=== PATIENT | male | born 1940 | race Caucasian/White ===

== ENCOUNTER 2023-06-04 13:21 | Inpatient (IN) ==
[2023-06-04] MEDS ORDERED: SODIUM CHLORIDE 0.9% 1,000 ML IV ONE (14:23)
[2023-06-04 14:30] LABS: Basophils # (auto) 0.02 K/uL (0.00-0.20); Basophils % (auto) 0.4 %; Eosinophils # (auto) 0.02 K/uL (0.00-0.50); Eosinophils % (auto) 0.4 %; Hematocrit (blood only) 31.8 % (42.0-52.0); Immature Granulocytes # (auto) 0.05 K/uL (0.01-0.20); Immature Granulocytes % (auto) 0.9 %; Lymphocytes # (auto) 1.39 K/uL (1.20-3.40); Lymphocytes % (auto) 25.8 %; Mean Corpuscular Hemoglobin 35.3 pg (25.0-34.0); Mean Corpuscular Hgb Conc 34.6 g/dL (32.0-36.0); Mean Corpuscular Volume 101.9 fL (80.0-100.0); Mean Platelet Volume 10.8 fL (9.4-12.4); Monocytes # (auto) 0.45 K/uL (0.11-0.59); Monocytes % (auto) 8.4 %; Neutrophils # (auto) 3.45 K/uL (1.40-6.50); Neutrophils % (auto) 64.1 %; Platelet Count 327 K/uL (130-400); RDW Coefficient of Variation 11.9 % (11.5-14.5); RDW Standard Deviation 44.4 fL (36.4-46.3); Red Blood Count 3.12 M/uL (4.70-6.10); White Blood Count 5.38 K/ul (4.8-10.8)
--- NOTE | 2023-06-04 14:32 | Emergency Department Note ---
Impression & Plan Generalized weakness, Anemia, Hypomagnesemia, Hypokalemia ED Provider Note NAME: JERZY PADILLA JR AGE: 82 SEX: M : 1940 ARRIVES VIA: Ambulance INFORMANT: Patient, the patient's significant other ED PROVIDER(S): Venkatesh Heard DO CHIEF COMPLAINT: Weakness HPI: The patient is an 82-year-old male who presented to the emergency department for an evaluation of generalized weakness. The patient's had ongoing symptoms over the course of the last few months. He normally drinks alcohol every evening. He did not see his family doctor recently but he did see his family doctor for the symptoms a month ago. He is noticed weight loss. He had a slight cough as well as nausea and vomiting. He denies having any headache. He denies having any chest pain or abdominal pain at this time. He denies having any swelling in his legs. ROS: See above HPI for pertinent positives & negatives. A total of 10 systems reviewed and were otherwise negative. PAST MEDICAL HISTORY: See Below PAST SURGICAL HISTORY: See Below FAMILY HISTORY: See Below SOCIAL HISTORY: See Below HOME MEDICATIONS: See Below ALLERGIES: See Below VITALS: See Below PHYSICAL EXAMINATION: GENERAL: Patient is awake alert in no acute distress patient is resting comfortably and showing no signs of anxiety EYES: The conjunctivae are clear. The pupils are round and reactive. EARS, NOSE, MOUTH AND THROAT: The nose is without any evidence of any deformity. Mucous membranes are dry. NECK: The neck is nontender and supple. RESPIRATORY: Normal respiratory effort is noted there is no evidence of wheezing rhonchi or rales CARDIOVASCULAR: Tachycardic and regular heart sounds were noted to auscultation. There is no murmur. GASTROINTESTINAL: The abdomen is soft. Abdomen is nontender. MUSCULOSKELETAL/EXTREMITIES: There is no evidence of gross deformity full range of motion is noted in the hips and shoulders. SKIN: There is no obvious evidence of any rash. There are no petechiae, pallor or cyanosis noted. NEUROLOGIC: Patient is awake alert and oriented x3. Strength was diminished but symmetric. MEDICAL DECISION MAKING: The patient is an 82-year-old male who presented to the emergency department with a significant other for generalized weakness. The patient has not been able to eat or drink well for the last 2 weeks. 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 The patient was very cachectic in appearance. He was found to have multiple electrolyte abnormalities. The patient was treated with IV fluids as well as magnesium and potassium replacement. I discussed the patient's laboratory and radiographic studies with him. I do not feel he would be a good candidate for outpatient management and further work-up. For this reason I discussed his case with the on-call [facility]ist. They have agreed to evaluate the patient in the emergency department for further management and disposition. Triage Nursing notes reviewed. Prior medical records reviewed. The patient's previous weights were reviewed. He had a significant weight loss compared to his visit in the spring. Vital Signs: reviewed and remarkable for no significant abnormalities Differential diagnosis: Infection, dehydration, metabolic abnormality, hypo/hyperglycemia, electrolyte disturbance, anemia, hypoxia, cardiac sources, intracerebral event, toxicologic, neurologic, as well as other pathologies. ER treatment provided: See below Diagnostics interpreted by me: ECG: EKG was obtained in the emergency department. My interpretation is sinus tachycardia at 114 bpm. There is no ectopy. ST segment depressions were noted in the low lateral and inferior leads. This was compared to a tracing from February 21, 2019. The ST segment abnormalities are not new however the rate is increased compared to the earlier tracing. A second EKG was obtained in the emergency department. My interpretation is sinus tachycardia at 102 bpm. There were no PVCs noted. Similar ST depressions were noted. This compares similar to the earlier tracing. Cardiac Monitoring: An order was placed for continuous cardiac monitoring. The monitor shows a rate of 85 bpm with sinus rhythm. Laboratory studies: As stated above and show below. Imaging studies: See below. Radiographic imaging was reviewed by myself Consultation(s): The [facility] hospitalist, Dr. Cobb was notified about the patient, he will evaluate the patient in the emergency department for further management and disposition Past Med/Surg History Medical History Dupuytren's contracture of hand Social History Smoking Status: Never smoker Preferred Language: [place] Feels Safe at Home: Yes Allergies Allergies Allergy/AdvReac Type Severity Reaction Status Date / Time shrimp Allergy Severe Hives and Unverified 06/04/23 18:16 GI Upset erythromycin base Allergy Unknown Unknown Unverified 06/04/23 18:16 Home Meds Home Medications Medication Instructions Recorded Confirmed ibuprofen 200 mg tablet 400 mg PO Q6H PRN Pain 02/21/19 06/04/23 esomeprazole magnesium 20 mg 20 mg PO DAILY 06/04/23 06/04/23 capsule,delayed release (Nexium 24HR) fexofenadine 180 mg tablet 180 mg PO DAILY 06/04/23 06/04/23 (Melissa Allergy) Results & Data (ED) Vital Signs Vital Signs - 24 hr 06/04/23 13:42 06/04/23 14:22 06/04/23 15:10 Temperature 36 C L Temperature Source Temporal Artery Scan Pulse Rate 121 H 107 H Pulse Rate [Apical] 82 Respiratory Rate 16 18 Respiratory Effort / Characteristics Non-Labored Spontaneous Spontaneous Respiratory Depth Normal Normal Respiratory Pattern Regular Regular Blood Pressure 101/73 Blood Pressure [Right Arm] 145/98 H Blood Pressure Mean 82 Blood Pressure Mean [Right Arm] 113 Blood Pressure Position [Right Arm] Pulse Oximetry 95 95 Oxygen Delivery Method Room Air Room Air Sepsis Recent Fever Within 48 Hours No Sepsis New/Unexplained Change in Mental Status N/A Sepsis Action Taken by Nursing No Action Required 06/04/23 13:47 06/04/23 17:00 06/04/23 18:16 Temperature Temperature Source Pulse Rate 82 Pulse Rate [Apical] 79 81 Respiratory Rate 18 18 18 Respiratory Effort / Characteristics Non-Labored Spontaneous Respiratory Depth Normal Respiratory Pattern Regular Blood Pressure Blood Pressure [Right Arm] 146/93 H 148/83 H Blood Pressure Mean Blood Pressure Mean [Right Arm] 110 104 Blood Pressure Position [Right Arm] Semi-fowlers Pulse Oximetry 95 100 97 Oxygen Delivery Method Room Air Room Air Room Air Sepsis Recent Fever Within 48 Hours Sepsis New/Unexplained Change in Mental Status Sepsis Action Taken by Nursing 06/04/23 19:00 Temperature Temperature Source Pulse Rate Pulse Rate [Apical] 85 Respiratory Rate 21 Respiratory Effort / Characteristics Respiratory Depth Respiratory Pattern Blood Pressure Blood Pressure [Right Arm] 137/88 Blood Pressure Mean Blood Pressure Mean [Right Arm] 104 Blood Pressure Position [Right Arm] Pulse Oximetry 98 Oxygen Delivery Method Sepsis Recent Fever Within 48 Hours Sepsis New/Unexplained Change in Mental Status Sepsis Action Taken by [place] Medications Current Medication List: was personally reviewed by me Laboratory Data Attestation: I reviewed the patient's lab results. 06/04/23 13:52 06/04/23 13:52 Lab Results 06/04/23 06/04/23 06/04/23 Range/Units 13:52 13:52 13:52 WBC 5.38 (4.8-10.8) K/ul RBC 3.12 L (4.70-6.10) M/uL Hgb 11.0 L (14.0-18.0) g/dl Hct 31.8 L (42.0-52.0) % MCV 101.9 H (80.0-100.0) fL MCH 35.3 H (25.0-34.0) pg MCHC 34.6 (32.0-36.0) g/dL RDW Std Deviation 44.4 (36.4-46.3) fL RDW Coeff of Shayan 11.9 (11.5-14.5) % Plt Count 327 (130-400) K/uL MPV 10.8 (9.4-12.4) fL Immature Gran % (Auto) 0.9 % Neut % (Auto) 64.1 % Lymph % (Auto) 25.8 % [place] % (Auto) 8.4 % Eos % (Auto) 0.4 % Baso % (Auto) 0.4 % Neut # (Auto) 3.45 (1.40-6.50) K/uL Lymph # (Auto) 1.39 (1.20-3.40) K/uL [place] # (Auto) 0.45 (0.11-0.59) K/uL Eos # (Auto) 0.02 (0.00-0.50) K/uL Baso # (Auto) 0.02 (0.00-0.20) K/uL Immature Gran # (Auto) 0.05 (0.01-0.20) K/uL PT 10.6 (9.0-12.0) Seconds INR 1.0 (0.9-1.1) APTT 23.9 (21.0-31.0) Seconds PTT Ratio 0.8 VBG pH (7.36-7.41) VBG pCO2 (38-50) mmHg VBG pO2 mmHg VBG HCO3 mmol/L VBG O2 Saturation % VBG Base Excess mEq/L Sodium 136 (136-145) mmol/L Potassium 3.1 L (3.5-5.1) mmol/L Chloride 97 L (98-107) mmol/L Carbon Dioxide 23 (21-32) mmol/L Anion Gap 16 H (3-11) BUN 18 (6-23) mg/dl Creatinine 0.58 L (0.6-1.4) mg/dl Est Cr Clr Drug Dosing Not Reportable Est GFR ( Amer) 110.0 ml/min Est GFR (Non-Af Amer) 94.9 ml/min BUN/Creatinine Ratio 31.0 H (10-20) Glucose 98 (70-99(Fasting)) mg/dl Lactate (0.4-2.0) mmol/L Calcium 9.1 (8.6-10.3) mg/dl Phosphorus (2.5-4.9) mg/dl Magnesium 1.6 L (1.7-2.4) mg/dl Total Bilirubin 0.7 (0.2-1.0) mg/dl AST 36 (13-39) U/L ALT 14 (7-52) U/L Alkaline Phosphatase 62 (34-104) U/L Troponin I High Sens 7.1 (0-20) pg/ml C-Reactive Protein 4.13 H (0-0.5) mg/dl Total Protein 7.5 (6.0-8.3) gm/dl Albumin 3.2 L (3.4-5.0) gm/dl Globulin 4.3 H (2.5-4.0) gm/dl Albumin/Globulin Ratio 0.7 L (0.9-2) Lipase (11-82) U/L Procalcitonin (0-0.5) ng/ml TSH 2.309 (0.300-4.500) uIu/ml Adenovirus (PCR) (NotDetected) B. pertussis DNA (PCR) (NotDetected) B.parapertussis DNA PCR (NotDetected) C. pneumoniae DNA (PCR) (NotDetected) Coronavirus OC43 (PCR) (NotDetected) Coronavirus HKU1 (PCR) (NotDetected) Coronavirus 229E (PCR) (NotDetected) SARS-CoV-2 (PCR) (NotDetected) Coronavirus NL63 (PCR) (NotDetected) Human Metapneumovir PCR (NotDetected) Influenza Type A (PCR) (NotDetected) Influenza Type B (PCR) (NotDetected) M. pneumoniae (PCR) (NotDetected) Parainfluenza 1 (PCR) (NotDetected) Parainfluenza 2 (PCR) (NotDetected) Parainfluenza 3 (PCR) (NotDetected) Parainfluenza 4 (PCR) (NotDetected) RSV (PCR) (NotDetected) Entero/Rhino (PCR) (NotDetected) 06/04/23 06/04/23 06/04/23 Range/Units 15:00 15:05 15:05 WBC (4.8-10.8) K/ul RBC (4.70-6.10) M/uL Hgb (14.0-18.0) g/dl Hct (42.0-52.0) % MCV (80.0-100.0) fL MCH (25.0-34.0) pg MCHC (32.0-36.0) g/dL RDW Std Deviation (36.4-46.3) fL RDW Coeff of Shayan (11.5-14.5) % Plt Count (130-400) K/uL MPV (9.4-12.4) fL Immature Gran % (Auto) % Neut % (Auto) % Lymph % (Auto) % [place] % (Auto) % Eos % (Auto) % Baso % (Auto) % Neut # (Auto) (1.40-6.50) K/uL Lymph # (Auto) (1.20-3.40) K/uL [place] # (Auto) (0.11-0.59) K/uL Eos # (Auto) (0.00-0.50) K/uL Baso # (Auto) (0.00-0.20) K/uL Immature Gran # (Auto) (0.01-0.20) K/uL PT (9.0-12.0) Seconds INR (0.9-1.1) APTT (21.0-31.0) Seconds PTT Ratio VBG pH (7.36-7.41) VBG pCO2 (38-50) mmHg VBG pO2 mmHg VBG HCO3 mmol/L VBG O2 Saturation % VBG Base Excess mEq/L Sodium (136-145) mmol/L Potassium (3.5-5.1) mmol/L Chloride (98-107) mmol/L Carbon Dioxide (21-32) mmol/L Anion Gap (3-11) BUN (6-23) mg/dl Creatinine (0.6-1.4) mg/dl Est Cr Clr Drug Dosing Est GFR ( Amer) ml/min Est GFR (Non-Af Amer) ml/min BUN/Creatinine Ratio (10-20) Glucose (70-99(Fasting)) mg/dl Lactate 2.5 H* (0.4-2.0) mmol/L Calcium (8.6-10.3) mg/dl Phosphorus (2.5-4.9) mg/dl Magnesium (1.7-2.4) mg/dl Total Bilirubin (0.2-1.0) mg/dl AST (13-39) U/L ALT (7-52) U/L Alkaline Phosphatase (34-104) U/L Troponin I High Sens (0-20) pg/ml C-Reactive Protein (0-0.5) mg/dl Total Protein (6.0-8.3) gm/dl Albumin (3.4-5.0) gm/dl Globulin (2.5-4.0) gm/dl Albumin/Globulin Ratio (0.9-2) Lipase (11-82) U/L Procalcitonin < 0.05 (0-0.5) ng/ml TSH (0.300-4.500) uIu/ml Adenovirus (PCR) Not Detected (NotDetected) B. pertussis DNA (PCR) Not Detected (NotDetected) B.parapertussis DNA PCR Not Detected (NotDetected) C. pneumoniae DNA (PCR) Not Detected (NotDetected) Coronavirus OC43 (PCR) Not Detected (NotDetected) Coronavirus HKU1 (PCR) Not Detected (NotDetected) Coronavirus 229E (PCR) Not Detected (NotDetected) SARS-CoV-2 (PCR) Not Detected (NotDetected) Coronavirus NL63 (PCR) Not Detected (NotDetected) Human Metapneumovir PCR Not Detected (NotDetected) Influenza Type A (PCR) Not Detected (NotDetected) Influenza Type B (PCR) Not Detected (NotDetected) M. pneumoniae (PCR) Not Detected (NotDetected) Parainfluenza 1 (PCR) Not Detected (NotDetected) Parainfluenza 2 (PCR) Not Detected (NotDetected) Parainfluenza 3 (PCR) Not Detected (NotDetected) Parainfluenza 4 (PCR) Not Detected (NotDetected) RSV (PCR) Not Detected (NotDetected) Entero/Rhino (PCR) Not Detected (NotDetected) 06/04/23 06/04/23 06/04/23 Range/Units 15:05 18:06 18:06 WBC (4.8-10.8) K/ul RBC (4.70-6.10) M/uL Hgb (14.0-18.0) g/dl Hct (42.0-52.0) % MCV (80.0-100.0) fL MCH (25.0-34.0) pg MCHC (32.0-36.0) g/dL RDW Std Deviation (36.4-46.3) fL RDW Coeff of Shayan (11.5-14.5) % Plt Count (130-400) K/uL MPV (9.4-12.4) fL Immature Gran % (Auto) % Neut % (Auto) % Lymph % (Auto) % [place] % (Auto) % Eos % (Auto) % Baso % (Auto) % Neut # (Auto) (1.40-6.50) K/uL Lymph # (Auto) (1.20-3.40) K/uL [place] # (Auto) (0.11-0.59) K/uL Eos # (Auto) (0.00-0.50) K/uL Baso # (Auto) (0.00-0.20) K/uL Immature Gran # (Auto) (0.01-0.20) K/uL PT (9.0-12.0) Seconds INR (0.9-1.1) APTT (21.0-31.0) Seconds PTT Ratio VBG pH 7.37 (7.36-7.41) VBG pCO2 42 (38-50) mmHg VBG pO2 29 mmHg VBG HCO3 24 mmol/L VBG O2 Saturation < 60.0 % VBG Base Excess -1.0 mEq/L Sodium (136-145) mmol/L Potassium (3.5-5.1) mmol/L Chloride (98-107) mmol/L Carbon Dioxide (21-32) mmol/L Anion Gap (3-11) BUN (6-23) mg/dl Creatinine (0.6-1.4) mg/dl Est Cr Clr Drug Dosing Est GFR ( Amer) ml/min Est GFR (Non-Af Amer) ml/min BUN/Creatinine Ratio (10-20) Glucose (70-99(Fasting)) mg/dl Lactate 1.4 (0.4-2.0) mmol/L Calcium (8.6-10.3) mg/dl Phosphorus 3.0 (2.5-4.9) mg/dl Magnesium (1.7-2.4) mg/dl Total Bilirubin (0.2-1.0) mg/dl AST (13-39) U/L ALT (7-52) U/L Alkaline Phosphatase (34-104) U/L Troponin I High Sens (0-20) pg/ml C-Reactive Protein (0-0.5) mg/dl Total Protein (6.0-8.3) gm/dl Albumin (3.4-5.0) gm/dl Globulin (2.5-4.0) gm/dl Albumin/Globulin Ratio (0.9-2) Lipase 16 (11-82) U/L Procalcitonin (0-0.5) ng/ml TSH (0.300-4.500) uIu/ml Adenovirus (PCR) (NotDetected) B. pertussis DNA (PCR) (NotDetected) B.parapertussis DNA PCR (NotDetected) C. pneumoniae DNA (PCR) (NotDetected) Coronavirus OC43 (PCR) (NotDetected) Coronavirus HKU1 (PCR) (NotDetected) Coronavirus 229E (PCR) (NotDetected) SARS-CoV-2 (PCR) (NotDetected) Coronavirus NL63 (PCR) (NotDetected) Human Metapneumovir PCR (NotDetected) Influenza Type A (PCR) (NotDetected) Influenza Type B (PCR) (NotDetected) M. pneumoniae (PCR) (NotDetected) Parainfluenza 1 (PCR) (NotDetected) Parainfluenza 2 (PCR) (NotDetected) Parainfluenza 3 (PCR) (NotDetected) Parainfluenza 4 (PCR) (NotDetected) RSV (PCR) (NotDetected) Entero/Rhino (PCR) (NotDetected) Administered Medications Discontinued Medications Sodium Chloride (Nss) 1,000 mls @ 999 mls/hr IV .Q1H1M ONE Stop: 06/04/23 15:23 Last Infusion: 06/04/23 15:53 Dose: 0 mls/hr Documented By: Admin: 06/04/23 14:52 Dose: 999 mls/hr Documented By: MADELINE Magnesium Sulfate/Dextrose (Magnesium Sulfate / D5w) 1 gm in 100 mls @ 100 mls/hr IV NOW STA Stop: 06/04/23 15:42 Last Infusion: 06/04/23 15:53 Dose: 0 mls/hr Documented By: Admin: 06/04/23 14:53 Dose: 100 mls/hr Documented By: MADELINE Potassium Chloride (K Jasson / Wtr) 10 meq in 100 mls @ 100 mls/hr IV ONE ONE Stop: 06/04/23 15:42 Last Infusion: 06/04/23 15:53 Dose: 0 mls/hr Documented By: Admin: 06/04/23 14:53 Dose: 100 mls/hr Documented By: MADELINE Ioversol (Optiray 320 100ml) 90 ml IV ONCE ONE Stop: 06/04/23 18:38 Last Admin: 06/04/23 18:37 Dose: 90 ml Documented By: HIPOLITO Imaging Data Attestation: I personally reviewed and interpreted this imaging study as follows: My Impression: 1 view chest x-ray was obtained in the emergency department. My interpretation is no free air or definite infiltrate, final report below Radiologist's Impression: Chest X-Ray 06/04/23 13:47 SINGLE VIEW CHEST CLINICAL HISTORY: Generalized weakness. FINDINGS: 2 AP, portable, upright chest radiographs are compared to chest x-ray and chest CT dated 02/21/2019. The cardiomediastinal silhouette is unremarkable. Chronic interstitial thickening is similar to previous. The lungs and pleural spaces are clear. No pneumothorax is seen. The skeletal structures are osteopenic. The bony thorax is grossly intact. IMPRESSION: No active disease in the chest. ACT 112: Negative or not required by law. Electronically signed by: Vladislav Wang M.D. 06/04/2023 2:34 PM Abdomen/Pelvis CT 06/04/23 18:01 Exam(s): CT ABDOMEN + PELVIS With Contrast IV Amt: 90 ml optiray 320 EXAM: CT Abdomen and Pelvis With Intravenous Contrast CLINICAL HISTORY: Reason for exam: cachetic, change bowel habit, dysphagia? malignancy. TECHNIQUE: Axial computed tomography images of the abdomen and pelvis with intravenous contrast. CTDI is 15.49 mGy and DLP is 1186.72 mGy-cm. Automated exposure control was utilized for the study. A dose lowering technique was utilized adhering to the principles of ALARA. CONTRAST: Patient received 90 ml optiray 320 of IV contrast COMPARISON: No relevant prior studies available. FINDINGS: Lung bases: Unremarkable. No mass. No consolidation. 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 Slight fatty infiltration of the liver, increased since previous. Gallbladder and bile ducts: Unremarkable. No calcified stones. No ductal dilation. Pancreas: Unremarkable. No mass. No ductal dilation. Spleen: Unremarkable. No splenomegaly. Adrenals: Unremarkable. No mass. Kidneys and ureters: Unremarkable. No solid mass. No hydronephrosis. Stomach and bowel: Bowel loops are nondilated. No acute inflammatory changes are seen involving the bowel. No mucosal thickening. PELVIS: Appendix: No findings to suggest acute appendicitis. Bladder: Unremarkable. No mass. Reproductive: Unremarkable as visualized. ABDOMEN and PELVIS: Intraperitoneal space: Unremarkable. No free air. No significant fluid collection. Bones/joints: Moderate to severe multilevel degenerative changes are seen throughout the spine. No acute fracture or subluxation is seen. Soft tissues: Unremarkable. Vasculature: The abdominal aorta is mildly calcified but nondilated. There is no aneurysm or dissection. Lymph nodes: Unremarkable. No enlarged lymph nodes. IMPRESSION: Bowel loops are nondilated. No acute inflammatory changes are seen involving the bowel. No mass or lymphadenopathy is seen. Electronically signed by: Miguel Shi MD 06/04/23 19:[address] 06/04/23 18:01 Exam(s): CT CHEST With Contrast IV Amt: 90 ml optiray 320 EXAM: CT Chest With Intravenous Contrast CLINICAL HISTORY: Reason for exam: cachetic, left ptosis, cough, dysphagia ?malignancy. TECHNIQUE: Axial computed tomography images of the chest with intravenous contrast. CTDI is 15.49 mGy and DLP is 1186.72 mGy-cm. Automated exposure control was utilized for the study. A dose lowering technique was utilized adhering to the principles of ALARA. CONTRAST: Patient received 90 ml optiray 320 of IV contrast COMPARISON: February 21, 2019 FINDINGS: Lungs: Small amount of scarring in the lung apices and lung bases. No acute appearing airspace infiltrate is seen. Pleural space: Unremarkable. No pneumothorax. No significant effusion. Heart: The heart is not enlarged. Severe coronary calcification is present. No pericardial effusion. Bones/joints: Moderate multilevel osteophytosis throughout the spine. No acute fracture or destructive bone lesion is seen. No dislocation. Soft tissues: Unremarkable. 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 There is no dissection. The pulmonary arterial tree is well opacified with contrast. No pulmonary embolism is identified. Lymph nodes: Unremarkable. No enlarged lymph nodes. IMPRESSION: 1. 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 There is no dissection. 2. The pulmonary arterial tree is well opacified with contrast. No pulmonary embolism is identified. 3. The heart is not enlarged. Severe coronary calcification is present. No pericardial effusion. Electronically signed by: Miguel Shi MD 06/04/23 19:42 PM Discharge Plan Visit Data Chief Complaint: Weakness Stated Complaint: WEAKNESS ED Provider: Venkatesh Heard Discharge Problem: Generalized weakness, Anemia, Hypomagnesemia, Hypokalemia Patient Disposition: Being Evaluated by Hospitalist Forms Stand Alone Forms: [facility] [employer] Prescriptions Prescriptions: No Action ibuprofen 200 mg Tablet 400 mg PO Q6H PRN (Reason: Pain) fexofenadine [Melissa Allergy] 180 mg Tablet 180 mg PO DAILY esomeprazole magnesium [Nexium 24HR] 20 mg Capsule,Delayed Release(Dr/Ec) 20 mg PO DAILY Referrals Referrals: Sea Roberts [Primary Care Provider] -
--- NOTE | 2023-06-04 14:35 | XRay Report ---
SINGLE VIEW CHEST CLINICAL HISTORY: Generalized weakness. FINDINGS: 2 AP, portable, upright chest radiographs are compared to chest x-ray and chest CT dated . The cardiomediastinal silhouette is unremarkable. Chronic interstitial thickening is similar to previous. The lungs and pleural spaces are clear. No pneumothorax is seen. The skeletal structure s are osteopenic. The bony thorax is grossly intact. IMPRESSION: No active disease in the chest. ACT 112: Negative or not required by law. Electronically signed by: Vladislav Wang M.D. 06/04/2023 2:34 PM
[2023-06-04 14:38] LABS: Alanine Aminotransferase 14 U/L (7-52); Albumin Globulin Ratio 0.7 (0.9-2); Albumin Level 3.2 gm/dl (3.4-5.0); Alkaline Phosphatase 62 U/L (34-104); Anion Gap 16 (3-11); Aspartate Aminotransferase 36 U/L (13-39); Bilirubin,Total 0.7 mg/dl (0.2-1.0); Blood Urea Nitrogen 18 mg/dl (6-23); Calcium 9.1 mg/dl (8.6-10.3); Carbon Dioxide 23 mmol/L (21-32); Chloride 97 mmol/L (98-107); Est GFR (Non-African American) 94.9 ml/min; Globulin 4.3 gm/dl (2.5-4.0); Glucose 98 mg/dl (70-99(Fasting)); Magnesium 1.6 mg/dl (1.7-2.4); Potassium 3.1 mmol/L (3.5-5.1); Sodium 136 mmol/L (136-145); Total Protein 7.5 gm/dl (6.0-8.3)
[2023-06-04] MEDS ORDERED: MAGNESIUM SULFATE / D5W 1 GM/100 ML BAG IV STA (14:43)
[2023-06-04] MEDS ORDERED: POTASSIUM CHLORIDE / WTR 10 MEQ/100 ML PLCT IV ONE (14:43)
[2023-06-04 14:44] LABS: Troponin I High Sensitivity 7.1 pg/ml (0-20)
[2023-06-04 14:53] LABS: Thyroid Stimulating Hormone 2.309 uIu/ml (0.300-4.500)
[2023-06-04 15:07] LABS: Partial Thromboplastin Ratio 0.8; Partial Thromboplastin Time 23.9 Seconds (21.0-31.0); Prothrombin Time 10.6 Seconds (9.0-12.0)
[2023-06-04 15:08] LABS: C Reactive Protein 4.13 mg/dl (0-0.5)
[2023-06-04 15:24] LABS: HCO3 VBG 24 mmol/L; Oxygen Saturation VBG < 60.0 %; PCO2 VBG 42 mmHg (38-50); PO2 VBG 29 mmHg; pH VBG 7.37 (7.36-7.41)
[2023-06-04 16:14] LABS: Adenovirus PCR Not Detected (NotDetected); Bordetella parapertussis PCR Not Detected (NotDetected); Bordetella pertussis PCR Not Detected (NotDetected); Chlamydia pneumoniae PCR Not Detected (NotDetected); Coronavirus 229E PCR Not Detected (NotDetected); Coronavirus CoV-2 (COVID19)PCR Not Detected (NotDetected); Coronavirus HKU1 PCR Not Detected (NotDetected); Coronavirus NL63 PCR Not Detected (NotDetected); Coronavirus OC43PCR Not Detected (NotDetected); Human Metapneumovirus PCR Not Detected (NotDetected); Influenza A PCR Not Detected (NotDetected); Influenza B PCR Not Detected (NotDetected); Mycoplasma pneumoniae PCR Not Detected (NotDetected); Parainfluenza Virus 1 PCR Not Detected (NotDetected); Parainfluenza Virus 2 PCR Not Detected (NotDetected); Parainfluenza Virus 3 PCR Not Detected (NotDetected); Parainfluenza Virus 4 PCR Not Detected (NotDetected); Respiratory Syncytial VirusPCR Not Detected (NotDetected); Rhinovirus/Enterovirus PCR Not Detected (NotDetected)
--- NOTE | 2023-06-04 17:36 | Electrocardiogram Report ---
Test Reason : Blood Pressure : / mmHG Vent. Rate : 102 BPM Atrial Rate : 102 BPM P-R Int : 154 ms QRS Dur : 082 ms QT Int : 380 ms P-R-T Axes : 076 -16 079 degrees QTc Int : 495 ms Sinus tachycardia Nonspecific ST and T wave abnormality Abnormal ECG When compared with ECG of 21-FEB-2019 08:51, Vent. rate has increased BY 39 BPM Nonspecific T wave abnormality now evident in Lateral leads QT has lengthened Confirmed by Dale Altamirano ([id number]) on 06/04/2023 5:36:28 PM Referred By: REFERRED SELF Confirmed By:Drew Altamirano
--- NOTE | 2023-06-04 18:01 | History & Physical Report ---
Date of Service June 04, 2023 Assessment & Plan (1) Generalized weakness: Plan: Suspect due to general malnourishment in setting of dysphagia Dietary consulted Workup for dysphagia as below B1/B12 levels with AM labs PT/OT assessments (2) Dysphagia: Plan: Concerning for esophageal vs. mass. Increasing dysphagia to solids causing severe malnutrition. Will consult GI to consider inpatient EGD. CT C/A/P with IV contrast to assess for large mass given concurrent weight loss, cough, left sided ptosis Full liquid now, NPO after midnight (3) Hypomagnesemia: Plan: Suspect from poor nutrition Mg sulfate 1g IV given in ER, continue additional 2g IV overnight with repeat level daily until stable (4) Hypokalemia: Plan: Suspect from poor nutrition Add 40 meq to IV fluids and repeat with AM labs (5) Macrocytic anemia: Plan: B12 and folate level with AM labs (6) Severe protein-calorie malnutrition: Plan: Consult dietary, will likely need full liquid diet until EGD performed therefore GI to consider this inpatient to help with malnutrition Plan VTE Prophylaxis - deferred pending EGD Diet - full liquid, NPO after midnight Disposition - admit to med/surg Admission and Anticipated Discharge Date Admission Date: June 04, 2023 History of Present Illness Chief Complaint: Generalized weakness Primary Care Provider: Sea Roberts Ahmet Alvarez is an 82 year old male who presents to the ER due to generalized weakness, dysphagia, ptosis and cough. He reports 2 months of progressive worsening symptoms. He was going to go to his outpatient physician 2 weeks ago but the family were having car troubles and unable to take him. His bilateral weakness was so bad this morning that he asked his to call for an ambulance to take him to hospital. He reports significant weight loss over the same time period and review of chart weight reports 10 kg weight loss since December. He has been eating and drinking less with less bowel movements. Having less of an appetite but also thicker foods such as belgian fries have been getting progressively stuck, no current problems with liquids. No change in speech or vision although he has had progressive problems with left eye ptosis over the same period of time. Weakness is bilateral. No change in sensation. No chest pain or abdominal pain. No urinary symptoms. No fever or chills. No odynophagia. Allergies Allergy/AdvReac Type Severity Reaction Status Date / Time shrimp Allergy Severe Hives and Unverified 06/04/23 18:16 GI Upset erythromycin base Allergy Unknown Unknown Unverified 06/04/23 18:16 Home Medications Medication Instructions Recorded Confirmed Type ibuprofen 200 mg tablet 400 mg PO Q6H PRN Pain 02/21/19 06/04/23 History esomeprazole magnesium 20 mg 20 mg PO DAILY 06/04/23 06/04/23 History capsule,delayed release (Nexium 24HR) fexofenadine 180 mg tablet 180 mg PO DAILY 06/04/23 06/04/23 History (Melissa Allergy) Past Med/Surg History Medical History Dupuytren's contracture of hand Social History Smoking Status: Never smoker Hx Alcohol Use: Yes Hx Substance Use: No Preferred Language: Lithuanian Communication Ability: Effective Sports Marketing Specialist Required: No Beliefs That Will Affect Care: None Current Living Situation: Spouse Feels Safe at Home: Yes Safety Concerns: Feels Safe At This Time Assistive Devices: Other Assistive Devices Comment: clutches to furniture Review of Systems Review of Systems: All systems reviewed & are unremarkable except as noted in HPI & below Physical Exam Constitutional: well developed and + cachectic; + not well nourished and no acute distress Eyes: Left ptosis, Difficult to assess pupil reflex as unable to keep eyes open but appears equal ENMT: Mouth: + dry oral mucous membranes Respiratory: normal respiratory effort, lungs clear to auscultation Cardiovascular: RRR, no murmur, no edema Gastrointestinal (Abdomen): Inspection/Auscultation: abdomen normal to inspection and + hypoactive bowel sounds; abdomen not distended Percussion/Palpation: abdomen soft; abdomen nontender, no guarding and abdomen not rigid Skin: no rashes, warm and dry Neurologic: moves all extremities and awake; not confused Psychiatric: A+Ox3, euthymic affect Genitourinary: no CVA tenderness Results & Data Results & Data Vital Signs (Past 12 Hours) Vital Signs Temp Pulse Pulse Resp BP BP Pulse Ox 06/04/23 17:00 79 18 146/93 H 100 06/04/23 13:47 82 18 95 06/04/23 15:10 82 18 145/98 H 95 06/04/23 14:22 107 H 06/04/23 13:42 36 C L 121 H 16 101/73 95 O2 Del Method 06/04/23 17:00 Room Air 06/04/23 13:47 Room Air 06/04/23 15:10 Room Air 06/04/23 14:22 06/04/23 13:42 Room Air Laboratory Results Abnormal lab results 06/04/23 06/04/23 06/04/23 Range/Units 13:52 13:52 15:05 RBC 3.12 L (4.70-6.10) M/uL Hgb 11.0 L (14.0-18.0) g/dl Hct 31.8 L (42.0-52.0) % MCV 101.9 H (80.0-100.0) fL MCH 35.3 H (25.0-34.0) pg Potassium 3.1 L (3.5-5.1) mmol/L Chloride 97 L (98-107) mmol/L Anion Gap 16 H (3-11) Creatinine 0.58 L (0.6-1.4) mg/dl BUN/Creatinine Ratio 31.0 H (10-20) Lactate 2.5 H* (0.4-2.0) mmol/L Magnesium 1.6 L (1.7-2.4) mg/dl C-Reactive Protein 4.13 H (0-0.5) mg/dl Albumin 3.2 L (3.4-5.0) gm/dl Globulin 4.3 H (2.5-4.0) gm/dl Albumin/Globulin Ratio 0.7 L (0.9-2) Diagnostic Findings SINGLE VIEW CHEST CLINICAL HISTORY: Generalized weakness. FINDINGS: 2 AP, portable, upright chest radiographs are compared to chest x-ray and chest CT dated 02/21/2019. The cardiomediastinal silhouette is unremarkable. Chronic interstitial thickening is similar to previous. The lungs and pleural spaces are clear. No pneumothorax is seen. The skeletal structures are osteopenic. The bony thorax is grossly intact. IMPRESSION: No active disease in the chest. Medications Administered ER Medications Given: Normal saline 1000ml bolus Magnesium sulfate 1g IV Potassium chloride 10 meq IV ECG Rate (beats per minute): 102 Rhythm: sinus tachycardia Findings: + nonspecific-ST abn Comparison ECG Date: from (21 February 2019) Change: no significant change Code Status & VTE Plan Code Status Full VTE Prophylaxis Plan VTE Prophylaxis will be ordered: Yes PG Care Time/CCT Total # of Minutes Spent Total Time Spent with Patient: Total time spent is greater than 50% in coordination of care (as documented) at patient's floor/unit and/or counseling patient: Coding Level of Care Code 52398 INT INP/OBS CARE 3/75MIN Diagnoses Generalized weakness R53.1 Esophageal dysphagia R13.19 Dysphagia type: esophageal phase Hypomagnesemia E83.42 Hypokalemia E87.6 Macrocytic anemia D53.9 Severe protein-calorie malnutrition E43 (2) Dysphagia Dysphagia type: esophageal phase Qualified Code(s): R13.19 - Other dysphagia
[2023-06-04] MEDS ORDERED: OPTIRAY 320 100ml IV ONE (18:37)
--- NOTE | 2023-06-04 19:43 | CT Scan Report ---
Exam(s): CT CHEST With Contrast IV Amt: 90 ml optiray 320 EXAM: CT Chest With Intravenous Contrast CLINICAL HISTORY: Reason for exam: cachetic, left ptosis, cough, dysphagia ?malignancy. TECHNIQUE: Axial computed tomography images of the chest with intravenous contrast. CTDI is 15.49 mGy and DLP is 1186.72 mGy-cm. Automated exposure control was utilized for the study. A dose lowering technique was utilized adhering to the principles of ALARA. CONTRAST: Patient received 90 ml optiray 320 of IV contrast COMPARISON: February 21, 2019 FINDINGS: Lungs: Small amount of scarring in the lung apices and lung bases. No acute appearing airspace infiltrate is seen. Pleural space: Unremarkable. No pneumothorax. No significant effusion. Heart: The heart is not enlarged. Severe coronary calcification is present. No pericardial effusion. Bones/joints: Moderate multilevel osteophytosis throughout the spine. No acute fracture or destructive bone lesion is seen. No dislocation. Soft tissues: Unremarkable. 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 There is no dissection. The pulmonary arterial tree is well opacified with contrast. No pulmonary embolism is identified. Lymph nodes: Unremarkable. No enlarged lymph nodes. IMPRESSION: 1. 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 There is no dissection. 2. The pulmonary arterial tree is well opacified with contrast. No pulmonary embolism is identified. 3. The heart is not enlarged. Severe coronary calcification is present. No pericardial effusion. Electronically signed by: Miguel Shi MD 06/04/23 19:42 PM
--- NOTE | 2023-06-04 19:51 | CT Scan Report ---
Exam(s): CT ABDOMEN + PELVIS With Contrast IV Amt: 90 ml optiray 320 EXAM: CT Abdomen and Pelvis With Intravenous Contrast CLINICAL HISTORY: Reason for exam: cachetic, change bowel habit, dysphagia? malignancy. TECHNIQUE: Axial computed tomography images of the abdomen and pelvis with intravenous contrast. CTDI is 15.49 mGy and DLP is 1186.72 mGy-cm. Automated exposure control was utilized for the study. A dose lowering technique was utilized adhering to the principles of ALARA. CONTRAST: Patient received 90 ml optiray 320 of IV contrast COMPARISON: No relevant prior studies available. FINDINGS: Lung bases: Unremarkable. No mass. No consolidation. 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 Slight fatty infiltration of the liver, increased since previous. Gallbladder and bile ducts: Unremarkable. No calcified stones. No ductal dilation. Pancreas: Unremarkable. No mass. No ductal dilation. Spleen: Unremarkable. No splenomegaly. Adrenals: Unremarkable. No mass. Kidneys and ureters: Unremarkable. No solid mass. No hydronephrosis. Stomach and bowel: Bowel loops are nondilated. No acute inflammatory changes are seen involving the bowel. No mucosal thickening. PELVIS: Appendix: No findings to suggest acute appendicitis. Bladder: Unremarkable. No mass. Reproductive: Unremarkable as visualized. ABDOMEN and PELVIS: Intraperitoneal space: Unremarkable. No free air. No significant fluid collection. Bones/joints: Moderate to severe multilevel degenerative changes are seen throughout the spine. No acute fracture or subluxation is seen. Soft tissues: Unremarkable. Vasculature: The abdominal aorta is mildly calcified but nondilated. There is no aneurysm or dissection. Lymph nodes: Unremarkable. No enlarged lymph nodes. IMPRESSION: Bowel loops are nondilated. No acute inflammatory changes are seen involving the bowel. No mass or lymphadenopathy is seen. Electronically signed by: Miguel Shi MD 06/04/23 19:50 PM
[2023-06-04] MEDS: POTASSIUM CHLORIDE 40 MEQ in D5W AND 1/2NSS 1,000 ML IV SCH (21:49)
[2023-06-04] MEDS: MAGNESIUM SULFATE / D5W 1 GM/100 ML BAG IV SCH ×2 (21:50→23:37)
[2023-06-05 06:41] LABS: Basophils # (auto) 0.03 K/uL (0.00-0.20); Basophils % (auto) 0.7 %; Eosinophils # (auto) 0.04 K/uL (0.00-0.50); Eosinophils % (auto) 0.9 %; Hematocrit (blood only) 30.7 % (42.0-52.0); Hemoglobin 10.6 g/dl (14.0-18.0); Immature Granulocytes # (auto) 0.07 K/uL (0.01-0.20); Immature Granulocytes % (auto) 1.6 %; Lymphocytes # (auto) 0.98 K/uL (1.20-3.40); Lymphocytes % (auto) 22.3 %; Mean Corpuscular Hemoglobin 35.2 pg (25.0-34.0); Mean Corpuscular Hgb Conc 34.5 g/dL (32.0-36.0); Mean Platelet Volume 10.2 fL (9.4-12.4); Monocytes # (auto) 0.39 K/uL (0.11-0.59); Monocytes % (auto) 8.9 %; Neutrophils # (auto) 2.88 K/uL (1.40-6.50); Neutrophils % (auto) 65.6 %; Platelet Count 233 K/uL (130-400); RDW Standard Deviation 45.1 fL (36.4-46.3); Red Blood Count 3.01 M/uL (4.70-6.10); White Blood Count 4.39 K/ul (4.8-10.8)
[2023-06-05 07:01] LABS: BUN Creatinine Ratio 32.6 (10-20); Calcium 8.6 mg/dl (8.6-10.3); Creatinine Clr Calc Pharmacy 91.9 ml/min; Est GFR (Non-African American) 104.4 ml/min; Magnesium 2.3 mg/dl (1.7-2.4); Potassium 3.6 mmol/L (3.5-5.1)
--- NOTE | 2023-06-05 07:39 | Hospitalist Progress Note ---
Date of Service June 05, 2023 Assessment & Plan (1) Generalized weakness: Plan: Severe generalized weakness, solid food dysphagia, significant unintentional weight loss, electrolyte disturbances likely nutritional, elevated inflammatory markers (CRP >4) Left eye ptosis Suspect due to general malnourishment in setting of dysphagia Nutrition consulted Workup for dysphagia as below B1 - P treat empirically, B12 = 384 start oral supplement when able PT/OT assessments check phos = normal 3.0, repleted mag = 2.3 and K - 3.6. Likely to need additional potassium repletion - currently has K in IVF, AM BMP (2) Dysphagia: Plan: Consulted GI - EGD planned tomorrow CT C/A/P with IV contrast 06/04 reviewed - no findings to explain clinical picture Full liquid now, NPO after midnight IV PPI pending further evaluation (3) Hypomagnesemia: Plan: from poor nutrition replaced IV, recheck in AM (4) Hypokalemia: Plan: from poor nutrition continue 40 meq to IV fluids and repeat with AM labs (5) Severe protein-calorie malnutrition: Plan: will likely need full liquid diet until EGD performed therefore GI to consider this inpatient to help with malnutrition -nutrition consult (6) Ptosis of eyelid, 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 (years) he sees specialists in [place] and has multiple eyelid surgeries, last a year ago (7) Macrocytic anemia: Plan: B12 and folate level with AM labs (8) Positive blood culture: Plan: staph epi in 3/4 bottles drawn in ED -contaminant vs bacteremia -start IV vancomycin -repeat blood cultures -TTE (9) Folate deficiency: Plan: with macrocytic anemia -supplement folate and thiamine empirically - B1 level pending -B12 low normal - supplement with po when able (10) ASCVD (arteriosclerotic cardiovascular disease): Plan: ASCVD - Severe coronary calcification, aortic ectasia 4 cm noted on chest CT -address risk factor reduction once other issues stabilized and taking po Plan Hypertension? monitor BP - labile so far Hypothermia - check TSH = normal 2.309, and cortisol = 15 Anemia, leukopenia / lymphopenia Elevated anion gap metabolic acidosis, mild lactate elevation - volume depletion, resolved with IVF VTE Prophylaxis - deferred pending EGD Diet - full liquid, NPO after midnight Disposition - PT/OT eval Admission and Anticipated Discharge Date Admission Date: June 04, 2023 Subjective Mr. Alvarez is accompanied by his and sister at the bedside. He has had poor oral intake for many months and had trouble with solid food dysphagia for months. Weight loss has been going on for at least months. He has been too weak to walk without assistance for possibly 2 months and thus stopped leaving the house because eventually he could not get up and down the stairs in the split-level even with the help of his . He has had multiple falls, he can no longer get up to standing without significant assistance. He denies any fevers chills or sweats, neck pain mouth lesions odynophagia, cough chest pain shortness of breath, nausea vomiting or diarrhea, hematochezia or melena, dysuria or urinary problems, arthritis or skin rashes other than the dermatitis that is present on his face. He states this is rosacea. the left eyelid droopiness has been present for years and he has had multiple surgeries on the eyelid, he denies double or blurry vision. Physical Exam Physical Exam: PHYSICAL EXAMINATION Last 24h vital signs reviewed, see documentation in flowsheet General: cachectic and frail appearing gentleman wrapped in blankets reclining in bed HEENT: Normocephalic, atraumatic, pupils round and equal, sclerae anicteric, no conjunctival injection, Left eyelid ptosis although he cannot completely open the eyelid with effort, dry mucus membranes, angular cheilitis, bitemporal wa sting Lungs: Normal respiratory effort. Clear to auscultation bilaterally. No RRW Heart: Regular rate and rhythm, no murmurs. No JVD Abdomen: Soft, nontender, nondistended. Bowel sounds present. Extremities: Warm, dry, well-perfused. No extremity edema. sarcopenia Neuro: Alert and oriented x 4, face symmetric, EOMI, medical device engineer 4/5, deltoids 5/5, hip flexors 2/5, distal lower extremities 5/5. [id number] is pretty good bilaterally though he consistently misses the target coming in several inches below Psych: Normal affect and withdrawn behavior Results & Data Results & Data Vital Signs (Past 12 Hours) Vital Signs Temp Pulse Resp BP BP Pulse Ox O2 Del Method 06/05/23 07:11 36.4 C L 92 H 15 155/94 H 97 Room Air 11/02/23 04:11 36.3 C L 84 14 157/93 H 99 Room Air 06/04/23 22:02 Room Air 06/04/23 22:02 36.4 C L 82 16 147/88 H 94 Room Air Diagnostic Findings CT chest with contrast FINDINGS: Lungs: Small amount of scarring in the lung apices and lung bases. No acute appearing airspace infiltrate is seen. Pleural space: Unremarkable. No pneumothorax. No significant effusion. Heart: The heart is not enlarged. Severe coronary calcification is present. No pericardial effusion. Bones/joints: Moderate multilevel osteophytosis throughout the spine. No acute fracture or destructive bone lesion is seen. No dislocation. Soft tissues: Unremarkable. 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 There is no dissection. The pulmonary arterial tree is well opacified with contrast. No pulmonary embolism is identified. Lymph nodes: Unremarkable. No enlarged lymph nodes. IMPRESSION: 1. 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 There is no dissection. 2. The pulmonary arterial tree is well opacified with contrast. No pulmonary embolism is identified. 3. The heart is not enlarged. Severe coronary calcification is present. No pericardial effusion. CT abdomen/pelvis with contrast - unremarkable, fatty liver PG Care Time/CCT Total # of Minutes Spent Total Time Spent with Patient: Total time spent is greater than 50% in coordination of care (as documented) at patient's floor/unit and/or counseling patient: Coding Level of Care Code 03385 SUB INP/OBS CARE 3/50MIN Diagnoses Generalized weakness R53.1 Esophageal dysphagia R13.19 Dysphagia type: esophageal phase Hypomagnesemia E83.42 Hypokalemia E87.6 Severe protein-calorie malnutrition E43 Ptosis of eyelid, left H02.402 Macrocytic anemia D53.9 Positive blood culture R78.81 Folate deficiency E53.8 ASCVD (arteriosclerotic cardiovascular disease) I25.10 (2) Dysphagia Dysphagia type: esophageal phase Qualified Code(s): R13.19 - Other dysphagia
[2023-06-05 09:03] LABS: A calco-baum cmplx NotReported Not Detected (NotDetected); Bact fragilis Not Reported Not Detected (NotDetected); C auris Not Reported Not Detected (NotDetected); Calbicans Not Reported Not Detected (NotDetected); Candida glabrata Not Reported Not Detected (NotDetected); Candida krusei Not Reported Not Detected (NotDetected); Cneoformans/gatti Not Reported Not Detected (NotDetected); Cparapsilosis Not Reported Not Detected (NotDetected); E cloacae compx Not Reported Not Detected (NotDetected); Efaecalis Not Reported Not Detected (NotDetected); Efaecium Not Reported Not Detected (NotDetected); Enterobacterales Not Reported Not Detected (NotDetected); Escherichia coli Not Reported Not Detected (NotDetected); H influenzae Not Reported Not Detected (NotDetected); K aerogenes Not Reported Not Detected (NotDetected); Koxytoca Not Reported Not Detected (NotDetected); Kpneumoniae grp Not Reported Not Detected (NotDetected); Lmonocyt Not Reported Not Detected (NotDetected); N meningitidis Not Reported Not Detected (NotDetected); P aeruginosa Not Reported Not Detected (NotDetected); Proteus spp Not Reported Not Detected (NotDetected); Salmonella spp Not Reported Not Detected (NotDetected); Smarcescens Not Reported Not Detected (NotDetected); Staph lugdunensis Not Reported Not Detected (NotDetected); Staph spp. Not Reported DETECTED (NotDetected); Staphaureus Not Reported Not Detected (NotDetected); Staphepi Not Reported DETECTED (NotDetected); Staphylococcus spp. DETECTED (NotDetected); Stenmaltophilia Not Reported Not Detected (NotDetected); Strep agal(GrpB) Not Reported Not Detected (NotDetected); Strep pneum Not Reported Not Detected (NotDetected); Strep pyog (GrpA) Not Reported Not Detected (NotDetected); Strep spp Not Reported Not Detected (NotDetected)
[2023-06-05 09:09] LABS: Staphylococcus epidermidis DETECTED (NotDetected); mecAC Resistant Gene DETECTED (NotDetected)
--- NOTE | 2023-06-05 10:20 | Gastrointestinal Consultation ---
Date of Consultation June 05, 2023 Assessment & Plan (1) Dysphagia: Plan 82 year old male with weight loss, solids dysphagia x 1-2 months. Soft slippery diet as tolerated NPO after midnight EGD Friday PO PPI BID We appreciate assistance in the management of any serological abnormality and corrections to include: hemoglobin >7, INR <2, platelets >50,000, potassium levels >3.5 but <5.3, and sodium levels within 5 points of the reference range prior to endoscopic evaluation. Thank you for allowing us to participate in the care of this patient. Please call with any acute changes, questions or concerns. Please see addendum below with additional recommendation from my supervising physician. Supervising Physician Co-Signing Physician Notes I personally saw and evaluated the patient on 06/05/2023 with ZACH Reddy and agree with her findings and plan of care. Patient chronically ill appearing on exam. Notable L eye ptosis. Abdomen soft. 82 y/o admitted with weakness, weight loss, and progressive dysphagia. CT chest/abdomen/pelvis unremarkable other than CAD. Will plan for EGD tomorrow for further evaluation. NPO at midnight. Hold all anticoagulation if applicable. Jordyn Fung, DO Gastroenterology and Hepatology History of Present Illness Reason for Consultation: dysphagia Requesting Physician: Risa Attending Physician: Peggy Lord MD History of Present Illness 82 year old male admitted with progressive weakness, fatigue and dysphagia - GI asked to evaluate. Pt was seen and evaluated, chart reviewed. He notes for the last 1-2 month he has experienced solid food dysphagia. Notes that liquids/pills seem to go down okay but meat/breads get stuck. This occurs a few times a week. He feels that he can chew/transfer food well but feels sticking sensation at the end of his esophagus, pointing to his sternum. He denies GERD. No nausea, vomiting. No appetite changes but has had a 15/20 lb weight loss. Denies change in BM, no report of black or bloody stools. + weight loss + dysphagia WBC 4 H&H 10.6/30.7 PLT 233 INR 1 NEUROUROLOGIST 0.46 Normal LFTs Colon 2011: Preparation of the colon was fair. - Diverticulosis in the sigmoid colon. Colon 2009: The examined portion of the ileum was normal. - One 2 mm polyp in the cecum. Resected and retrieved. - One 2 mm polyp in the distal transverse colon. Resected and retrieved. - Two 2 to 3 mm polyps in the distal sigmoid colon. Resected and retrieved. - Three 1 to 2 mm polyps in the rectum (benign appearing). Resected and retrieved. - Severe diverticulosis sigmoid colon and descending colon. EGD 2009: Sheeba-Samuel tear with a visible vessel this was treated with epinephrine and cautery. - Normal examined duodenum. - No gastric and/or esophageal varices appreciated. - Hematin (altered blood/qjkirv-zjwezu-qfqb material) in the gastric body. Allergies Allergy/AdvReac Type Severity Reaction Status Date / Time shrimp Allergy Severe Hives and Unverified 06/04/23 18:16 GI Upset erythromycin base Allergy Unknown Unknown Unverified 06/04/23 18:16 Home Medications Medication Instructions Recorded Confirmed Type ibuprofen 200 mg tablet 400 mg PO Q6H PRN Pain 02/21/19 06/04/23 History esomeprazole magnesium 20 mg 20 mg PO DAILY 06/04/23 06/04/23 History capsule,delayed release (Nexium 24HR) fexofenadine 180 mg tablet 180 mg PO DAILY 06/04/23 06/04/23 History (Melissa Allergy) Patient History Medical History Dupuytren's contracture of hand Social History Smoking Status: Never smoker Hx Alcohol Use: Yes Hx Substance Use: No Preferred Language: Croatian Communication Ability: Effective Mechanical Drafter Required: No Beliefs That Will Affect Care: None Current Living Situation: Spouse Feels Safe at Home: Yes Safety Concerns: Feels Safe At This Time Assistive Devices: Cane and Walker Assistive Devices Comment: clutches to furniture Review of Systems Review of Systems: All systems reviewed & are unremarkable except as noted in HPI & below Physical Exam Constitutional: WD/WN, vitals as above Respiratory: normal respiratory effort, lungs clear to auscultation Cardiovascular: RRR, no murmur, no edema Skin: no rashes, warm and dry Results & Data Vital Signs (Past 12 Hours) Vital Signs Temp Pulse Resp BP Pulse Ox O2 Del Method 06/05/23 09:26 Room Air 06/05/23 07:11 36.4 C L 92 H 15 155/94 H 97 Room Air 06/05/23 04:11 36.3 C L 84 14 157/93 H 99 Room Air Laboratory Results 06/05/23 06/05/23 06/04/23 Range/Units 08:15 06:13 18:06 WBC 4.39 L (4.8-10.8) K/ul RBC 3.01 L (4.70-6.10) M/uL Hgb 10.6 L (14.0-18.0) g/dl Hct 30.7 L (42.0-52.0) % MCV 102.0 H (80.0-100.0) fL MCH 35.2 H (25.0-34.0) pg MCHC 34.5 (32.0-36.0) g/dL RDW Std Deviation 45.1 (36.4-46.3) fL RDW Coeff of Shayan 12.0 (11.5-14.5) % Plt Count 233 (130-400) K/uL MPV 10.2 (9.4-12.4) fL Immature Gran % (Auto) 1.6 % Neut % (Auto) 65.6 % Lymph % (Auto) 22.3 % Rich % (Auto) 8.9 % Eos % (Auto) 0.9 % Baso % (Auto) 0.7 % Neut # (Auto) 2.88 (1.40-6.50) K/uL Lymph # (Auto) 0.98 L (1.20-3.40) K/uL Rich # (Auto) 0.39 (0.11-0.59) K/uL Eos # (Auto) 0.04 (0.00-0.50) K/uL Baso # (Auto) 0.03 (0.00-0.20) K/uL Immature Gran # (Auto) 0.07 (0.01-0.20) K/uL PT (9.0-12.0) Seconds INR (0.9-1.1) APTT (21.0-31.0) Seconds PTT Ratio VBG pH (7.36-7.41) VBG pCO2 (38-50) mmHg VBG pO2 mmHg VBG HCO3 mmol/L VBG O2 Saturation % VBG Base Excess mEq/L Sodium 136 (136-145) mmol/L Potassium 3.6 (3.5-5.1) mmol/L Chloride 100 (98-107) mmol/L Carbon Dioxide 26 (21-32) mmol/L Anion Gap 10 (3-11) BUN 15 (6-23) mg/dl Creatinine 0.46 L (0.6-1.4) mg/dl Est Cr Clr Drug Dosing 91.9 Est GFR ( Amer) 121.0 ml/min Est GFR (Non-Af Amer) 104.4 ml/min BUN/Creatinine Ratio 32.6 H (10-20) Glucose 116 H (70-99(Fasting)) mg/dl Lactate 1.4 (0.4-2.0) mmol/L Calcium 8.6 (8.6-10.3) mg/dl Phosphorus 3.0 (2.5-4.9) mg/dl Magnesium 2.3 (1.7-2.4) mg/dl Total Bilirubin (0.2-1.0) mg/dl AST (13-39) U/L ALT (7-52) U/L Alkaline Phosphatase (34-104) U/L Troponin I High Sens (0-20) pg/ml C-Reactive Protein (0-0.5) mg/dl Total Protein (6.0-8.3) gm/dl Albumin (3.4-5.0) gm/dl Globulin (2.5-4.0) gm/dl Albumin/Globulin Ratio (0.9-2) Lipase 16 (11-82) U/L Whole Bld Vitamin B1 Pending Vitamin B12 384 (180-914) pg/ml Folate 3.72 L (>5.38) ng/ml Procalcitonin (0-0.5) ng/ml TSH (0.300-4.500) uIu/ml Cortisol AM Sample 15.21 (6.2-22.6) mcg/dl Adenovirus (PCR) (NotDetected) B. pertussis DNA (PCR) (NotDetected) B.parapertussis DNA PCR (NotDetected) C. pneumoniae DNA (PCR) (NotDetected) Coronavirus OC43 (PCR) (NotDetected) Coronavirus HKU1 (PCR) (NotDetected) Coronavirus 229E (PCR) (NotDetected) SARS-CoV-2 (PCR) (NotDetected) Coronavirus NL63 (PCR) (NotDetected) Human Metapneumovir PCR (NotDetected) Influenza Type A (PCR) (NotDetected) Influenza Type B (PCR) (NotDetected) M. pneumoniae (PCR) (NotDetected) Parainfluenza 1 (PCR) (NotDetected) Parainfluenza 2 (PCR) (NotDetected) Parainfluenza 3 (PCR) (NotDetected) Parainfluenza 4 (PCR) (NotDetected) RSV (PCR) (NotDetected) Entero/Rhino (PCR) (NotDetected) Staphylococcus sp PCR (NotDetected) mecA/C-Methicil Resis Gene (NotDetected) Staph epidermidis (PCR) (NotDetected) Bld Cult ID Panel PCR (NotDetected) 06/04/23 06/04/23 06/04/23 Range/Units 15:05 15:00 13:52 WBC 5.38 (4.8-10.8) K/ul RBC 3.12 L (4.70-6.10) M/uL Hgb 11.0 L (14.0-18.0) g/dl Hct 31.8 L (42.0-52.0) % MCV 101.9 H (80.0-100.0) fL MCH 35.3 H (25.0-34.0) pg MCHC 34.6 (32.0-36.0) g/dL RDW Std Deviation 44.4 (36.4-46.3) fL RDW Coeff of Shayan 11.9 (11.5-14.5) % Plt Count 327 (130-400) K/uL MPV 10.8 (9.4-12.4) fL Immature Gran % (Auto) 0.9 % Neut % (Auto) 64.1 % Lymph % (Auto) 25.8 % Rich % (Auto) 8.4 % Eos % (Auto) 0.4 % Baso % (Auto) 0.4 % Neut # (Auto) 3.45 (1.40-6.50) K/uL Lymph # (Auto) 1.39 (1.20-3.40) K/uL Rich # (Auto) 0.45 (0.11-0.59) K/uL Eos # (Auto) 0.02 (0.00-0.50) K/uL Baso # (Auto) 0.02 (0.00-0.20) K/uL Immature Gran # (Auto) 0.05 (0.01-0.20) K/uL PT 10.6 (9.0-12.0) Seconds INR 1.0 (0.9-1.1) APTT 23.9 (21.0-31.0) Seconds PTT Ratio 0.8 VBG pH 7.37 (7.36-7.41) VBG pCO2 42 (38-50) mmHg VBG pO2 29 mmHg VBG HCO3 24 mmol/L VBG O2 Saturation < 60.0 % VBG Base Excess -1.0 mEq/L Sodium 136 (136-145) mmol/L Potassium 3.1 L (3.5-5.1) mmol/L Chloride 97 L (98-107) mmol/L Carbon Dioxide 23 (21-32) mmol/L Anion Gap 16 H (3-11) BUN 18 (6-23) mg/dl Creatinine 0.58 L (0.6-1.4) mg/dl Est Cr Clr Drug Dosing Not Reportable Est GFR ( Amer) 110.0 ml/min Est GFR (Non-Af Amer) 94.9 ml/min BUN/Creatinine Ratio 31.0 H (10-20) Glucose 98 (70-99(Fasting)) mg/dl Lactate 2.5 H* (0.4-2.0) mmol/L Calcium 9.1 (8.6-10.3) mg/dl Phosphorus (2.5-4.9) mg/dl Magnesium 1.6 L (1.7-2.4) mg/dl Total Bilirubin 0.7 (0.2-1.0) mg/dl AST 36 (13-39) U/L ALT 14 (7-52) U/L Alkaline Phosphatase 62 (34-104) U/L Troponin I High Sens 7.1 (0-20) pg/ml C-Reactive Protein 4.13 H (0-0.5) mg/dl Total Protein 7.5 (6.0-8.3) gm/dl Albumin 3.2 L (3.4-5.0) gm/dl Globulin 4.3 H (2.5-4.0) gm/dl Albumin/Globulin Ratio 0.7 L (0.9-2) Lipase (11-82) U/L Whole Bld Vitamin B1 Vitamin B12 (180-914) pg/ml Folate (>5.38) ng/ml Procalcitonin < 0.05 (0-0.5) ng/ml TSH 2.309 (0.300-4.500) uIu/ml Cortisol AM Sample (6.2-22.6) mcg/dl Adenovirus (PCR) Not Detected (NotDetected) B. pertussis DNA (PCR) Not Detected (NotDetected) B.parapertussis DNA PCR Not Detected (NotDetected) C. pneumoniae DNA (PCR) Not Detected (NotDetected) Coronavirus OC43 (PCR) Not Detected (NotDetected) Coronavirus HKU1 (PCR) Not Detected (NotDetected) Coronavirus 229E (PCR) Not Detected (NotDetected) SARS-CoV-2 (PCR) Not Detected (NotDetected) Coronavirus NL63 (PCR) Not Detected (NotDetected) Human Metapneumovir PCR Not Detected (NotDetected) Influenza Type A (PCR) Not Detected (NotDetected) Influenza Type B (PCR) Not Detected (NotDetected) M. pneumoniae (PCR) Not Detected (NotDetected) Parainfluenza 1 (PCR) Not Detected (NotDetected) Parainfluenza 2 (PCR) Not Detected (NotDetected) Parainfluenza 3 (PCR) Not Detected (NotDetected) Parainfluenza 4 (PCR) Not Detected (NotDetected) RSV (PCR) Not Detected (NotDetected) Entero/Rhino (PCR) Not Detected (NotDetected) Staphylococcus sp PCR DETECTED A (NotDetected) mecA/C-Methicil Resis Gene DETECTED A (NotDetected) Staph epidermidis (PCR) DETECTED A (NotDetected) Bld Cult ID Panel PCR See PCR Comment (NotDetected) (1) Dysphagia Dysphagia type: esophageal phase Qualified Code(s): R13.19 - Other dysphagia
[2023-06-05] MEDS: POTASSIUM CHLORIDE 40 MEQ in D5W AND 1/2NSS 1,000 ML IV SCH (12:14)
[2023-06-05] MEDS ORDERED: VANCOMYCIN CONSULT ACTIVE PRN (13:35)
[2023-06-05] MEDS: PANTOprazole 40 MG in SYRINGE 0 ML IV SCH (13:41)
[2023-06-05] MEDS ORDERED: VANCOMYCIN HCL 1,250 MG in SODIUM CHLORIDE 0.9% 250 ML IV ONE (14:00)
--- NOTE | 2023-06-05 15:18 | Pharmacy Report ---
Pharmacy PK ABX Note - Date of Service June 05, 2023 - Assessment and Plan Assessment 82 year old M started on Vancomycin today for treatment of Bacteremia. Preliminary blood cultures and biofire indicate MRSE. Plan Vancomycin * Loading dose: 1250 mg IV x 1 * Maintenance dose: 1000 mg IV every 12 hours * Regimen is predicted to achieve target AUC/SIRENA of 400-600 mg/L.hr * Random level ordered for: 06/07/23 with AM labs Pharmacy will continue to follow and will adjust dose/frequency as necessary. Thank you. Pharmacy has transitioned to AUC monitoring for vancomycin. AUC/SIRENA is the preferred PK/PD target and is associated with decreased risk of nephrotoxicity compared to traditional trough targets.
--- NOTE | 2023-06-05 16:38 | Electrocardiogram Report ---
Test Reason : Blood Pressure : / mmHG Vent. Rate : 114 BPM Atrial Rate : 114 BPM P-R Int : 146 ms QRS Dur : 082 ms QT Int : 354 ms P-R-T Axes : 077 -34 104 degrees QTc Int : 487 ms Poor data quality, interpretation may be adversely affected Sinus tachycardia Left axis deviation Nonspecific ST and T wave abnormality Abnormal ECG When compared with ECG of 21-FEB-2019 08:51, Vent. rate has increased BY 51 BPM T wave inversion now evident in Lateral leads Confirmed by Dale Altamirano ([id number]) on 06/05/2023 4:37:56 PM Referred By: REFERRED SELF Confirmed By:Drew Altamirano
[2023-06-05] MEDS: CYANOCOBALAMIN (B-12) 500 MCG TABLET PO SCH (18:23)
[2023-06-05] MEDS: THIAMINE HCL 500 MG in SODIUM CHLORIDE 0.9% 50 ML IV SCH (20:40)
[2023-06-05] MEDS: VANCOMYCIN HCL 1,000 MG in SODIUM CHLORIDE 0.9% 250 ML IV SCH (22:02)
[2023-06-06 02:03] LABS: Appearance Urine Cloudy (Clear); Blood Urine Negative (Negative); Color Urine Dark Yellow; Glucose Urine UA Negative (Negative); Ketones Urine Trace (Negative); Leukocyte Esterase Urine 2+ (Negative); Nitrite Urine Negative (Negative); Protein Urine Trace (Negative); RBC Urine Automated 0-4 /hpf (0-4); Specific Gravity Urine 1.039 (1.000-1.030); Urobilinogen Urine Positive (Negative); WBC Urine Automated >30 /hpf (0-5)
[2023-06-06 02:09] LABS: Bilirubin Urine 1+ (Negative); Cast Urine Automated >30 /lpf (0-5)
[2023-06-06] MEDS: THIAMINE HCL 500 MG in SODIUM CHLORIDE 0.9% 50 ML IV SCH ×3 (02:10→18:23)
[2023-06-06 02:16] LABS: Bacteria Urine Automated 1+ (Negative); Renal Epithelial Cells Urine 0-5 /lpf (0-5)
[2023-06-06] MEDS: POTASSIUM CHLORIDE 40 MEQ in D5W AND 1/2NSS 1,000 ML IV SCH ×2 (05:43→18:34)
--- NOTE | 2023-06-06 09:15 | Communication Note ---
Date of Service: June 06, 2023 Pt was seen & evaluated, chart reviewed. Remains NPO for EGD. Please refer to consultation note yesterday for further recommendations/plans. We appreciate assistance in the management of any serological abnormality and corrections to include: hemoglobin >7, INR <2, platelets >50,000, potassium levels >3.5 but <5.3, and sodium levels within 5 points of the reference range prior to endoscopic evaluation. Thank you for allowing us to participate in the care of this patient. Please call with any acute changes, questions or concerns. Please see addendum below with additional recommendation from my supervising physician.
[2023-06-06] MEDS ORDERED: FOLIC ACID 1 MG in SYRINGE 9.8 ML IV ONE (09:50)
[2023-06-06] MEDS: PANTOprazole 40 MG in SYRINGE 0 ML IV SCH (10:07)
[2023-06-06 10:20] LABS: Creatinine Clr Calc Pharmacy 86.2 ml/min; Est GFR (African American) 117.9 ml/min; Est GFR (Non-African American) 101.8 ml/min
[2023-06-06] MEDS: VANCOMYCIN HCL 1,000 MG in SODIUM CHLORIDE 0.9% 250 ML IV SCH ×2 (11:35→22:37)
[2023-06-06] MEDS ORDERED: LIDOCAINE 2% 2 ML VIAL/AMP(20MG/ML) INFIL ONE (12:54)
[2023-06-06] MEDS ORDERED: PROPOFOL IV EMULSION 10 MG/ML 20 ML VIAL IV ONE (12:54)
--- NOTE | 2023-06-06 12:57 | Anesthesiology Consultation ---
Date of Service June 06, 2023 Assessment & Plan Chart Review Chart Review: Acceptable Risk for Surgery and Patient NOT seen in Pre Admission Testing Consults Requested none History Surgery Operation Date: 06/06/23 16:30 Proposed Procedures p Esophagogastroduodenoscopy Dr Troy Simmons, Height/Weight Height: 6 ft Weight: 52.45 kg Allergies Allergy/AdvReac Type Severity Reaction Status Date / Time shrimp Allergy Severe Hives and Unverified 06/04/23 18:16 GI Upset erythromycin base Allergy Unknown Unknown Unverified 06/04/23 18:16 Medications Home Medications Medication Instructions Recorded Confirmed Last Taken ibuprofen 200 mg tablet 400 mg PO Q6H PRN Pain 02/21/19 06/04/23 06/03/23 esomeprazole magnesium 20 mg 20 mg PO DAILY 06/04/23 06/04/23 06/03/23 capsule,delayed release (Nexium 24HR) fexofenadine 180 mg tablet 180 mg PO DAILY 06/04/23 06/04/23 06/03/23 (Melissa Allergy) Active Medications Generic Name Dose Route Start Last Admin Trade Name Freq PRN Reason Stop Dose Admin Cyanocobalamin 500 mcg 06/05/23 17:30 06/05/23 18:23 Cyanocobalamin (B-12) 500 Mcg Tablet PO 07/05/23 17:29 500 mcg QAM HENOK Administration Potassium Chloride 40 meq/ 1,020 mls @ 80 mls/hr 06/04/23 20:30 06/06/23 12:32 Dextrose/Sodium Chloride IV 07/04/23 20:29 0 mls/hr .[id number] HENOK Infusion Pantoprazole Sodium 40 mg/ 10 mls @ 5 mls/min 06/05/23 11:00 06/06/23 10:07 Syringe IV 07/05/23 10:59 5 mls/min DAILY@1100 HENOK Administration Vancomycin HCl 1,000 mg/ 270 mls @ 200 mls/hr 06/05/23 23:00 06/06/23 12:32 Sodium Chloride IV 06/19/23 22:59 0 mls/hr Q12H HENOK Infusion Thiamine HCl 500 mg/ Sodium 55 mls @ 210 mls/hr 06/05/23 17:30 06/06/23 10:31 Chloride IV 06/07/23 09:46 Infused Q8H HENOK Infusion NPO Date Last Intake of Fluids: 06/05/23 Time Last Intake of Fluids: 23:30 Date Last Intake of Solids: 06/05/23 Last Intake of Solids Comment: Dinner Past Medical History Medical History (Updated 06/05/23 @ 17:06 by Peggy Lord MD) Ptosis of eyelid, left Dupuytren's contracture of hand Social History Smoking Status: Never smoker Hx Alcohol Use: Yes alcohol intake frequency: 0-2 drinks per day Hx Substance Use: No Physical Exam Vital Signs Last Vital Signs Temp 36.7 C 06/06/23 08:07 Pulse 73 06/06/23 08:07 Resp 16 06/06/23 08:07 BP 153/90 H 06/06/23 08:07 Pulse Ox 97 06/06/23 08:07 O2 Del Method Room Air 06/06/23 10:12 Constitutional WD/WN, vitals as above well developed and + cachectic; + not well nourished and no acute distress ENMT Mouth: + dry oral mucous membranes Respiratory normal respiratory effort, lungs clear to auscultation Cardiovascular RRR, no murmur, no edema Gastrointestinal (Abdomen) Inspection/Auscultation: abdomen normal to inspection and + hypoactive bowel sounds; abdomen not distended Percussion/Palpation: abdomen soft; abdomen nontender, no guarding and abdomen not rigid Skin no rashes, warm and dry Neurologic moves all extremities and awake; not confused Psychiatric A+Ox3, euthymic affect Genitourinary no CVA tenderness Testing Laboratory Results 06/05/23 06:13 06/06/23 09:42 PT 10.6 Seconds (9.0-12.0) 06/04/23 13:52 INR 1.0 (0.9-1.1) 06/04/23 13:52 APTT 23.9 Seconds (21.0-31.0) 06/04/23 13:52 Urine Color Dark Yellow 06/06/23 Unknown Urine Appearance Cloudy (Clear) A 06/06/23 Unknown Urine pH 6.0 (4.5-7.5) 06/06/23 Unknown Ur Specific [place] 1.039 (1.000-1.030) H 06/06/23 Unknown Urine Protein Trace (Negative) H 06/06/23 Unknown Urine Glucose (UA) Negative (Negative) 06/06/23 Unknown Urine Ketones Trace (Negative) H 06/06/23 Unknown Urine Nitrite Negative (Negative) 06/06/23 Unknown Ur Leukocyte Esterase 2+ (Negative) H 06/06/23 Unknown Urine WBC (Auto) >30 /hpf (0-5) H 06/06/23 Unknown Urine RBC (Auto) 0-4 /hpf (0-4) 06/06/23 Unknown U Hyaline Cast (Auto) >30 /lpf (0-5) H 06/06/23 Unknown U Epithel Cells (Auto) 5-10 /lpf (0-5) H 06/06/23 Unknown Urine Bacteria (Auto) 1+ (Negative) H 06/06/23 Unknown 06/04/23 15:00 Aerobic Blood Culture - Preliminary Blood Gram positive cocci clusters Anaerobic Blood Culture - Final 06/04/23 15:05 Aerobic Blood Culture - Preliminary Blood Gram positive cocci clusters Anaerobic Blood Culture - Preliminary Gram positive cocci clusters
--- NOTE | 2023-06-06 13:08 | History & Physical Bridge Note ---
Date of Service June 06, 2023 History & Physical Bridge Note I have examined the patient, reviewed the History & Physical and in the interval since the performance of the History & Physical I have noted the following changes of clinical significance: no changes noted. I saw and evaluated the patient. We are planning to do upper endoscopy today for further evaluation of his difficulty with swallowing. We have discussed the risks to include bleeding, infection, perforation, pain, aspiration and the need for follow-up studies
[2023-06-06] MEDS ORDERED: INFLUENZA VACCINE HIGH-DOSE (HD-IIV4) PF 65+ 0.7mL SYR IM ONE (14:00)
--- NOTE | 2023-06-06 14:17 | Communication Note ---
Date of Service: June 06, 2023 The patient underwent an upper endoscopy today. He was found to have evidence of a Schatzki's ring, in addition to diffuse gastritis. We were able to perform a dilation to 51 Turkmen today. Recommendations Mechanical soft diet Omeprazole or Protonix 40 mg/day for 6 weeks then 20 mg daily thereafter Repeat upper endoscopy as needed Please call with any questions or concerns GI to sign off
--- NOTE | 2023-06-06 14:24 | GI REPORT ---
Patient Name: Ahmet Alvarez Procedure Date: 06/06/2023 1:13 PM Date of : 1940 Admit Type: Inpatient Age: 82 Gender: Male Attending MD: Marlen Simmons DO, Procedure: Upper GI endoscopy Providers: Marlen Simmons DO Referring MD: Sea Roberts, Peggy Lord Md Indications: Dysphagia, Weight loss Medicines: General Anesthesia Complications: No immediate complications. Estimated blood loss: Minimal. Estimated Blood Loss: Estimated blood loss was minimal. Procedure: Pre-Anesthesia Assessment: - Prior to the procedure, a History and Physical was performed, and patient medications, allergies and sensitivities were reviewed. The patient's tolerance of previous anesthesia was reviewed. - The risks and benefits of the procedure and the sedation options and risks were discussed with the patient. All questions were answered and informed consent was obtained. - Patient identification and proposed procedure were verified prior to the procedure by the physician, the nurse and the welding process engineer. The procedure was verified in the procedure room. - Pre-procedure physical examination revealed no contraindications to sedation. - ASA Grade Assessment: III - A patient with severe systemic disease. - After reviewing the risks and benefits, the patient was deemed in satisfactory condition to undergo the procedure. - The anesthesia plan was to use general anesthesia. - Immediately prior to administration of medications, the patient was re-assessed for adequacy to receive sedatives. - The heart rate, respiratory rate, oxygen saturations, blood pressure, adequacy of pulmonary ventilation, and response to care were monitored throughout the procedure. - The physical status of the patient was re-assessed after the procedure. After obtaining informed consent, the endoscope was passed under direct vision. Throughout the procedure, the patient's blood pressure, pulse, and oxygen saturations were monitored continuously. The Scope was introduced through the mouth, and advanced to the third part of duodenum. The upper GI endoscopy was accomplished without difficulty. The patient tolerated the procedure well. Findings: A mild Schatzki ring was found at the gastroesophageal junction. A guidewire was placed and the scope was withdrawn. Dilation was performed with a Savary dilator with no resistance at 48 Fr and 51 Fr. The dilation site was examined following endoscope reinsertion and showed mild mucosal disruption. Diffuse moderate inflammation characterized by congestion (edema), erythema and granularity was found in the entire examined stomach. Biopsies were taken with a cold forceps for histology. The pathology specimen was placed into Bottle Number 2. Estimated blood loss was minimal. The examined duodenum was normal. Biopsies were taken with a cold forceps for histology. The pathology specimen was placed into Bottle Number 1. Estimated blood loss was minimal. Impression: - Mild Schatzki ring. Dilated to 51 Fr. - Gastritis. Biopsied. - Normal examined duodenum. Biopsied. Recommendation: - Return patient to hospital [facility] for ongoing care. - Use Prilosec (omeprazole) 40 mg PO daily for 8 weeks then reduce to 20 mg per day. - Repeat upper endoscopy PRN for retreatment. Marlen Simmons D.O. Marlen Simmons, DO 06/06/2023 2:23:44 PM This report has been signed electronically. Note Initiated On: 06/06/2023 1:13 PM Number of Addenda: 0 I attest to the content of the Intraoperative Record and orders documented therein, exceptions below {[id number]}
--- NOTE | 2023-06-06 14:35 | Anesthesiology Progress Note ---
Date of Service June 06, 2023 Anesthesia Post Procedure Vital Signs Vital Signs: Temp Pulse Pulse Resp BP Pulse Ox O2 Del Method 06/06/23 14:32 95 H 14 87/67 L 100 Room Air 06/06/23 14:17 36 C L 89 14 97/65 L 100 Room Air 06/06/23 12:58 36.5 C 77 16 169/102 H 98 Room Air 06/06/23 10:12 Room Air 06/06/23 08:07 36.7 C 73 16 153/90 H 97 Room Air 06/05/23 23:00 36.4 C L 86 18 131/84 97 Room Air 06/05/23 19:25 Room Air 06/05/23 14:40 36.6 C 88 16 111/80 95 Room Air Transfer of Care Handoff Completed per policy Notes Mental Status: alert / awake / arousable Patient Amnestic to Procedure: Yes Nausea / Vomiting: adequately controlled Pain: adequately controlled Airway Patency, RR, SpO2: stable & adequate BP & HR: stable & adequate Hydration State: stable & adequate Anesthetic Complications: no major complications apparent
[2023-06-06] MEDS: CYANOCOBALAMIN (B-12) 500 MCG TABLET PO SCH (15:34)
--- NOTE | 2023-06-06 17:47 | Hospitalist Progress Note ---
Date of Service June 06, 2023 Assessment & Plan (1) Generalized weakness: Plan: Severe generalized weakness, solid food dysphagia, significant unintentional weight loss, electrolyte disturbances likely nutritional, elevated inflammatory markers (CRP >4) -possibly all related to malnutrition with chronically low oral intake due to dysphagia -CT C/A/P with contrast was unrevealing -EGD 06/06 with "mild" schatzki's ring which was dilated, gastritis, biopsied - P Nutrition consulted B1 - P treat empirically with IV thiamine 500 x 6 doses then 250 x 5 days, B12 = 384 start oral supplement PT/OT assessments - recommended rehab - [facility] or SN[facility] Electrolyte disturbances due to low intake phos = normal 3.0, repleted mag = 2.3 and K - 3.6. Likely to need additional potassium repletion - currently has K in IVF, AM BMP -monitor for refeeding syndrome (2) Positive blood culture: Plan: staph epi in 3/4 bottles drawn in ED -contaminant vs bacteremia -repeat blood cultures drawn 06/05 - pending -continue IV vancomycin. Cr unchanged today, normal -TTE (3) Dysphagia: Plan: Consulted GI - EGD 06/[address] C/A/P with IV contrast 06/04 reviewed - no findings to explain clinical picture -high dose PPI for 6 weeks then daily PPI thereafter -follow up gastric biopsies -if dysphagia persists will get functional study - esophagram (4) Hypomagnesemia: Plan: from poor nutrition replaced IV, recheck in AM (5) Hypokalemia: Plan: from poor nutrition stop IV replacement, repeat with AM labs (6) Severe protein-calorie malnutrition: Plan: -nutrition consulted -monitor intake post EGD/dilation -monitor for refeeding syndrome (7) Ptosis of eyelid, 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 follow up culture Hypertension? monitor BP - VERY labile so far Hypothermia - check TSH = normal 2.309, and cortisol = 15 Anemia, leukopenia / lymphopenia Elevated anion gap metabolic acidosis, mild lactate elevation - volume depletion, resolved with IVF VTE Prophylaxis - start enoxaparin Diet - mechanical soft recommended by GI Disposition - PT/OT eval rec acute rehab or SNF - discussed with career services representative Admission and Anticipated Discharge Date Admission Date: June 04, 2023 Subjective seen x 2 before and after EGD. Family in room in pm - and sister. He was confused in the morning was not oriented to why he was in the hospital. In afternoon a little clearer, denied CP, throat is sore, did not feel hungry, said boost gave him diarrhea in past, wants to go home right now Physical Exam Physical Exam: PHYSICAL EXAMINATION Last 24h vital signs reviewed, see documentation in flowsheet Exam unchanged 06/06 General: cachectic and frail appearing gentleman wrapped in blankets reclining in bed HEENT: Normocephalic, atraumatic, pupils round and equal, sclerae anicteric, no conjunctival injection, Left eyelid ptosis although he can completely open the eyelid with effort, dry mucus membranes, angular cheilitis, bitemporal wasting Lungs: Normal respiratory effort. Clear to auscultation bilaterally. No RRW Heart: Regular rate and rhythm, no murmurs. No JVD Abdomen: Soft, nontender, nondistended. Bowel sounds present. Extremities: Warm, dry, well-perfused. No extremity edema. sarcopenia Neuro: Alert and oriented x 4, face symmetric, speech intact, forgetful/confused and poor insight/judgment, L eye ptosis unchanged Psych: Normal affect and withdrawn behavior Results & Data Results & Data Vital Signs (Past 12 Hours) Vital Signs Temp Pulse Pulse Resp BP Pulse Ox O2 Del Method 06/06/23 15:16 36.4 C L 89 16 166/90 H 98 Room Air 06/06/23 14:47 96 H 14 150/101 H 88 L Room Air 06/06/23 14:32 95 H 14 87/67 L 100 Room Air 06/06/23 14:17 36 C L 89 14 97/65 L 100 Room Air 06/06/23 12:58 36.5 C 77 16 169/102 H 98 Room Air 06/06/23 10:12 Room Air 06/06/23 08:07 36.7 C 73 16 153/90 H 97 Room Air PG Care Time/CCT Total # of Minutes Spent Total Time Spent with Patient: 55 minutes spent on clinical care today - 2 visits Coding Level of Care Code 85418 SUB INP/OBS CARE 3/50MIN Diagnoses Generalized weakness R53.1 Positive blood culture R78.81 Esophageal dysphagia R13.19 Dysphagia type: esophageal phase Hypomagnesemia E83.42 Hypokalemia E87.6 Severe protein-calorie malnutrition E43 Ptosis of eyelid, left H02.402 Macrocytic anemia D53.9 Folate deficiency E53.8 ASCVD (arteriosclerotic cardiovascular disease) I25.10 (3) Dysphagia Dysphagia type: esophageal phase Qualified Code(s): R13.19 - Other dysphagia
[2023-06-06] MEDS: ENOXAPARIN INJ 40 MG/0.4 ML SYR SQ SCH (19:53)
--- NOTE | 2023-06-06 20:21 | XCELERA ---
[id number]
[2023-06-07] MEDS: THIAMINE HCL 500 MG in SODIUM CHLORIDE 0.9% 50 ML IV SCH ×2 (01:50→10:14)
[2023-06-07 07:36] LABS: BUN Creatinine Ratio 9.8 (10-20); Calcium 8.4 mg/dl (8.6-10.3); Creatinine Clr Calc Pharmacy 69.3 ml/min; Est GFR (African American) 107.8 ml/min; Magnesium 1.6 mg/dl (1.7-2.4); Phosphorus 2.8 mg/dl (2.5-4.9); Potassium 3.7 mmol/L (3.5-5.1)
--- NOTE | 2023-06-07 09:30 | Pharmacy Report ---
Pharmacy PK ABX Note - Date of Service June 07, 2023 - Assessment and Plan Assessment 82 year old M started on Vancomycin today for treatment of Bacteremia. 06/04 BCx (+) MRSE in 3. Repeat cultures negative to date. Renal function stable. Day #3 vancomycin Plan Vancomycin * Current regimen: 1gm IV q12h * Random level this AM (~8hr level), 20.6mcg/mL. Predicted to achieve ssAUC 730mg/L.hr which is supra-therapeutic. * Decrease maintenance dose: 750 mg IV every 12 hours * Regimen is predicted to achieve target AUC/SIRENA of 400-600 mg/L.hr * Repeat level at steady state of new regimen. Pharmacy will continue to follow and will adjust dose/frequency as necessary. Thank you. Pharmacy has transitioned to AUC monitoring for vancomycin. AUC/SIRENA is the preferred PK/PD target and is associated with decreased risk of nephrotoxicity compared to traditional trough targets.
[2023-06-07] MEDS ORDERED: VANCOMYCIN LEVEL ONE ×2 (10:00→11:00)
[2023-06-07] MEDS: FOLIC ACID 1 MG TAB PO SCH (10:11)
[2023-06-07] MEDS: CYANOCOBALAMIN (B-12) 500 MCG TABLET PO SCH (10:11)
[2023-06-07] MEDS: PANTOprazole 40 MG TAB PO SCH (10:13)
[2023-06-07] MEDS: VANCOMYCIN HCL 750 MG in SODIUM CHLORIDE 0.9% 250 ML IV SCH ×2 (11:21→22:37)
[2023-06-07] MEDS: MAGNESIUM SULFATE / D5W 1 GM/100 ML BAG IV SCH ×2 (14:21→16:22)
--- NOTE | 2023-06-07 16:12 | Hospitalist Progress Note ---
Date of Service June 07, 2023 Assessment & Plan (1) Generalized weakness: Plan: Severe generalized weakness, solid food dysphagia, significant unintentional weight loss, electrolyte disturbances likely nutritional, elevated inflammatory markers (CRP >4) -possibly all related to malnutrition with chronically low oral intake due to dysphagia -CT C/A/P with contrast was unrevealing -EGD 06/06 with "mild" schatzki's ring which was dilated, gastritis, biopsied - P Nutrition consulted B1 - P treat empirically with IV thiamine 500 x 6 doses then 250 x 5 days, B12 = 384 low normal, started oral supplement PT/OT assessments - recommended rehab - [facility] or [facility] Electrolyte disturbances due to low intake phos = normal 3.0, repleted mag = 2.3 and K - 3.6. Likely to need additional potassium repletion - currently has K in IVF, AM BMP -monitor for refeeding syndrome -hypomagnesemia 06/07 - ordered 2g IV mag (2) Positive blood culture: Plan: staph epi in 3 bottles drawn in ED -contaminant vs bacteremia -repeat blood cultures drawn 06/05 - pending NGTD -continue IV vancomycin. Cr unchanged today, normal -TTE notable for normal EF, thickening and calcification present on anterior leaflet of MV and aortic valve, cannot r/o vegetation however similar findings present on 2019 Echo UA was ordered in the night - abnormal - pinpoint growth on culture, denied dysuria -given global weakness and decreased mental status will treat with ceftriaxone pending culture results -CTX 1 g daily starting 06/07 (3) Dysphagia: Plan: Consulted GI - EGD 06/[address] C/A/P with IV contrast 06/04 reviewed - no findings to explain clinical picture -high dose PPI for 6 weeks then daily PPI thereafter -follow up gastric biopsies -starting to eat, dysphagia improved or resolved post procedure -if dysphagia persists will get functional study - esophagram (4) Hypomagnesemia: Plan: from poor nutrition replaced IV 2g 06/07, recheck in AM (5) Hypokalemia: Plan: from poor nutrition, replaced IV normal K 06/07 (6) Severe protein-calorie malnutrition: Plan: -nutrition consulted -monitor intake post EGD/dilation -monitor for refeeding syndrome (7) Ptosis of eyelid, 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 monitor BP - VERY labile initially, normotensive and normothermic 06/07 Hypothermia - check TSH = normal 2.309, and cortisol = 15 Anemia, leukopenia / lymphopenia Elevated anion gap metabolic acidosis, mild lactate elevation - volume depletion, resolved with IVF VTE Prophylaxis - enoxaparin Diet - mechanical soft recommended by GI Disposition - PT/OT eval rec acute rehab or SNF - discussed with wound care center consultant Admission and Anticipated Discharge Date Admission Date: June 04, 2023 Subjective mental status seems to be improved. family not in room. has lunch tray, has eaten little says its too salty. says he ate a few eggs, not having trouble sw allowing, throat pain resolved Physical Exam Physical Exam: PHYSICAL EXAMINATION Last 24h vital signs reviewed, see documentation in flowsheet Exam unchanged 06/07 except mentation seems improved General: cachectic and frail appearing gentleman looks brighter HEENT: Normocephalic, atraumatic, pupils round and equal, sclerae anicteric, no conjunctival injection, Left eyelid ptosis although he can completely open the eyelid with effort, moist mucus membranes, angular cheilitis, bitemporal wasting Lungs: Normal respiratory effort. Clear to auscultation bilaterally. No RRW Heart: Regular rate and rhythm, no murmurs. No JVD Abdomen: Soft, nontender, nondistended. Bowel sounds present. Extremities: Warm, dry, well-perfused. No extremity edema. sarcopenia Neuro: Alert and oriented x self and hospital, comments more appropriate, face symmetric, speech intact, forgetful/confused and poor insight/judgment, L eye ptosis unchanged Psych: Normal affect and withdrawn behavior Results & Data Results & Data Vital Signs (Past 12 Hours) Vital Signs Temp Pulse Resp BP Pulse Ox O2 Del Method 06/07/23 15:30 36.8 C 84 16 127/76 99 Room Air 06/07/23 08:07 36.5 C 87 18 138/83 99 Room Air PG Care Time/CCT Total # of Minutes Spent Total Time Spent with Patient: 52 minutes on clinical care 06/07 Coding Level of Care Code 37498 SUB INP/OBS CARE /50MIN Diagnoses Generalized weakness R53.1 Positive blood culture R78.81 Esophageal dysphagia R13.19 Dysphagia type: esophageal phase Hypomagnesemia E83.42 Hypokalemia E87.6 Severe protein-calorie malnutrition E43 Ptosis of eyelid, left H02.402 Macrocytic anemia D53.9 Folate deficiency E53.8 ASCVD (arteriosclerotic cardiovascular disease) I25.10 (3) Dysphagia Dysphagia type: esophageal phase Qualified Code(s): R13.19 - Other dysphagia
[2023-06-07] MEDS ORDERED: cefTRIAXone SODIUM 1,000 MG in DEXTROSE 5 % MINI-B 50 ML IV SCH (16:15)
[2023-06-07] MEDS: ENOXAPARIN INJ 40 MG/0.4 ML SYR SQ SCH (21:01)
[2023-06-08 07:00] LABS: BUN Creatinine Ratio 8.2 (10-20); Calcium 8.4 mg/dl (8.6-10.3); Creatinine Clr Calc Pharmacy 69.3 ml/min; Est GFR (African American) 107.8 ml/min; Magnesium 1.9 mg/dl (1.7-2.4); Phosphorus 3.3 mg/dl (2.5-4.9); Potassium 3.5 mmol/L (3.5-5.1)
[2023-06-08] MEDS ORDERED: THIAMINE HCL 200 MG in SODIUM CHLORIDE 0.9% 50 ML IV SCH (09:00)
[2023-06-08] MEDS: FOLIC ACID 1 MG TAB PO SCH (09:42)
[2023-06-08] MEDS: CYANOCOBALAMIN (B-12) 500 MCG TABLET PO SCH (09:42)
[2023-06-08] MEDS: PANTOprazole 40 MG TAB PO SCH (09:42)
[2023-06-08] MEDS: VANCOMYCIN HCL 750 MG in SODIUM CHLORIDE 0.9% 250 ML IV SCH ×2 (10:35→23:06)
[2023-06-08] MEDS: THIAMINE HCL 500 MG in SODIUM CHLORIDE 0.9% 50 ML IV SCH ×2 (13:28→21:38)
--- NOTE | 2023-06-08 16:03 | Hospitalist Progress Note ---
Date of Service June 08, 2023 Assessment & Plan (1) Generalized weakness: Plan: Severe generalized weakness, solid food dysphagia, significant unintentional weight loss, electrolyte disturbances likely nutritional, elevated inflammatory markers (CRP >4) -seems to be all related to malnutrition with chronically low oral intake due to dysphagia -CT C/A/P with contrast was unrevealing -EGD 06/06 with "mild" schatzki's ring which was dilated, gastritis, biopsied - P Nutrition consulted -intake much improved, GI recommended mechanical soft diet Suspect thiamine deficiency / [place] encephalopathy B1 - P treat empirically with IV thiamine 500 x 9 doses then 100 mg po indefinitely, B12 = 384 low normal, started oral supplement -mentation clearly improved PT/OT assessments - recommended rehab - [facility] or [facility] Electrolyte disturbances due to low intake phos = normal 3.0, repleted mag = 2.3 and K - 3.6. Likely to need additional potassium repletion - currently has K in IVF, AM BMP -monitor for refeeding syndrome -hypomagnesemia 06/07 - ordered 2g IV mag - mag normal today (2) Positive blood culture: Plan: staph epi in 3/4 bottles drawn in ED. This is one species in 2 of the sets and another species in 1 set. Very suspicious for skin contaminant -repeat blood cultures drawn 06/05 - pending NGTD -continue IV vancomycin. Cr unchanged 06/08, normal -TTE notable for normal EF, thickening and calcification present on anterior leaflet of MV and aortic valve, cannot r/o vegetation however similar findings present on 2019 Echo -stop vancomycin tomorrow if follow up cultures still negative -discussed with his UA was ordered in the night - abnormal - ordered CTX last night but culture grew skin irina. Stopped abx. UTI ruled out. (3) Dysphagia: Plan: Consulted GI - EGD 06/[address] C/A/P with IV contrast 06/04 reviewed - no findings to explain clinical picture -high dose PPI for 6 weeks then daily PPI thereafter -follow up gastric biopsies -starting to eat, dysphagia improved or resolved post procedure -if dysphagia persists will get functional study - esophagram -warned his that if dysphagia recurs in future could need repeat EGD with dilation (4) Hypomagnesemia: Plan: from poor nutrition replaced IV 2g 06/07, normal (5) Hypokalemia: Plan: from poor nutrition, replaced IV normal K 06/07, 06/08 (6) Severe protein-calorie malnutrition: Plan: -nutrition consulted -monitor intake post EGD/dilation -monitor for refeeding syndrome -AM BMP, mag (7) Ptosis of eyelid, 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 (years) he sees specialists in [place] and has multiple eyelid surgeries, last a year ago -improved with vitamins and increased nutrition (8) Macrocytic anemia: Plan: folate deficiency - replaced with 1 mg IV then daily 1 mg po (9) Folate deficiency: (10) ASCVD (arteriosclerotic cardiovascular disease): Plan: ASCVD - Severe coronary calcification, aortic ectasia 4 cm noted on chest CT -address risk factor reduction -lipid panel once eating normally (will not be useful now due to impaired cholesterol synthesis r/t malnutrition) -consider ASA 81 mg once severe gastritis has had a chance to heal -bp labile in hospital but on the balance normotensive Plan Hypertension? monitor BP - VERY labile initially, normotensive and normothermic 06/07- Hypothermia - check TSH = normal 2.309, and cortisol = 15 Anemia, leukopenia / lymphopenia - CBC in 4 weeks Elevated anion gap metabolic acidosis, mild lactate elevation - volume depletion, resolved with IVF VTE Prophylaxis - enoxaparin Diet - mechanical soft recommended by GI Disposition - PT/OT eval rec acute rehab [facility] tomorrow Admission and Anticipated Discharge Date Admission Date: June 04, 2023 Subjective visiting in room. he is more conversational, brighter, more oriented left eyelid much less droopy - she says it fatigues his reports he's eating well. he denies dysphagia, odynophagia leg strength is better [facility] Physical Exam Physical Exam: PHYSICAL EXAMINATION Last 24h vital signs reviewed, see documentation in flowsheet General: cachectic and frail appearing gentleman much more engaged HEENT: Normocephalic, atraumatic, pupils round and equal, sclerae anicteric, no conjunctival injection, Left eyelid ptosis much improved - nearly completely open moist M membranes, angular cheilitis, bitemporal wasting Lungs: Normal respiratory effort. Clear to auscultation bilaterally. No RRW Heart: Regular rate and rhythm, no murmurs. No JVD Abdomen: Soft, nontender, nondistended. Bowel sounds present. Extremities: Warm, dry, well-perfused. No extremity edema. sarcopenia Neuro: Alert and oriented x self and hospital, comments more appropriate, face symmetric, speech intact, short term memory seems better, L eye ptosis improved. LE strength improved - now can liift both heels 3 in off bed, previously not at all Psych: Normal affect and behavior, less withdrawn Results & Data Results & Data Vital Signs (Past 12 Hours) Vital Signs Temp Pulse Resp BP Pulse Ox O2 Del Method 06/08/23 15:51 36.8 C 96 H 16 122/83 96 Room Air 06/08/23 08:22 36.5 C 80 16 169/97 H 96 Room Air PG Care Time/CCT Total # of Minutes Spent Total Time Spent with Patient: Total time spent is greater than 50% in coordination of care (as documented) at patient's floor/unit and/or counseling patient: Coding Level of Care Code 99598 SUB INP/OBS CARE 2/35MIN Diagnoses Generalized weakness R53.1 Positive blood culture R78.81 Esophageal dysphagia R13.19 Dysphagia type: esophageal phase Hypomagnesemia E83.42 Hypokalemia E87.6 Severe protein-calorie malnutrition E43 Ptosis of eyelid, left H02.402 Macrocytic anemia D53.9 Folate deficiency E53.8 ASCVD (arteriosclerotic cardiovascular disease) I25.10 (3) Dysphagia Dysphagia type: esophageal phase Qualified Code(s): R13.19 - Other dysphagia
[2023-06-08] MEDS: ENOXAPARIN INJ 40 MG/0.4 ML SYR SQ SCH (21:38)
[2023-06-09] MEDS: THIAMINE HCL 500 MG in SODIUM CHLORIDE 0.9% 50 ML IV SCH (05:31)
[2023-06-09 07:17] LABS: BUN Creatinine Ratio 7.9 (10-20); Calcium 8.2 mg/dl (8.6-10.3); Creatinine Clr Calc Pharmacy 55.6 ml/min; Est GFR (African American) 98.5 ml/min; Magnesium 1.8 mg/dl (1.7-2.4); Phosphorus 3.6 mg/dl (2.5-4.9); Potassium 3.6 mmol/L (3.5-5.1)
[2023-06-09] MEDS: FOLIC ACID 1 MG TAB PO SCH (08:42)
[2023-06-09] MEDS: PANTOprazole 40 MG TAB PO SCH (08:42)
[2023-06-09] MEDS: CYANOCOBALAMIN (B-12) 500 MCG TABLET PO SCH (08:42)
--- NOTE | 2023-06-09 17:32 | Discharge Summary ---
Date of Service June 09, 2023 Admission HPI Per Admitting Provider Ahmet Alvarez is an 82 year old male who presents to the ER due to generalized weakness, dysphagia, ptosis and cough. He reports 2 months of progressive worsening symptoms. He was going to go to his outpatient physician 2 weeks ago but the family were having car troubles and unable to take him. His bilateral weakness was so bad this morning that he asked his to call for an ambulance to take him to hospital. He reports significant weight loss over the same time period and review of chart weight reports 10 kg weight loss since December. He has been eating and drinking less with less bowel movements. Having less of an appetite but also thicker foods such as [place] islander fries have been getting progressively stuck, no current problems with liquids. No change in speech or vision although he has had progressive problems with left eye ptosis over the same period of time. Weakness is bilateral. No change in sensation. No chest pain or abdominal pain. No urinary symptoms. No fever or chills. No odynophagia. 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 Clear to auscultation bilaterally. No RRW Heart: Regular rate and rhythm, no murmurs. No JVD Abdomen: Soft, nontender, nondistended. Bowel sounds present. Extremities: Warm, dry, well-perfused. No extremity edema. sarcopenia Neuro: Alert and oriented x self and hospital, comments more appropriate, face symmetric, speech intact, short term memory better, L eye ptosis improved. LE strength improved - now can lift both heels 3 in off bed - 06/08 and 06/09, previously not at all Psych: Normal affect and behavior, less withdrawn Discharge Data Allergies Allergy/AdvReac Type Severity Reaction Status Date / Time shrimp Allergy Severe Hives and Unverified 06/04/23 18:16 GI Upset erythromycin base Allergy Unknown Unknown Unverified 06/04/23 18:16 Consultations 06/04/23 17:30 ED Decision to Admit Stat 06/04/23 20:46 Consult Gastroenterology Routine Procedures Performed Operation Date: 06/06/23 16:30 Actual Procedures p EGD Biopsy Dilatation - Marlen Simmons DO Mild Schatzki's ring successfully dilated, significant gastritis biopsied Ordered Studies 06/04/23 18:01 CT Abd and Pelvis [CT abd pelvis IV con only] Stat CT chest diagnostic w con Stat Chest X-Ray 06/04/23 13:47 SINGLE VIEW CHEST CLINICAL HISTORY: Generalized weakness. FINDINGS: 2 AP, portable, upright chest radiographs are compared to chest x-ray and chest CT dated 02/21/2019. The cardiomediastinal silhouette is unremarkable. Chronic interstitial thickening is similar to previous. The lungs and pleural spaces are clear. No pneumothorax is seen. The skeletal structures are osteopenic. The bony thorax is grossly intact. IMPRESSION: No active disease in the chest. ACT 112: Negative or not required by law. Electronically signed by: Vladislav Wang M.D. 06/04/2023 2:34 PM Abdomen/Pelvis CT 06/04/23 18:01 Exam(s): CT ABDOMEN + PELVIS With Contrast IV Amt: 90 ml optiray 320 EXAM: CT Abdomen and Pelvis With Intravenous Contrast CLINICAL HISTORY: Reason for exam: cachetic, change bowel habit, dysphagia? malignancy. TECHNIQUE: Axial computed tomography images of the abdomen and pelvis with intravenous contrast. CTDI is 15.49 mGy and DLP is 1186.72 mGy-cm. Automated exposure control was utilized for the study. A dose lowering technique was utilized adhering to the principles of ALARA. CONTRAST: Patient received 90 ml optiray 320 of IV contrast COMPARISON: No relevant prior studies available. FINDINGS: Lung bases: Unremarkable. No mass. No consolidation. 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 Slight fatty infiltration of the liver, increased since previous. Gallbladder and bile ducts: Unremarkable. No calcified stones. No ductal dilation. Pancreas: Unremarkable. No mass. No ductal dilation. Spleen: Unremarkable. No splenomegaly. Adrenals: Unremarkable. No mass. Kidneys and ureters: Unremarkable. No solid mass. No hydronephrosis. Stomach and bowel: Bowel loops are nondilated. No acute inflammatory changes are seen involving the bowel. No mucosal thickening. PELVIS: Appendix: No findings to suggest acute appendicitis. Bladder: Unremarkable. No mass. Reproductive: Unremarkable as visualized. ABDOMEN and PELVIS: Intraperitoneal space: Unremarkable. No free air. No significant fluid collection. Bones/joints: Moderate to severe multilevel degenerative changes are seen throughout the spine. No acute fracture or subluxation is seen. Soft tissues: Unremarkable. Vasculature: The abdominal aorta is mildly calcified but nondilated. There is no aneurysm or dissection. Lymph nodes: Unremarkable. No enlarged lymph nodes. IMPRESSION: Bowel loops are nondilated. No acute inflammatory changes are seen involving the bowel. No mass or lymphadenopathy is seen. Electronically signed by: Miguel Shi MD 06/04/23 19:[address] 06/04/23 18:01 Exam(s): CT CHEST With Contrast IV Amt: 90 ml optiray 320 EXAM: CT Chest With Intravenous Contrast CLINICAL HISTORY: Reason for exam: cachetic, left ptosis, cough, dysphagia ?malignancy. TECHNIQUE: Axial computed tomography images of the chest with intravenous contrast. CTDI is 15.49 mGy and DLP is 1186.72 mGy-cm. Automated exposure control was utilized for the study. A dose lowering technique was utilized adhering to the principles of ALARA. CONTRAST: Patient received 90 ml optiray 320 of IV contrast COMPARISON: February 21, 2019 FINDINGS: Lungs: Small amount of scarring in the lung apices and lung bases. No acute appearing airspace infiltrate is seen. Pleural space: Unremarkable. No pneumothorax. No significant effusion. Heart: The heart is not enlarged. Severe coronary calcification is present. No pericardial effusion. Bones/joints: Moderate multilevel osteophytosis throughout the spine. No acute fracture or destructive bone lesion is seen. No dislocation. Soft tissues: Unremarkable. 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 There is no dissection. The pulmonary arterial tree is well opacified with contrast. No pulmonary embolism is identified. Lymph nodes: Unremarkable. No enlarged lymph nodes. IMPRESSION: 1. 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 There is no dissection. 2. The pulmonary arterial tree is well opacified with contrast. No pulmonary embolism is identified. 3. The heart is not enlarged. Severe coronary calcification is present. No pericardial effusion. Electronically signed by: Miguel Shi MD 06/04/23 19:42 PM 06/09/23 Range/Units 06:03 Sodium 137 (136-145) mmol/L Potassium 3.6 (3.5-5.1) mmol/L Chloride 107 (98-107) mmol/L Carbon Dioxide 25 (21-32) mmol/L Anion Gap 5 (3-11) BUN 6 (6-23) mg/dl Creatinine 0.76 (0.6-1.4) mg/dl Est Cr Clr Drug Dosing 55.6 ml/min Est GFR ( Amer) 98.5 ml/min Est GFR (Non-Af Amer) 85.0 ml/min BUN/Creatinine Ratio 7.9 L (10-20) Glucose 95 (70-99(Fasting)) mg/dl Calcium 8.2 L (8.6-10.3) mg/dl Phosphorus 3.6 (2.5-4.9) mg/dl Magnesium 1.8 (1.7-2.4) mg/dl Random Vancomycin 24.2 H (10-20) mcg/ml Hospital Course (1) Generalized weakness: Severe generalized weakness, solid food dysphagia, significant unintentional weight loss, electrolyte disturbances likely nutritional, elevated inflammatory markers (CRP >4) -seems to be all related to malnutrition with chronically low oral intake due to dysphagia -CT C/A/P with contrast was unrevealing -EGD 06/06 with "mild" schatzki's ring which was dilated, gastritis, biopsied - path pending. Nutrition consulted -intake much improved, GI recommended mechanical soft diet -bid Boost or ensure protein supplement recommended Suspect thiamine deficiency / Wernicke encephalopathy B1 - level still pending. Treated empirically with IV thiamine 500 x 9 doses then continue 100 mg po indefinitely, B12 = 384 low normal, started oral B12 supplement -mentation clearly improved this admission TSH = normal 2.309, and cortisol = 15 PT/OT assessments - recommended rehab - [facility]. strength improving compared to on admission Electrolyte disturbances due to low intake -replaced hypomagnesemia and hypokalemia this admission, ok today -monitor for refeeding syndrome - has not occurred but would check BMP and mag late this week and one week after that (2) Positive blood culture: staph epi in 3/4 bottles drawn in ED. This is one species in 2 of the sets and another species in 1 set. Very suspicious for skin contaminant -repeat blood cultures drawn 06/05 - pending NGTD -treated with IV vancomycin which was stopped 06/09 when repeat blood cultures remained negative >72h (these were drawn prior to starting vancomycin) -TTE notable for normal EF, thickening and calcification present on anterior leaflet of MV and aortic valve, cannot r/o vegetation however similar findings present on 2019 Echo unchanged UA was ordered in the night though asymptomatic - abnormal - ordered CTX last night but culture grew skin irina. Stopped abx. UTI ruled out. (3) Dysphagia: Consulted GI - EGD 06/[address] C/A/P with IV contrast 06/04 reviewed - no findings to explain clinical picture -high dose PPI for 6 weeks then daily PPI thereafter -follow up gastric biopsies -starting to eat, dysphagia improved or resolved post procedure -if dysphagia persists recommend functional study - esophagram -warned his that if dysphagia recurs in future could need repeat EGD with dilation (4) Hypomagnesemia: from poor nutrition replaced IV 2g 06/07, normal (5) Hypokalemia: from poor nutrition, replaced IV normal K 06/07, 06/08, 06/09 (6) Severe protein-calorie malnutrition: -nutrition consulted -monitor intake post EGD/dilation -monitor for refeeding syndrome (7) Ptosis of eyelid, 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 now back to recent baseline (8) Macrocytic anemia: folate deficient - replaced with 1 mg IV then daily 1 mg po (9) Folate deficiency: (10) ASCVD (arteriosclerotic cardiovascular disease): ASCVD - Severe coronary calcification, aortic ectasia 4 cm noted on chest CT -address risk factor reduction -lipid panel in future once eating normally (will not be useful now due to impaired cholesterol synthesis r/t malnutrition) -consider ASA 81 mg once severe gastritis has had a chance to heal -bp labile in hospital but on the balance normotensive Plan Anemia, leukopenia / lymphopenia - likely nutritional - recommend CBC in 4 weeks Elevated anion gap metabolic acidosis, mild lactate elevation - volume depletion, resolved with IVF Total Time Total Time Spent Total Time Spent (In Minutes): 40 minutes coordinating care for discharge Discharge Plan Discharge Items Patient Disposition: Transfer Inpatient Rehab Fac Reason For Visit: DYSPHAGIA, CACHEXIA Discharge Diagnosis: Severe malnutrition due to inadequate oral intake due to dysphagia from Schatzki's ring (dilated) and severe gastritis. Suspect Wernicke Encephalopathy. 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 electrolyte wasting from malnutrition Pending Studies at Discharge: Yes Studies:: blood cultures from 06/05 - NGTD, B1 (thiamine) level - pending Stand-Alone Forms: My [facility] Skilled Items Patient informed of condition?: Yes DNR: No Discharge Level of Care: Acute rehab Communicable Disease: No Discharge Prognosis: Improving Lines: None Urinary Catheter: No Medications and DC Order Prescriptions: New cyanocobalamin (vitamin B-12) 500 mcg Tablet 500 mcg PO QAM Qty: 0 0RF pantoprazole 40 mg Tablet,Delayed Release (Dr/Ec) 40 mg PO QAM Qty: 0 0RF folic acid 1 mg Tablet 1 mg PO QAM Qty: 0 0RF thiamine HCl (vitamin B1) 100 mg Tablet 100 mg PO QAM Qty: 0 0RF Discontinued ibuprofen 200 mg Tablet 400 mg PO Q6H PRN (Reason: Pain) fexofenadine [Melissa Allergy] 180 mg Tablet 180 mg PO DAILY esomeprazole magnesium [Nexium 24HR] 20 mg Capsule,Delayed Release(Dr/Ec) 20 mg PO DAILY Discharge Orders: Discharge Order (Routine); Ordered 06/09/23 Ordered By: Peggy Lord Admission Data Admit Date/Time: 06/04/23 18:45 Attending Provider: Peggy Lord Admit Provider: Binu Cobb Primary Care Provider: Sea Roberts Other Providers: Binu Cobb; Osman Galeano; [facility] Other Interventions: Discharge Summary Assessment (RN) Last Done: 06/09/23 15:04 Coding Level of Care Code 82729 INP/OBS DISCH >30 MIN Diagnoses Generalized weakness R53.1 Positive blood culture R78.81 Esophageal dysphagia R13.19 Dysphagia type: esophageal phase Hypomagnesemia E83.42 Hypokalemia E87.6 Severe protein-calorie malnutrition E43 Ptosis of eyelid, left H02.402 Macrocytic anemia D53.9 Folate deficiency E53.8 ASCVD (arteriosclerotic cardiovascular disease) I25.10
[2023-06-09] MEDS ORDERED: VANCOMYCIN HCL 750 MG in SODIUM CHLORIDE 0.9% 250 ML IV SCH (18:00)
[2023-06-10] MEDS ORDERED: THIAMINE HCL 100 MG TAB PO SCH (09:00)
== END 2023-06-09 15:59 | DRG 391 ==
LOC: ED 13:21 → SUATTDRO 18:45 → 3N 18:45

== ENCOUNTER 2023-07-03 15:51 | Inpatient (IN) ==
--- NOTE | 2023-07-03 16:14 | ED Triage Note ---
Date of Service July 03, 2023 History of Present Illness This patient was briefly evaluated while in triage. An abbreviated physical exam was performed. This patient is a 82-year-old Male who presents to the ED by ems for assessment of weakness. He was to have a GI appt today. Noted to not be able to stand to get in the car. He notes he has not felt well for the past few weeks. Physical Exam GENERAL: 82 year old male. In no acute distress. In a wheelchair. SKIN: No lesions or rashes. HEART: Regular rate and rhythm. LUNGS: Clear to auscultation. ABDOMEN: Bowel sounds normoactive. No guarding or rigidity. No tenderness of palpation. NEURO: Alert and oriented. Slow to answer questions. MUSCULOSKELETAL: No deformities to inspection of the extremities. PSYCH: Patient is pleasant and answers all questions appropriately. Initial orders for labs and / or imaging were placed and patient was placed in the waiting area until a bed is available. Please see further documentation for the full ED course.
--- NOTE | 2023-07-03 16:57 | XRay Report ---
XR chest 1V not portable CLINICAL HISTORY: Weakness TECHNIQUE: Single frontal radiograph of the chest was obtained. Comparison: None available at the time of this dictation. FINDINGS: No lines and tubes are seen. The cardiomediastinal silhouette is normal. The lungs are clear. No evid ence of pleural effusion or pneumothorax. IMPRESSION: No acute chest disease. ACT 112: Negative or not required by law. Electronically signed by: Jerome Mendoaz M.D. 07/03/2023 4:55 PM
[2023-07-03 17:45] LABS: Basophils # (auto) 0.03 K/uL (0.00-0.20); Basophils % (auto) 0.4 %; Eosinophils # (auto) 0.02 K/uL (0.00-0.50); Eosinophils % (auto) 0.3 %; Hematocrit (blood only) 32.5 % (42.0-52.0); Hemoglobin 10.7 g/dl (14.0-18.0); Immature Granulocytes # (auto) 0.08 K/uL (0.01-0.20); Immature Granulocytes % (auto) 1.1 %; Lymphocytes # (auto) 1.05 K/uL (1.20-3.40); Mean Corpuscular Hemoglobin 34.9 pg (25.0-34.0); Mean Corpuscular Hgb Conc 32.9 g/dL (32.0-36.0); Mean Corpuscular Volume 105.9 fL (80.0-100.0); Mean Platelet Volume 10.6 fL (9.4-12.4); Monocytes # (auto) 0.76 K/uL (0.11-0.59); Monocytes % (auto) 10.2 %; Neutrophils # (auto) 5.54 K/uL (1.40-6.50); Platelet Count 258 K/uL (130-400); RDW Coefficient of Variation 13.2 % (11.5-14.5); RDW Standard Deviation 51.1 fL (36.4-46.3); Red Blood Count 3.07 M/uL (4.70-6.10); White Blood Count 7.48 K/ul (4.8-10.8)
[2023-07-03 17:59] LABS: Alanine Aminotransferase 13 U/L (7-52); Albumin Globulin Ratio 0.8 (0.9-2); Albumin Level 3.5 gm/dl (3.4-5.0); Alkaline Phosphatase 96 U/L (34-104); Anion Gap 11 (3-11); Aspartate Aminotransferase 25 U/L (13-39); BUN Creatinine Ratio 21.9 (10-20); Bilirubin,Total 1.4 mg/dl (0.2-1.0); Blood Urea Nitrogen 16 mg/dl (6-23); Carbon Dioxide 22 mmol/L (21-32); Chloride 101 mmol/L (98-107); Est GFR (African American) 100.1 ml/min; Est GFR (Non-African American) 86.4 ml/min; Globulin 4.4 gm/dl (2.5-4.0); Glucose 129 mg/dl (70-99(Fasting)); Lipase 8 U/L (11-82); Magnesium 1.8 mg/dl (1.7-2.4); Potassium 4.2 mmol/L (3.5-5.1); Sodium 134 mmol/L (136-145); Total Protein 7.9 gm/dl (6.0-8.3)
[2023-07-03 18:05] LABS: Troponin I High Sensitivity 8.3 pg/ml (0-20)
[2023-07-03 18:08] LABS: Partial Thromboplastin Time 27.6 Seconds (21.0-31.0); Prothrombin Time 10.5 Seconds (9.0-12.0)
[2023-07-03 18:14] LABS: Thyroid Stimulating Hormone 2.006 uIu/ml (0.300-4.500)
[2023-07-03 18:32] LABS: Adenovirus PCR Not Detected (NotDetected); Bordetella parapertussis PCR Not Detected (NotDetected); Bordetella pertussis PCR Not Detected (NotDetected); Chlamydia pneumoniae PCR Not Detected (NotDetected); Coronavirus 229E PCR Not Detected (NotDetected); Coronavirus CoV-2 (COVID19)PCR Not Detected (NotDetected); Coronavirus HKU1 PCR Not Detected (NotDetected); Coronavirus NL63 PCR Not Detected (NotDetected); Coronavirus OC43PCR Not Detected (NotDetected); Human Metapneumovirus PCR Not Detected (NotDetected); Influenza A PCR Not Detected (NotDetected); Influenza B PCR Not Detected (NotDetected); Mycoplasma pneumoniae PCR Not Detected (NotDetected); Parainfluenza Virus 1 PCR Not Detected (NotDetected); Parainfluenza Virus 2 PCR Not Detected (NotDetected); Parainfluenza Virus 3 PCR Not Detected (NotDetected); Parainfluenza Virus 4 PCR Not Detected (NotDetected); Respiratory Syncytial VirusPCR Not Detected (NotDetected); Rhinovirus/Enterovirus PCR Not Detected (NotDetected)
--- NOTE | 2023-07-03 21:34 | Emergency Department Note ---
Impression & Plan Weakness, Anemia ED Provider Note ED Provider Note NAME: JERZY PADILLA AGE:82 SEX: Male : 1940 ARRIVES VIA: EMS INFORMANT: Patient ED PROVIDER(s): Hien Nieves DO CHIEF COMPLAINT: Weakness HPI: This is an 82-year-old male presents emerged department via EMS with family at bedside due to concern for increased weakness over the last several days. Patient has been home from [facility] following hospitalization for dilation of Schatzki ring and evaluation of anemia and weakness at that time. He states he felt well by the time he was discharged from [facility] and felt well his first 2 weeks home. He states over the last several days he has begun feeling worse. He states in the last 48 hours he did have 24 hours of lower left abdominal pain that he did not report to anyone. He was scheduled to have follow-up with GI this afternoon in the office however was too weak to get up and even get in the car so family called 911 and brought him here. He denies fevers or chills. He denies any change in urine or stools. He states he has been eating but does not drink a lot of water since he has been home. He states he has been taking his medications as prescribed including the pantoprazole GI started him on following the EGD. PAST MEDICAL HISTORY:See Below PAST SURGICAL HISTORY:See Below FAMILY HISTORY:See Below SOCIAL HISTORY:See Below HOME MEDICATIONS:See Below ALLERGIES:See Below VITALS:See Below PHYSICAL EXAMINATION: GENERAL: alert, well appearing, well nourished, no distress, non-toxic EYE EXAM: normal conjunctiva, PERRL and EOM's grossly intact OROPHARYNX: no exudate, no erythema, lips, buccal mucosa, and tongue normal and mucous membranes are moist NECK: supple, no nuchal rigidity, no adenopathy, non-tender LUNGS: Clear to auscultation. Normal chest wall mechanics, no w/r/r HEART: no murmurs, S1 normal and S2 normal ABDOMEN: abdomen soft, non-tender, normo-active bowel sounds, no masses, no rebound or guarding. BACK: Back is symmetrical on inspection and there is no deformity, no midline tenderness, no CVA tenderness. SKIN: no rashes, petechiae, orbruising UPPER EXTREMITIES: upper extremities are grossly normal. FROM, nml pulses b/l. LOWER EXTREMITIES: No pitting edema. FROM, nml pulses b/l. NEURO EXAM: Normal sensorium, cranial nerves II-XII grossly intact, normal speech, no facial droop,nogross weakness of arms, no gross weakness of legs. Gross sensation intact. No ataxia. Vital Signs: reviewed and remarkable Differential Diagnosis: dehydration, stroke, anemia, hypoglycemia, hyponatremia, hypernatremia, urinary tract infection, pneumonia, bronchitis, sepsis, gastroenteritis, additional abdominal pathology, metabolic abnormalities, as well as others were considered MEDICAL DECISION MAKING: This is an 82-year-old male brought in by EMS after family found him too weak to be able to stand or get out of bed to get to a scheduled doctor's appointment. Patient with recent hospitalization and EGD for dilatation of Schatzki ring. Patient complains of increased weakness over the last 3 to 4 days. He states he is taking his medications as prescribed. Due to prior significant history of recent hospitalization, labs are drawn and sent, IV established, EKG and chest were performed bedside interpreted by me and patient monitor on telemetry. He is was started on IV fluids due to concern for dehydration. Patient sent for CT of the abdomen and pelvis that he does have mild discomfort with palpation although denies any recent change in urine or stools. No acute abnormalities noted on CT. No ectopy or dysrhythmia noted on telemetry. Patient remained hemodynamically stable. Attempts to stand and ambulate at bedside were unsuccessful and patient very unsteady and weak. Case discussed with hospitalist for additional evaluation and management. Consultation(s): 0312: Discussed with Dr. Shi, [facility] hospitalist for additional evaluation and management. ER Treatment Provided: See below Diagnostics Interpreted By Me: -ECG: Sinus tachycardia at 110, leftward axis, normal intervals, PVC noted, appearance of ST depression in lead III, V4, V5, and V6 -Cardiac Monitoring: An order was placed for continuous cardiac monitoring. The monitor shows a rate of 78 with normal sinus rhythm. -Laboratory studies: As stated above and show below. -Imaging studies: X-ray Chest: A single view study of the chest was reviewed and was negative for cardiomegaly, focal infiltrate, effusion, pulmonary edema, or wide mediastinum. Triage Nursing Note Reviewed Prior/Outside Records Reviewed -review of EGD on 06/05/2023 Past Med/Surg History Medical History Ptosis of eyelid, left Dupuytren's contracture of hand Social History Smoking Status: Never smoker Second Hand Exposure: No; Do You Dip or Chew Tobacco: No; Hx Alcohol Use: Yes Hx Substance Use: No Preferred Language: Tuvaluan Communication Ability: Effective Bakery Demonstrator Required: No Beliefs That Will Affect Care: None Current Living Situation: Spouse Feels Safe at Home: Yes Assistive Devices: Cane and Walker Allergies Allergies Allergy/AdvReac Type Severity Reaction Status Date / Time shrimp Allergy Severe Hives and Unverified 06/04/23 18:16 GI Upset erythromycin base Allergy Unknown Unknown Unverified 06/04/23 18:16 Home Meds Home Medications Medication Instructions Recorded Confirmed escitalopram oxalate 5 mg tablet 5 mg PO DAILY 07/03/23 07/03/23 Previous Rx's Medication Instructions Recorded cyanocobalamin (vitamin B-12) 500 500 mcg PO QAM #0 tabs 06/09/23 mcg tablet folic acid 1 mg tablet 1 mg PO QAM #0 tabs 06/09/23 pantoprazole 40 mg tablet,delayed 40 mg PO QAM #0 tabs 06/09/23 release thiamine HCl (vitamin B1) 100 mg 100 mg PO QAM #0 tabs 06/09/23 tablet Results & Data (ED) Vital Signs Vital Signs - 24 hr 07/03/23 16:13 07/03/23 20:48 07/03/23 21:00 Temperature 36.4 C L Temperature Source Temporal Artery Scan Pulse Rate 75 101 H Pulse Rate [Apical] 93 H Pulse Rhythm [Apical] Regular Pulse Strength [Apical] Normal Respiratory Rate 20 21 Respiratory Effort / Characteristics Non-Labored Spontaneous Non-Labored Spontaneous Respiratory Depth Normal Normal Respiratory Pattern Blood Pressure 138/89 Blood Pressure [Right Arm] 154/102 H Blood Pressure Mean 105 Blood Pressure Mean [Right Arm] 119 Blood Pressure Position [Right Arm] Pulse Oximetry 97 96 Oxygen Delivery Method Room Air Room Air Sepsis Recent Fever Within 48 Hours No Sepsis New/Unexplained Change in Mental Status No Sepsis Action Taken by Nursing No Action Required 07/03/23 23:00 07/04/23 00:27 07/04/23 01:00 Temperature Temperature Source Pulse Rate 89 Pulse Rate [Apical] 86 79 Pulse Rhythm [Apical] Regular Regular Pulse Strength [Apical] Normal Normal Respiratory Rate 16 20 Respiratory Effort / Characteristics Non-Labored Spontaneous Non-Labored Spontaneous Respiratory Depth Normal Normal Respiratory Pattern Regular Regular Blood Pressure Blood Pressure [Right Arm] 128/87 Blood Pressure Mean Blood Pressure Mean [Right Arm] 100 Blood Pressure Position [Right Arm] Lying Pulse Oximetry 98 98 Oxygen Delivery Method Room Air Room Air Sepsis Recent Fever Within 48 Hours Sepsis New/Unexplained Change in Mental Status Sepsis Action Taken by Nursing Laboratory Data 07/04/23 12:54 07/04/23 08:12 Lab Results 07/03/23 07/03/23 07/03/23 Range/Units 15:21 17:23 22:25 WBC 7.48 (4.8-10.8) K/ul RBC 3.07 L (4.70-6.10) M/uL Hgb 10.7 L (14.0-18.0) g/dl Hct 32.5 L (42.0-52.0) % MCV 105.9 H (80.0-100.0) fL MCH 34.9 H (25.0-34.0) pg MCHC 32.9 (32.0-36.0) g/dL RDW Std Deviation 51.1 H (36.4-46.3) fL RDW Coeff of Shayan 13.2 (11.5-14.5) % Plt Count 258 (130-400) K/uL MPV 10.6 (9.4-12.4) fL Immature Gran % (Auto) 1.1 % Neut % (Auto) 74.0 % Lymph % (Auto) 14.0 % Burleigh % (Auto) 10.2 % Eos % (Auto) 0.3 % Baso % (Auto) 0.4 % Neut # (Auto) 5.54 (1.40-6.50) K/uL Lymph # (Auto) 1.05 L (1.20-3.40) K/uL Burleigh # (Auto) 0.76 H (0.11-0.59) K/uL Eos # (Auto) 0.02 (0.00-0.50) K/uL Baso # (Auto) 0.03 (0.00-0.20) K/uL Immature Gran # (Auto) 0.08 (0.01-0.20) K/uL PT 10.5 (9.0-12.0) Seconds INR 1.0 (0.9-1.1) APTT 27.6 (21.0-31.0) Seconds PTT Ratio 1.0 Sodium 134 L (136-145) mmol/L Potassium 4.2 (3.5-5.1) mmol/L Chloride 101 (98-107) mmol/L Carbon Dioxide 22 (21-32) mmol/L Anion Gap 11 (3-11) BUN 16 (6-23) mg/dl Creatinine 0.73 (0.6-1.4) mg/dl Est Cr Clr Drug Dosing Not Reportable Est GFR ( Amer) 100.1 ml/min Est GFR (Non-Af Amer) 86.4 ml/min BUN/Creatinine Ratio 21.9 H (10-20) Glucose 129 H (70-99(Fasting)) mg/dl Lactate 1.9 (0.4-2.0) mmol/L Calcium 9.0 (8.6-10.3) mg/dl Magnesium 1.8 (1.7-2.4) mg/dl Total Bilirubin 1.4 H (0.2-1.0) mg/dl AST 25 (13-39) U/L ALT 13 (7-52) U/L Alkaline Phosphatase 96 (34-104) U/L Troponin I High Sens 8.3 7.3 (0-20) pg/ml Total Protein 7.9 (6.0-8.3) gm/dl Albumin 3.5 (3.4-5.0) gm/dl Globulin 4.4 H (2.5-4.0) gm/dl Albumin/Globulin Ratio 0.8 L (0.9-2) Lipase 8 L (11-82) U/L Procalcitonin 0.10 (0-0.5) ng/ml TSH 2.006 (0.300-4.500) uIu/ml Urine Color Urine Appearance (Clear) Urine pH (4.5-7.5) Ur Specific Benton (1.000-1.030) Urine Protein (Negative) Urine Glucose (UA) (Negative) Urine Ketones (Negative) Urine Blood (Negative) Urine Nitrite (Negative) Urine Bilirubin (Negative) Urine Urobilinogen (Negative) Ur Leukocyte Esterase (Negative) Urine WBC (Auto) (0-5) /hpf Urine RBC (Auto) (0-4) /hpf U Hyaline Cast (Auto) (0-5) /lpf U Epithel Cells (Auto) (0-5) /lpf Urine Bacteria (Auto) (Negative) Ur Renal Epithelial Cell (0-5) /lpf Adenovirus (PCR) Not Detected (NotDetected) B. pertussis DNA (PCR) Not Detected (NotDetected) B.parapertussis DNA PCR Not Detected (NotDetected) C. pneumoniae DNA (PCR) Not Detected (NotDetected) Coronavirus OC43 (PCR) Not Detected (NotDetected) Coronavirus HKU1 (PCR) Not Detected (NotDetected) Coronavirus 229E (PCR) Not Detected (NotDetected) SARS-CoV-2 (PCR) Not Detected (NotDetected) Coronavirus NL63 (PCR) Not Detected (NotDetected) Human Metapneumovir PCR Not Detected (NotDetected) Influenza Type A (PCR) Not Detected (NotDetected) Influenza Type B (PCR) Not Detected (NotDetected) M. pneumoniae (PCR) Not Detected (NotDetected) Parainfluenza 1 (PCR) Not Detected (NotDetected) Parainfluenza 2 (PCR) Not Detected (NotDetected) Parainfluenza 3 (PCR) Not Detected (NotDetected) Parainfluenza 4 (PCR) Not Detected (NotDetected) RSV (PCR) Not Detected (NotDetected) Entero/Rhino (PCR) Not Detected (NotDetected) 07/03/23 Range/Units 23:44 WBC (4.8-10.8) K/ul RBC (4.70-6.10) M/uL Hgb (14.0-18.0) g/dl Hct (42.0-52.0) % MCV (80.0-100.0) fL MCH (25.0-34.0) pg MCHC (32.0-36.0) g/dL RDW Std Deviation (36.4-46.3) fL RDW Coeff of Shayan (11.5-14.5) % Plt Count (130-400) K/uL MPV (9.4-12.4) fL Immature Gran % (Auto) % Neut % (Auto) % Lymph % (Auto) % Burleigh % (Auto) % Eos % (Auto) % Baso % (Auto) % Neut # (Auto) (1.40-6.50) K/uL Lymph # (Auto) (1.20-3.40) K/uL Burleigh # (Auto) (0.11-0.59) K/uL Eos # (Auto) (0.00-0.50) K/uL Baso # (Auto) (0.00-0.20) K/uL Immature Gran # (Auto) (0.01-0.20) K/uL PT (9.0-12.0) Seconds INR (0.9-1.1) APTT (21.0-31.0) Seconds PTT Ratio Sodium (136-145) mmol/L Potassium (3.5-5.1) mmol/L Chloride (98-107) mmol/L Carbon Dioxide (21-32) mmol/L Anion Gap (3-11) BUN (6-23) mg/dl Creatinine (0.6-1.4) mg/dl Est Cr Clr Drug Dosing Est GFR ( Amer) ml/min Est GFR (Non-Af Amer) ml/min BUN/Creatinine Ratio (10-20) Glucose (70-99(Fasting)) mg/dl Lactate (0.4-2.0) mmol/L Calcium (8.6-10.3) mg/dl Magnesium (1.7-2.4) mg/dl Total Bilirubin (0.2-1.0) mg/dl AST (13-39) U/L ALT (7-52) U/L Alkaline Phosphatase (34-104) U/L Troponin I High Sens (0-20) pg/ml Total Protein (6.0-8.3) gm/dl Albumin (3.4-5.0) gm/dl Globulin (2.5-4.0) gm/dl Albumin/Globulin Ratio (0.9-2) Lipase (11-82) U/L Procalcitonin (0-0.5) ng/ml TSH (0.300-4.500) uIu/ml Urine Color Dark Yellow Urine Appearance Clear (Clear) Urine pH 6.5 (4.5-7.5) Ur Specific Benton 1.021 (1.000-1.030) Urine Protein Negative (Negative) Urine Glucose (UA) Negative (Negative) Urine Ketones Negative (Negative) Urine Blood Negative (Negative) Urine Nitrite Negative (Negative) Urine Bilirubin Negative (Negative) Urine Urobilinogen Negative (Negative) Ur Leukocyte Esterase 1+ H (Negative) Urine WBC (Auto) 10-30 H (0-5) /hpf Urine RBC (Auto) 0-4 (0-4) /hpf U Hyaline Cast (Auto) 0 (0-5) /lpf U Epithel Cells (Auto) >30 H (0-5) /lpf Urine Bacteria (Auto) Negative (Negative) Ur Renal Epithelial Cell 0-5 (0-5) /lpf Adenovirus (PCR) (NotDetected) B. pertussis DNA (PCR) (NotDetected) B.parapertussis DNA PCR (NotDetected) C. pneumoniae DNA (PCR) (NotDetected) Coronavirus OC43 (PCR) (NotDetected) Coronavirus HKU1 (PCR) (NotDetected) Coronavirus 229E (PCR) (NotDetected) SARS-CoV-2 (PCR) (NotDetected) Coronavirus NL63 (PCR) (NotDetected) Human Metapneumovir PCR (NotDetected) Influenza Type A (PCR) (NotDetected) Influenza Type B (PCR) (NotDetected) M. pneumoniae (PCR) (NotDetected) Parainfluenza 1 (PCR) (NotDetected) Parainfluenza 2 (PCR) (NotDetected) Parainfluenza 3 (PCR) (NotDetected) Parainfluenza 4 (PCR) (NotDetected) RSV (PCR) (NotDetected) Entero/Rhino (PCR) (NotDetected) Administered Medications Cyanocobalamin (Cyanocobalamin (B-12) 500 Mcg Tablet) 500 mcg PO QAM [facility] Stop: 08/03/23 08:59 Last Admin: 07/04/23 10:54 Dose: 500 mcg Documented By: SANTOS Enoxaparin Sodium (Enoxaparin Inj 40 Mg/0.4 Ml Syr) 40 mg SQ Q24H HENOK Stop: 08/03/23 08:59 Last Admin: 07/04/23 10:55 Dose: 40 mg Documented By: SANTOS Escitalopram Oxalate (Escitalopram Oxalate 10 Mg Tab) 5 mg PO DAILY HENOK Stop: 08/03/23 08:59 Last Admin: 07/04/23 10:54 Dose: 5 mg Documented By: SANTOS Folic Acid (Folic Acid 1 Mg Tab) 1 mg PO QAM HENOK Stop: 08/03/23 08:59 Last Admin: 07/04/23 10:54 Dose: 1 mg Documented By: SANTOS Pantoprazole Sodium (Pantoprazole 40 Mg Tab) 40 mg PO QAM HENOK Stop: 08/03/23 08:59 Last Admin: 07/04/23 10:55 Dose: 40 mg Documented By: SANTOS Thiamine HCl (Thiamine Hcl 100 Mg Tab) 100 mg PO QAM [facility] Stop: 08/03/23 08:59 Last Admin: 07/04/23 10:55 Dose: 100 mg Documented By: SANTOS Discontinued Medications Sodium Chloride (Nss) 1,000 mls @ 125 mls/hr IV .Q8H HENOK Stop: 08/02/23 21:29 Last Admin: 07/04/23 06:14 Dose: Not Given Documented By: Infusion: 07/04/23 05:45 Dose: Infused Documented By: Admin: 07/03/23 22:06 Dose: 125 mls/hr Documented By: SHERMAN Ioversol (Optiray 320 500ml) 83 ml IV ONCE ONE Stop: 07/03/23 21:47 Last Admin: 07/03/23 21:46 Dose: 83 ml Documented By: HIPOLITO Potassium Chloride (Potassium Chloride 20 Meq/15 Ml Udc) 40 meq PO NOW STA Stop: 07/04/23 12:55 Last Admin: 07/04/23 14:19 Dose: 40 meq Documented By: SANTOS Imaging Data Radiologist's Impression: Chest X-Ray 07/03/23 16:14 XR chest 1V not portable CLINICAL HISTORY: Weakness TECHNIQUE: Single frontal radiograph of the chest was obtained. Comparison: None available at the time of this dictation. FINDINGS: No lines and tubes are seen. The cardiomediastinal silhouette is normal. The lungs are clear. No evidence of pleural effusion or pneumothorax. IMPRESSION: No acute chest disease. ACT 112: Negative or not required by law. Electronically signed by: Jerome Mendoza M.D. 07/03/2023 4:55 PM Abdomen/Pelvis CT 07/03/23 21:21 Exam(s): CT ABDOMEN + PELVIS With Contrast IV Amt: 83 ml optiray 320 EXAM: CT Abdomen and Pelvis With Intravenous Contrast CLINICAL HISTORY: Reason for exam: LLQ pain. TECHNIQUE: Axial computed tomography images of the abdomen and pelvis with intravenous contrast. CTDI is 15.66 mGy and DLP is 748.61 mGy-cm. Automated exposure control was utilized for the study. A dose lowering technique was utilized adhering to the principles of ALARA. CONTRAST: Patient received 83 ml optiray 320 of IV contrast COMPARISON: No relevant prior studies available. FINDINGS: Lung bases: Unremarkable. No mass. No consolidation. ABDOMEN: Liver: Unremarkable. No mass. Gallbladder and bile ducts: Unremarkable. No calcified stones. No ductal dilation. Pancreas: Unremarkable. No mass. No ductal dilation. Spleen: Calcified splenic granuloma. Adrenals: Unremarkable. No mass. Kidneys and ureters: Unremarkable. No solid mass. No hydronephrosis. Stomach and bowel: Diverticulosis, without acute diverticulitis. No small bowel obstruction. No free intraperitoneal air. PELVIS: Appendix: Normal appendix. Bladder: Unremarkable. No mass. Reproductive: Unremarkable as visualized. ABDOMEN and PELVIS: Intraperitoneal space: Unremarkable. No free air. No significant fluid collection. Bones/joints: Degenerative changes of the spine. No acute fracture. No dislocation. Soft tissues: Unremarkable. Vasculature: Atherosclerotic changes of the aorta. No abdominal aortic aneurysm. Lymph nodes: Unremarkable. No enlarged lymph nodes. IMPRESSION: No acute findings in the abdomen or pelvis. Electronically signed by: Abhi Hinojosa MD 07/03/23 22:58 PM Discharge Plan Visit Data Chief Complaint: Weakness Stated Complaint: WEAKNESS ED Provider: Hien Nieves Discharge Problem: Weakness, Anemia Patient Disposition: Admitted As Inpatient Discharge Instructions Interventions: ED Discharge Assessment Last Done: 07/04/23 04:35
[2023-07-03] MEDS ORDERED: OPTIRAY 320 500ml IV ONE (21:46)
[2023-07-03] MEDS: SODIUM CHLORIDE 0.9% 1,000 ML IV SCH (22:06)
--- NOTE | 2023-07-03 22:59 | CT Scan Report ---
Exam(s): CT ABDOMEN + PELVIS With Contrast IV Amt: 83 ml optiray 320 EXAM: CT Abdomen and Pelvis With Intravenous Contrast CLINICAL HISTORY: Reason for exam: LLQ pain. TECHNIQUE: Axial computed tomography images of the abdomen and pelvis with intravenous contrast. CTDI is 15.66 mGy and DLP is 748.61 mGy-cm. Automated exposure control was utilized for the study. A dose lowering technique was utilized adhering to the principles of ALARA. CONTRAST: Patient received 83 ml optiray 320 of IV contrast COMPARISON: No relevant prior studies available. FINDINGS: Lung bases: Unremarkable. No mass. No consolidation. ABDOMEN: Liver: Unremarkable. No mass. Gallbladder and bile ducts: Unremarkable. No calcified stones. No ductal dilation. Pancreas: Unremarkable. No mass. No ductal dilation. Spleen: Calcified splenic granuloma. Adrenals: Unremarkable. No mass. Kidneys and ureters: Unremarkable. No solid mass. No hydronephrosis. Stomach and bowel: Diverticulosis, without acute diverticulitis. No small bowel obstruction. No free intraperitoneal air. PELVIS: Appendix: Normal appendix. Bladder: Unremarkable. No mass. Reproductive: Unremarkable as visualized. ABDOMEN and PELVIS: Intraperitoneal space: Unremarkable. No free air. No significant fluid collection. Bones/joints: Degenerative changes of the spine. No acute fracture. No dislocation. Soft tissues: Unremarkable. Vasculature: Atherosclerotic changes of the aorta. No abdominal aortic aneurysm. Lymph nodes: Unremarkable. No enlarged lymph nodes. IMPRESSION: No acute findings in the abdomen or pelvis. Electronically signed by: Abhi Hinojsoa MD 07/03/23 22:58 PM
[2023-07-03 23:58] LABS: Appearance Urine Clear (Clear); Bacteria Urine Automated Negative (Negative); Bilirubin Urine Negative (Negative); Blood Urine Negative (Negative); Cast Urine Automated 0 /lpf (0-5); Color Urine Dark Yellow; Epithelial Cell Urine Auto >30 /lpf (0-5); Glucose Urine UA Negative (Negative); Ketones Urine Negative (Negative); Leukocyte Esterase Urine 1+ (Negative); Nitrite Urine Negative (Negative); Protein Urine Negative (Negative); RBC Urine Automated 0-4 /hpf (0-4); Specific Gravity Urine 1.021 (1.000-1.030); Urobilinogen Urine Negative (Negative); pH Urine 6.5 (4.5-7.5)
[2023-07-04 00:15] LABS: Renal Epithelial Cells Urine 0-5 /lpf (0-5)
--- NOTE | 2023-07-04 03:45 | History & Physical Report ---
Date of Service July 04, 2023 Assessment & Plan (1) Weakness: Plan: Etiology unclear at this time. No obvious source of infection. Patient did have positive blood cultures on 06/04/23 for coagulase negative staph which was thought to be contamination. Repeat cultures from 06/05 remain negative. He was treated with IV vancomycin. -Await culture results -Check Mg and Po4 -PT/OT -Continue B12/Folate/Thiamine History of Present Illness Chief Complaint: weakness Primary Care Provider: Sea Roberts Ahmet Alvarez is an 82yo male presenting from home with report of generalized weakness. Patient was recently admitted to [facility] from 06/04/23 - 06/09/23 with similar complaints, weakness, fatigue and dysphagia - found to have a Schatzki's ring on EGD 06/06/23 which was dilated. He was discharged to acute rehab. Patient is brought to the ER by his family. Reportedly was too weak to stand. He has had progressive weakness and LLQ pain over the last several days. Patient is asleep at this time and does not offer any details of events prior to arrival. Allergies Allergy/AdvReac Type Severity Reaction Status Date / Time shrimp Allergy Severe Hives and Unverified 06/04/23 18:16 GI Upset erythromycin base Allergy Unknown Unknown Unverified 06/04/23 18:16 Home Medications Medication Instructions Recorded Confirmed Type cyanocobalamin (vitamin B-12) 500 500 mcg PO QAM #0 tabs 06/09/23 07/03/23 Rx mcg tablet folic acid 1 mg tablet 1 mg PO QAM #0 tabs 06/09/23 07/03/23 Rx pantoprazole 40 mg tablet,delayed 40 mg PO QAM #0 tabs 06/09/23 07/03/23 Rx release thiamine HCl (vitamin B1) 100 mg 100 mg PO QAM #0 tabs 06/09/23 07/03/23 Rx tablet escitalopram oxalate 5 mg tablet 5 mg PO DAILY 07/03/23 07/03/23 History Past Med/Surg History Medical History Ptosis of eyelid, left Dupuytren's contracture of hand Social History Smoking Status: Never smoker Hx Alcohol Use: Yes Hx Substance Use: No Preferred Language: Chinese Communication Ability: Effective Medical Coding Specialist Required: No Beliefs That Will Affect Care: None Current Living Situation: Spouse Feels Safe at Home: Yes Assistive Devices: Cane and Walker Review of Systems Review of Systems: All systems reviewed & are unremarkable except as noted in HPI & below Physical Exam Physical Exam: General: frail, elderly male, sleepin in bed Skin: warm, dry, intact, no rashes or lesions HEENT: NC/AT, PERRL, EOMI, anicteric sclera, conjunctiva without injection, external ear normal to inspection and nontender, nares patent, moist mucus membranes, dentition intact, no oropharyngeal lesions, neck supple, trachea midline, no LAD, no thyromegaly, no JVD Heart: +S1/S2, regular, no m/r/g Lungs: equal air entry bilaterally, no rales/rhonchi/wheezes Abd: +BS, soft, NT/ND, no masses/organomegaly/ascites Ext: warm, 2+ pulses in UE/LE bilaterally, no clubbing/cyanosis or edema Results & Data Results & Data Vital Signs (Past 12 Hours) Vital Signs Temp Pulse Pulse Resp BP BP Pulse Ox 07/04/23 02:03 102 H 166/104 H 07/04/23 01:00 89 22 123/87 99 07/04/23 01:00 79 20 128/87 98 07/04/23 00:27 89 07/04/23 00:00 86 22 137/83 98 07/03/23 23:30 105 H 24 166/108 H 96 07/03/23 23:00 86 16 98 07/03/23 21:00 93 H 21 154/102 H 96 07/03/23 20:48 101 H 07/03/23 20:43 154/102 H 07/03/23 16:13 36.4 C L 75 20 138/89 97 O2 Del Method 07/04/23 02:03 07/04/23 01:00 07/04/23 01:00 Room Air 07/04/23 00:27 07/04/23 00:00 07/03/23 23:30 07/03/23 23:00 Room Air 07/03/23 21:00 Room Air 07/03/23 20:48 07/03/23 20:43 07/03/23 16:13 Room Air Laboratory Results Laboratory Results WBC 7.48 K/ul (4.8-10.8) 07/03/23 17: RBC 3.07 M/uL (4.70-6.10) L 07/03/23 17: Hgb 10.7 g/dl (14.0-18.0) L 07/03/23 17: Hct 32.5 % (42.0-52.0) L 07/03/23 17: MCV 105.9 fL (80.0-100.0) H 07/03/23 17: MCH 34.9 pg (25.0-34.0) H 07/03/23: MCHC 32.9 g/dL (32.0-36.0) 07/03/23: RDW Std Deviation 51.1 fL (36.4-46.3) H 07/03/23: RDW Coeff of Shayan 13.2 % (11.5-14.5) 07/03/23: Plt Count 258 K/uL (130-400) 07/03/23: MPV 10.6 fL (9.4-12.4) 07/03/23: Immature Gran % (Auto) 1.1 % 07/03/23: Neut % (Auto) 74.0 % 07/03/23: Lymph % (Auto) 14.0 % 07/03/23: Finney % (Auto) 10.2 % 07/03/23: Eos % (Auto) 0.3 % 07/03/23: Baso % (Auto) 0.4 % 07/03/23: Neut # (Auto) 5.54 K/uL (1.40-6.50) 07/03/23: Lymph # (Auto) 1.05 K/uL (1.20-3.40) L 07/03/23: Finney # (Auto) 0.76 K/uL (0.11-0.59) H 07/03/23 17: Eos # (Auto) 0.02 K/uL (0.00-0.50) 07/03/23:23 Baso # (Auto) 0.03 K/uL (0.00-0.20) 07/03/23 17:23 Immature Gran # (Auto) 0.08 K/uL (0.01-0.20) 07/03/23 17: PT 10.5 Seconds (9.0-12.0) 07/03/23 17: INR 1.0 (0.9-1.1) 07/03/23 17: APTT 27.6 Seconds (21.0-31.0) 07/03/23 17: PTT Ratio 1.0 07/03/23 17: Sodium 134 mmol/L (136-145) L 07/03/23 17: Potassium 4.2 mmol/L (3.5-5.1) 07/03/23: Chloride 101 mmol/L (98-107) 07/03/23: Carbon Dioxide 22 mmol/L (21-32) 07/03/23 17: Anion Gap 11 (3-11) 07/03/23 17: BUN 16 mg/dl (6-23) 07/03/23 17: Creatinine 0.73 mg/dl (0.6-1.4) 07/03/23 17: Est Cr Clr Drug Dosing Not Reportable 07/03/23 17: Est GFR ( Amer) 100.1 ml/min 07/03/23 17: Est GFR (Non-Af Amer) 86.4 ml/min 07/03/23 17: BUN/Creatinine Ratio 21.9 (10-20) H 07/03/23 17: Glucose 129 mg/dl (70-99(Fasting)) H 07/03/23 17:23 Lactate 1.9 mmol/L (0.4-2.0) 07/03/23 17: Calcium 9.0 mg/dl (8.6-10.3) 07/03/23 17: Magnesium 1.8 mg/dl (1.7-2.4) 07/03/23 17: Total Bilirubin 1.4 mg/dl (0.2-1.0) H 07/03/23 17: AST 25 U/L (13-39) 07/03/23 17: ALT 13 U/L (7-52) 07/03/23 17:23 Alkaline Phosphatase 96 U/L (34-104) 07/03/23 17:23 Troponin I High Sens 7.3 pg/ml (0-20) 07/03/23 22:25 Total Protein 7.9 gm/dl (6.0-8.3) 07/03/23 17:23 Albumin 3.5 gm/dl (3.4-5.0) 07/03/23 17:23 Globulin 4.4 gm/dl (2.5-4.0) H 07/03/23 17:23 Albumin/Globulin Ratio 0.8 (0.9-2) L 07/03/23 17:23 Lipase 8 U/L (11-82) L 07/03/23 17: Procalcitonin 0.10 ng/ml (0-0.5) 07/03/23 17: TSH 2.006 uIu/ml (0.300-4.500) 07/03/23 17:23 Urine Color Dark Yellow 07/03/23 23:44 Urine Appearance Clear (Clear) 07/03/23 23:44 Urine pH 6.5 (4.5-7.5) 07/03/23 23:44 Ur Specific Parker 1.021 (1.000-1.030) 07/03/23 23:44 Urine Protein Negative (Negative) 07/03/23 23:44 Urine Glucose (UA) Negative (Negative) 07/03/23 23:44 Urine Ketones Negative (Negative) 07/03/23 23:44 Urine Blood Negative (Negative) 07/03/23 23:44 Urine Nitrite Negative (Negative) 07/03/23 23:44 Urine Bilirubin Negative (Negative) 07/03/23 23:44 Urine Urobilinogen Negative (Negative) 07/03/23 23:44 Ur Leukocyte Esterase 1+ (Negative) H 07/03/23 23:44 Urine WBC (Auto) 10-30 /hpf (0-5) H 07/03/23 23:44 Urine RBC (Auto) 0-4 /hpf (0-4) 07/03/23 23:44 U Hyaline Cast (Auto) 0 /lpf (0-5) 07/03/23 23:44 U Epithel Cells (Auto) >30 /lpf (0-5) H 07/03/23 23:44 Urine Bacteria (Auto) Negative (Negative) 07/03/23 23:44 Ur Renal Epithelial Cell 0-5 /lpf (0-5) 07/03/23 23:44 Adenovirus (PCR) Not Detected (NotDetected) 07/03/23 15:21 B. pertussis DNA (PCR) Not Detected (NotDetected) 07/03/23 15:21 B.parapertussis DNA PCR Not Detected (NotDetected) 07/03/23 15:21 C. pneumoniae DNA (PCR) Not Detected (NotDetected) 07/03/23 15:21 Coronavirus OC43 (PCR) Not Detected (NotDetected) 07/03/23 15:21 Coronavirus HKU1 (PCR) Not Detected (NotDetected) 07/03/23 15:21 Coronavirus 229E (PCR) Not Detected (NotDetected) 07/03/23 15:21 SARS-CoV-2 (PCR) Not Detected (NotDetected) 07/03/23 15:21 Coronavirus NL63 (PCR) Not Detected (NotDetected) 07/03/23 15:21 Human Metapneumovir PCR Not Detected (NotDetected) 07/03/23 15:21 Influenza Type A (PCR) Not Detected (NotDetected) 07/03/23 15:21 Influenza Type B (PCR) Not Detected (NotDetected) 07/03/23 15:21 M. pneumoniae (PCR) Not Detected (NotDetected) 07/03/23 15:21 Parainfluenza 1 (PCR) Not Detected (NotDetected) 07/03/23 15:21 Parainfluenza 2 (PCR) Not Detected (NotDetected) 07/03/23 15:21 Parainfluenza 3 (PCR) Not Detected (NotDetected) 07/03/23 15:21 Parainfluenza 4 (PCR) Not Detected (NotDetected) 07/03/23 15:21 RSV (PCR) Not Detected (NotDetected) 07/03/23 15:21 Entero/Rhino (PCR) Not Detected (NotDetected) 07/03/23 15:21 Impressions Chest X-Ray 07/03/23 16:14 XR chest 1V not portable CLINICAL HISTORY: Weakness TECHNIQUE: Single frontal radiograph of the chest was obtained. Comparison: None available at the time of this dictation. FINDINGS: No lines and tubes are seen. The cardiomediastinal silhouette is normal. The lungs are clear. No evidence of pleural effusion or pneumothorax. IMPRESSION: No acute chest disease. ACT 112: Negative or not required by law. Electronically signed by: Jerome Mendoza M.D. 07/03/2023 4:55 PM Abdomen/Pelvis CT 07/03/23 21:21 Exam(s): CT ABDOMEN + PELVIS With Contrast IV Amt: 83 ml optiray 320 EXAM: CT Abdomen and Pelvis With Intravenous Contrast CLINICAL HISTORY: Reason for exam: LLQ pain. TECHNIQUE: Axial computed tomography images of the abdomen and pelvis with intravenous contrast. CTDI is 15.66 mGy and DLP is 748.61 mGy-cm. Automated exposure control was utilized for the study. A dose lowering technique was utilized adhering to the principles of ALARA. CONTRAST: Patient received 83 ml optiray 320 of IV contrast COMPARISON: No relevant prior studies available. FINDINGS: Lung bases: Unremarkable. No mass. No consolidation. ABDOMEN: Liver: Unremarkable. No mass. Gallbladder and bile ducts: Unremarkable. No calcified stones. No ductal dilation. Pancreas: Unremarkable. No mass. No ductal dilation. Spleen: Calcified splenic granuloma. Adrenals: Unremarkable. No mass. Kidneys and ureters: Unremarkable. No solid mass. No hydronephrosis. Stomach and bowel: Diverticulosis, without acute diverticulitis. No small bowel obstruction. No free intraperitoneal air. PELVIS: Appendix: Normal appendix. Bladder: Unremarkable. No mass. Reproductive: Unremarkable as visualized. ABDOMEN and PELVIS: Intraperitoneal space: Unremarkable. No free air. No significant fluid collection. Bones/joints: Degenerative changes of the spine. No acute fracture. No dislocation. Soft tissues: Unremarkable. Vasculature: Atherosclerotic changes of the aorta. No abdominal aortic aneurysm. Lymph nodes: Unremarkable. No enlarged lymph nodes. IMPRESSION: No acute findings in the abdomen or pelvis. Electronically signed by: Abhi Hinojosa MD 07/03/23 22:58 PM Code Status & VTE Plan VTE Prophylaxis Plan VTE Prophylaxis will be ordered: Yes PG Care Time/CCT Total # of Minutes Spent Total Time Spent with Patient: Total time spent is greater than 50% in coordination of care (as documented) at patient's floor/unit and/or counseling patient: Coding Level of Care Code 81999 INT INP/OBS CARE MIN Diagnoses Weakness R53.1
[2023-07-04] MEDS ORDERED: ACETAMINOPHEN 325 MG TAB PO PRN (05:41)
[2023-07-04] MEDS ORDERED: POLYETHYLENE (MIRALAX) 17 GM PACK PO PRN (05:41)
[2023-07-04] MEDS: SODIUM CHLORIDE 0.9% 1,000 ML IV SCH (06:14)
[2023-07-04 06:47] LABS: Magnesium 1.7 mg/dl (1.7-2.4); Phosphorus 3.9 mg/dl (2.5-4.9)
--- NOTE | 2023-07-04 07:49 | Hospitalist Progress Note ---
Date of Service July 04, 2023 Assessment & Plan (1) Weakness: Plan: Etiology of weakness unclear. He had positive blood cultures last admission thought to be skin contaminant (several species CONS, repeat set negative) temporarily was on IV vancomycin. He has persistently elevated inflammatory markers with CRP 4-->7 and ESR today 71. 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 At this point it is important to evaluate for CONS endocarditis -blood cultures drawn in ED 07/03 - pending - watch off antibiotics -repeat blood cultures 2 sets this evening -Check Mg and Po4 --> both normal -replaced mild hypokalemia this am -PT/OT -Continue B12/Folate/Thiamine Abnormal UA - some elevation of WBC and leuk esterace - follow up urine culture Anemia - Hct improved from 30 on discharge to 32 then fell to 23.7, 26.4 on recheck. No clinical bleeding. Denies melena BRBPR. Added iron studies. Had EGD last admission but not colonoscopy. Mild bilirubin elevation - 1.4 last night but normalized today at 1.0. AST/ALT/AP normal. CT abdomen with contrast unrevealing. 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 continue indefinite oral thiamine. Esophageal dysphagia - Schatzki's ring dilated with EGD last admission, was able to eat following that, continue PPI. Nutrition improved albumin improved from 3.2 to 3.5 PT/OT, recently discharged back from [facility] to home, did well 2 weeks at home then became very weak over last several days Admission and Anticipated Discharge Date Admission Date: July 04, 2023 Subjective was doing well discharged home from rehab 2 weeks ago, walking in home without walker. last few days suddenly very weak. No focal sx. No cough/CP/abd px/dysuria/joint pain/rashes/fever/chills/sweats. Has been able to eat and drink fairly well since EGD with dilation last month. Weight stable, gained slightly if anything but has not lost. No BRBPR or melena. Physical Exam 2 Physical Exam: PHYSICAL EXAMINATION Last 24h vital signs reviewed, see documentation in flowsheet General: comfortable appearing, no distress HEENT: Normocephalic, atraumatic, pupils round and equal, sclerae anicteric, no conjunctival injection, moist mucus membranes L eye ptosis is his chronic baseline, unchanged Lungs: Normal respiratory effort. Clear to auscultation bilaterally. No RRW Heart: Regular rate and rhythm, no murmurs. No JVD Abdomen: Soft, nontender, nondistended. Bowel sounds present. Extremities: Warm, dry, well-perfused. No extremity edema. Sarcopenia. Neuro: Alert and oriented x 4, face symmetric, moves 4 extremities well Psych: Normal affect and behavior Results & Data Results & Data Vital Signs (Past 12 Hours) Vital Signs Temp Pulse Pulse Pulse Resp BP BP 07/04/23 05:55 07/04/23 05:41 36.6 C 83 18 141/86 H 07/04/23 04:35 07/04/23 04:16 73 07/04/23 02:03 102 H 166/104 H 07/04/23 01:00 89 22 123/87 07/04/23 01:00 79 20 128/87 07/04/23 00:27 89 07/04/23 00:00 86 22 137/83 07/03/23 23:30 105 H 24 166/108 H 07/03/23 23:00 86 16 07/03/23 21:00 93 H 21 154/102 H 07/03/23 20:48 101 H 07/03/23 20:43 154/102 H Pulse Ox O2 Del Method 07/04/23 05:55 Room Air 07/04/23 05:41 98 Room Air 07/04/23 04:35 Room Air 07/04/23 04:16 07/04/23 02:03 07/04/23 01:00 99 07/04/23 01:00 98 Room Air 07/04/23 00:27 07/04/23 00:00 98 07/03/23 23:30 96 07/03/23 23:00 98 Room Air 07/03/23 21:00 96 Room Air 07/03/23 20:48 07/03/23 20:43 Laboratory Results 07/04/23 12:54 07/04/23 08:12 Diagnostic Findings Chest X-Ray 07/03/23 16:14 XR chest 1V not portable CLINICAL HISTORY: Weakness TECHNIQUE: Single frontal radiograph of the chest was obtained. Comparison: None available at the time of this dictation. FINDINGS: No lines and tubes are seen. The cardiomediastinal silhouette is normal. The lungs are clear. No evidence of pleural effusion or pneumothorax. IMPRESSION: No acute chest disease. ACT 112: Negative or not required by law. Electronically signed by: Jerome Mendoza M.D. 07/03/2023 4:55 PM Abdomen/Pelvis CT 07/03/23 21:21 Exam(s): CT ABDOMEN + PELVIS With Contrast IV Amt: 83 ml optiray 320 EXAM: CT Abdomen and Pelvis With Intravenous Contrast CLINICAL HISTORY: Reason for exam: LLQ pain. TECHNIQUE: Axial computed tomography images of the abdomen and pelvis with intravenous contrast. CTDI is 15.66 mGy and DLP is 748.61 mGy-cm. Automated exposure control was utilized for the study. A dose lowering technique was utilized adhering to the principles of ALARA. CONTRAST: Patient received 83 ml optiray 320 of IV contrast COMPARISON: No relevant prior studies available. FINDINGS: Lung bases: Unremarkable. No mass. No consolidation. ABDOMEN: Liver: Unremarkable. No mass. Gallbladder and bile ducts: Unremarkable. No calcified stones. No ductal dilation. Pancreas: Unremarkable. No mass. No ductal dilation. Spleen: Calcified splenic granuloma. Adrenals: Unremarkable. No mass. Kidneys and ureters: Unremarkable. No solid mass. No hydronephrosis. Stomach and bowel: Diverticulosis, without acute diverticulitis. No small bowel obstruction. No free intraperitoneal air. PELVIS: Appendix: Normal appendix. Bladder: Unremarkable. No mass. Reproductive: Unremarkable as visualized. ABDOMEN and PELVIS: Intraperitoneal space: Unremarkable. No free air. No significant fluid collection. Bones/joints: Degenerative changes of the spine. No acute fracture. No dislocation. Soft tissues: Unremarkable. Vasculature: Atherosclerotic changes of the aorta. No abdominal aortic aneurysm. Lymph nodes: Unremarkable. No enlarged lymph nodes. IMPRESSION: No acute findings in the abdomen or pelvis. Electronically signed by: Abhi Hinojosa MD 07/03/23 22:58 PM PG Care Time/CCT Total # of Minutes Spent Total Time Spent with Patient: Total time spent is greater than 50% in coordination of care (as documented) at patient's floor/unit and/or counseling patient: Coding Level of Care Code 62762 SUB INP/OBS CARE 3/50MIN Diagnoses Weakness R53.1
[2023-07-04 08:34] LABS: Basophils # (auto) 0.02 K/uL (0.00-0.20); Basophils % (auto) 0.4 %; Eosinophils # (auto) 0.09 K/uL (0.00-0.50); Eosinophils % (auto) 1.9 %; Hematocrit (blood only) 23.7 % (42.0-52.0); Hemoglobin 7.9 g/dl (14.0-18.0); Immature Granulocytes # (auto) 0.04 K/uL (0.01-0.20); Immature Granulocytes % (auto) 0.8 %; Mean Corpuscular Hemoglobin 35.1 pg (25.0-34.0); Mean Corpuscular Hgb Conc 33.3 g/dL (32.0-36.0); Mean Corpuscular Volume 105.3 fL (80.0-100.0); Mean Platelet Volume 10.1 fL (9.4-12.4); Monocytes # (auto) 0.62 K/uL (0.11-0.59); Neutrophils # (auto) 2.99 K/uL (1.40-6.50); Neutrophils % (auto) 62.9 %; Platelet Count 177 K/uL (130-400); RDW Standard Deviation 50.4 fL (36.4-46.3); Red Blood Count 2.25 M/uL (4.70-6.10); White Blood Count 4.76 K/ul (4.8-10.8)
[2023-07-04] MEDS ORDERED: ENOXAPARIN INJ 40 MG/0.4 ML SYR SQ SCH (09:00)
[2023-07-04 09:04] LABS: Potassium 3.3 mmol/L (3.5-5.1)
[2023-07-04 09:05] LABS: Albumin Globulin Ratio 0.8 (0.9-2); Albumin Level 2.8 gm/dl (3.4-5.0); BUN Creatinine Ratio 24.6 (10-20); C Reactive Protein 7.4 mg/dl (0-0.5); Calcium 8.3 mg/dl (8.6-10.3); Creatinine Clr Calc Pharmacy 88.1 ml/min; Est GFR (African American) 107.8 ml/min; Globulin 3.3 gm/dl (2.5-4.0); Total Protein 6.1 gm/dl (6.0-8.3)
[2023-07-04] MEDS: ESCITALOPRAM OXALATE 10 MG TAB PO SCH (10:54)
[2023-07-04] MEDS: CYANOCOBALAMIN (B-12) 500 MCG TABLET PO SCH (10:54)
[2023-07-04] MEDS: FOLIC ACID 1 MG TAB PO SCH (10:54)
[2023-07-04] MEDS: THIAMINE HCL 100 MG TAB PO SCH (10:55)
[2023-07-04] MEDS: PANTOprazole 40 MG TAB PO SCH (10:55)
[2023-07-04] MEDS ORDERED: POTASSIUM CHLORIDE 20 MEQ/15 ML UDC PO STA (12:54)
[2023-07-04 13:10] LABS: Hematocrit (blood only) 26.4 % (42.0-52.0); Hemoglobin 8.7 g/dl (14.0-18.0)
--- NOTE | 2023-07-04 14:31 | Electrocardiogram Report ---
Test Reason : Blood Pressure : / mmHG Vent. Rate : 110 BPM Atrial Rate : 110 BPM P-R Int : 156 ms QRS Dur : 074 ms QT Int : 356 ms P-R-T Axes : 078 -39 063 degrees QTc Int : 481 ms Sinus tachycardia with occasional , and consecutive Premature ventricular complexes Left axis deviation Nonspecific ST and T wave abnormality Abnormal ECG When compared with ECG of 04-JUN-2023 14:26, Premature ventricular complexes are now Present Nonspecific T wave abnormality, worse in Lateral leads Confirmed by Dale Altamirano ([id number]) on 07/04/2023 2:30:40 PM Referred By: REFERRED SELF Confirmed By:Drew Altamirano
[2023-07-04 21:15] LABS: Ferritin 328.4 ng/ml (8-388)
[2023-07-05] MEDS: PANTOprazole 40 MG TAB PO SCH (07:30)
[2023-07-05 07:53] LABS: Hematocrit (blood only) 25.3 % (42.0-52.0); Hemoglobin 8.5 g/dl (14.0-18.0); Mean Corpuscular Hemoglobin 34.7 pg (25.0-34.0); Mean Corpuscular Hgb Conc 33.6 g/dL (32.0-36.0); Mean Corpuscular Volume 103.3 fL (80.0-100.0); Mean Platelet Volume 10.7 fL (9.4-12.4); Platelet Count 218 K/uL (130-400); RDW Coefficient of Variation 12.7 % (11.5-14.5); RDW Standard Deviation 47.4 fL (36.4-46.3); Red Blood Count 2.45 M/uL (4.70-6.10); White Blood Count 6.63 K/ul (4.8-10.8)
[2023-07-05 07:59] LABS: BUN Creatinine Ratio 20.6 (10-20); Bilirubin Direct 0.2 mg/dl (0-0.2); Bilirubin,Total 0.9 mg/dl (0.2-1.0); Calcium 8.6 mg/dl (8.6-10.3); Creatinine Clr Calc Pharmacy 85.3 ml/min; Est GFR (African American) 106.4 ml/min; Est GFR (Non-African American) 91.8 ml/min; Potassium 3.8 mmol/L (3.5-5.1); Total Protein 6.5 gm/dl (6.0-8.3)
[2023-07-05] MEDS ORDERED: ONDANSETRON INJ 2 MG/ML 2 ML VIAL IV PRN (09:13)
--- NOTE | 2023-07-05 09:50 | Hospitalist Progress Note ---
Date of Service July 05, 2023 Assessment & Plan (1) Abdominal pain: Plan: Nausea and abdominal pain reported AM of 07/05 - nausea resolved with antiemetic, denied abdominal pain x 2 visits for me, poor appetite all day -CBC CMP this AM was unremarkable no leukocytosis -added on lipase - normal -obtained EKG which is abnormal - I reviwed the tracing: sinus tachy, pac pvc, septal Qs V1 V2 - on prior tracing only V1 - this could be lead placement -HS trop added to AM labs and x1 now (both resulted negative). was normal on admission -abdominal exam benign x 2 today (2) Weakness: Plan: Etiology of weakness unclear. He had positive blood cultures last admission thought to be skin contaminant (several species CONS, repeat set negative) temporarily was on IV vancomycin. He has persistently elevated inflammatory markers with CRP 4-->7 and ESR today 71. 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 At this point it is important to evaluate for CONS endocarditis -blood cultures drawn in ED 07/03 - NGTD -repeat blood cultures 2 sets 07/05 - pending -Check Mg and Po4 --> both normal -replaced mild hypokalemia -PT/OT -Continue B12/Folate/Thiamine 07/05 given that he looks clinically worse today I will start empiric vancomycin pending his blood cultures above (4 sets drawn while off ABX). Will recheck CRP in a few days see if improved -if appearing septic would broaden - add cephalosporin however I have not identified source of infection Abnormal UA - some elevation of WBC and leuk esterace - urine culture resulted negative Anemia - Hct improved from 30 on discharge to 32 then fell to 23.7, 26.4 on recheck. No clinical bleeding. Denies melena BRBPR. Added iron studies - mildly low serum iron at 30. Had EGD last admission but not colonoscopy. -Hct stable at 25 today -ferrous sulfate q48h ordered Mild bilirubin elevation - 1.4 admission--> 1.0. AST/ALT/AP normal. CT abdomen with contrast unrevealing. 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 continue indefinite oral t hiamine. Mentation improved compared to last admission but cognition not entirely normal. Continues to evidence poor insight and judgment and at times is forgetful and agitated Esophageal dysphagia - Schatzki's ring dilated with EGD last admission, was able to eat following that, continue PPI. Nutrition improved albumin improved from 3.2 to 3.5 -consulted acquisition lead PT/OT, recently discharged back from [facility] to home, did well 2 weeks at home then became very weak over last several days Admission and Anticipated Discharge Date Admission Date: July 04, 2023 Subjective nausea and low appetite this morning, didn't eat breakfast. For me denied abdominal pain. Seen 2nd time in afternoon and sister visiting, was mildly agitated about going home but calmed. Still no appetite no abd pain did not eat lunch. Physical Exam Physical Exam: PHYSICAL EXAMINATION Last 24h vital signs reviewed, see documentation in flowsheet General: looks worse, appears weaker HEENT: Normocephalic, atraumatic, pupils round and equal, sclerae anicteric, no conjunctival injection, moist mucus membranes L eye ptosis is his chronic baseline, unchanged Lungs: Normal respiratory effort. Clear to auscultation bilaterally. No RRW Heart: Regular rate and rhythm, no murmurs. No JVD Abdomen: scaphoid, soft, no tenderness no RUQ tenderness no rrg +BT Extremities: Warm, dry, well-perfused. No extremity edema. Sarcopenia. Neuro: Alert and oriented x hospital but poor insight and judgment and seems forgetful, face symmetric, moves 4 extremities well Psych: withdrawn affect and mildly agitated behavior in afternoon Results & Data Results & Data Vital Signs (Past 12 Hours) Vital Signs Temp Pulse Resp BP Pulse Ox O2 Del Method 07/05/23 07:23 36.8 C 96 H 18 163/89 H 97 Room Air Laboratory Results 07/05/23 07/04/23 Range/Units 06:49 19:33 WBC 6.63 (4.8-10.8) K/ul RBC 2.45 L (4.70-6.10) M/uL Hgb 8.5 L (14.0-18.0) g/dl Hct 25.3 L (42.0-52.0) % MCV 103.3 H (80.0-100.0) fL MCH 34.7 H (25.0-34.0) pg MCHC 33.6 (32.0-36.0) g/dL RDW Std Deviation 47.4 H (36.4-46.3) fL RDW Coeff of Shayan 12.7 (11.5-14.5) % Plt Count 218 (130-400) K/uL MPV 10.7 (9.4-12.4) fL Sodium 134 L (136-145) mmol/L Potassium 3.8 (3.5-5.1) mmol/L Chloride 103 (98-107) mmol/L Carbon Dioxide 24 (21-32) mmol/L Anion Gap 7 (3-11) BUN 13 (6-23) mg/dl Creatinine 0.63 (0.6-1.4) mg/dl Est Cr Clr Drug Dosing 85.3 ml/min Est GFR ( Amer) 106.4 ml/min Est GFR (Non-Af Amer) 91.8 ml/min BUN/Creatinine Ratio 20.6 H (10-20) Glucose 96 (70-99(Fasting)) mg/dl Calcium 8.6 (8.6-10.3) mg/dl Iron 30 L (35-175) mcg/dl Transferrin 133 L (200-360) mg/dl Ferritin 328.4 (8-388) ng/ml Total Bilirubin 0.9 (0.2-1.0) mg/dl Direct Bilirubin 0.2 (0-0.2) mg/dl AST 34 (13-39) U/L ALT 16 (7-52) U/L Alkaline Phosphatase 88 (34-104) U/L Troponin I High Sens 6.0 (0-20) pg/ml Total Protein 6.5 (6.0-8.3) gm/dl Albumin 3.0 L (3.4-5.0) gm/dl Lipase 17 (11-82) U/L PG Care Time/CCT Total # of Minutes Spent Total Time Spent with Patient: Total time spent is greater than 50% in coordination of care (as documented) at patient's floor/unit and/or counseling patient: Coding Level of Care Code 59073 SUB INP/OBS CARE 3/50MIN Diagnoses Abdominal pain R10.9 Weakness R53.1
[2023-07-05] MEDS: THIAMINE HCL 100 MG TAB PO SCH (11:32)
[2023-07-05] MEDS: CYANOCOBALAMIN (B-12) 500 MCG TABLET PO SCH (11:32)
[2023-07-05] MEDS: FERROUS SULFATE 325 MG TAB PO SCH (11:32)
[2023-07-05] MEDS: ESCITALOPRAM OXALATE 10 MG TAB PO SCH (11:32)
[2023-07-05] MEDS: FOLIC ACID 1 MG TAB PO SCH (11:32)
--- NOTE | 2023-07-05 12:32 | Electrocardiogram Report ---
Test Reason : Blood Pressure : / mmHG Vent. Rate : 111 BPM Atrial Rate : 111 BPM P-R Int : 150 ms QRS Dur : 080 ms QT Int : 336 ms P-R-T Axes : 074 -45 075 degrees QTc Int : 456 ms Poor data quality, interpretation may be adversely affected Sinus tachycardia with frequent Premature ventricular complexes Left axis deviation Septal infarct , age undetermined Abnormal ECG When compared with ECG of 03-JUL-2023 17:13, Septal infarct is now Present Nonspecific T wave abnormality no longer evident in Lateral leads Confirmed by Venkatesh Hope ([id number]) on 07/05/2023 12:31:29 PM Referred By: REFERRED SELF Confirmed By:Venkatesh Hope
[2023-07-05] MEDS: LACTATED RINGER'S 1,000 ML IV SCH ×2 (13:53→21:21)
[2023-07-05] MEDS ORDERED: VANCOMYCIN CONSULT ACTIVE PRN ×2 (15:22)
[2023-07-05] MEDS ORDERED: VANCOMYCIN HCL 1,500 MG in SODIUM CHLORIDE 0.9% 500 ML IV ONE (16:00)
--- NOTE | 2023-07-05 16:08 | Pharmacy Report ---
Pharmacy PK ABX Note - Date of Service July 05, 2023 - Assessment and Plan Assessment 82 year old M receiving vancomycin for treatment of possible bacteremia/rule out endocarditis. Blood cultures (+) 06/04 for CoNS X 2 ([employer] (+) MRSE), deemed contaminant. Repeat cultures negative to date (06/05, 07/03). Renal function stable. Day #2 of antimicrobial therapy. Plan Vancomycin * Loading dose: 1500 mg IV x 1 * Maintenance dose: 1500 mg IV every 180 hours * Regimen is predicted to achieve target AUC/SIRENA of 400-600 mg/L.hr * Random level tomorrow AM Pharmacy will continue to follow and will adjust dose/frequency as necessary. Thank you. Pharmacy has transitioned to AUC monitoring for vancomycin. AUC/SIRENA is the preferred PK/PD target and is associated with decreased risk of nephrotoxicity compared to traditional trough targets.
[2023-07-06] MEDS: VANCOMYCIN HCL 1,500 MG in SODIUM CHLORIDE 0.9% 500 ML IV SCH ×2 (01:50→20:55)
[2023-07-06] MEDS: LACTATED RINGER'S 1,000 ML IV SCH ×2 (05:16→12:48)
[2023-07-06 07:39] LABS: Hemoglobin 7.8 g/dl (14.0-18.0); Mean Corpuscular Hemoglobin 34.5 pg (25.0-34.0); Mean Corpuscular Hgb Conc 33.9 g/dL (32.0-36.0); Mean Corpuscular Volume 101.8 fL (80.0-100.0); Mean Platelet Volume 10.4 fL (9.4-12.4); Platelet Count 184 K/uL (130-400); RDW Coefficient of Variation 12.7 % (11.5-14.5); RDW Standard Deviation 47.3 fL (36.4-46.3); Red Blood Count 2.26 M/uL (4.70-6.10); White Blood Count 7.28 K/ul (4.8-10.8)
[2023-07-06 08:16] LABS: Albumin Globulin Ratio 0.8 (0.9-2); Albumin Level 2.6 gm/dl (3.4-5.0); BUN Creatinine Ratio 15.8 (10-20); Bilirubin,Total 1.2 mg/dl (0.2-1.0); Calcium 7.9 mg/dl (8.6-10.3); Creatinine Clr Calc Pharmacy 94.3 ml/min; Est GFR (African American) 110.8 ml/min; Est GFR (Non-African American) 95.6 ml/min; Globulin 3.2 gm/dl (2.5-4.0); Potassium 3.5 mmol/L (3.5-5.1); Total Protein 5.8 gm/dl (6.0-8.3)
[2023-07-06] MEDS: CYANOCOBALAMIN (B-12) 500 MCG TABLET PO SCH (08:17)
[2023-07-06] MEDS: ESCITALOPRAM OXALATE 10 MG TAB PO SCH (08:17)
[2023-07-06] MEDS: FOLIC ACID 1 MG TAB PO SCH (08:17)
[2023-07-06] MEDS: THIAMINE HCL 100 MG TAB PO SCH (08:17)
[2023-07-06] MEDS: PANTOprazole 40 MG TAB PO SCH (08:18)
[2023-07-06] MEDS ORDERED: ARTIFICIAL TEARS OPB PRN (13:44)
[2023-07-06] MEDS: FLUTICASONE PROPIONATE NA SPR 16 GM BTL SCH (15:07)
[2023-07-06] MEDS: OXYMETAZOLINE 0.05% 30 ML BTL SCH ×2 (15:07→20:55)
--- NOTE | 2023-07-06 17:43 | Hospitalist Progress Note ---
Date of Service July 06, 2023 Assessment & Plan (1) Abdominal pain: Plan: Nausea and abdominal pain reported AM of 07/05 - nausea resolved with antiemetic, denied abdominal pain x 2 visits for me, poor appetite all day. Had contrast abdominal CT a month ago that was unremarkable -CBC CMP lipase were normal. HS-trops negative yesterday. Has minimal intermittent bili elevation -nausea resolved and no pain but refusing to eat stating poor appetite. His says he was eating ok at [facility] and until a few days prior to admission. -abdominal exam benign (2) Weakness: Plan: Etiology of weakness unclear. He had positive blood cultures last admission thought to be skin contaminant (several species CONS, repeat set negative) temporarily was on IV vancomycin. He has persistently elevated inflammatory markers with CRP 4-->7 and ESR 71. 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 At this point it is important to evaluate for CONS endocarditis -blood cultures drawn in ED 07/03 - NGTD -repeat blood cultures 2 sets 07/05 - NGTG -Check Mg and Po4 --> both normal -replaced mild hypokalemia -PT/OT -Continue B12/Folate/Thiamine 07/05 given that he looked clinically worse started empiric vancomycin pending his blood cultures above (4 sets drawn while off ABX). Will recheck CRP in a few days see if improved -if appearing septic would broaden - add cephalosporin however I have not identified source of infection -looks better today but not eating -only complaint is L frontal headache and nasal/sinus congestion. Ordered flonase, afrin x 3d and sinus CT -consider rheumatologic illness to explain his weakness, elevated inflammatory markers, NEAL pending, consider trial of prednisone for PMR if blood cx remain negative. L frontal headache seems chronic and not too suspicious for GCA, his L eye though has chronic ptosis has intact vision Abnormal UA - some elevation of WBC and leuk esterace - urine culture resulted negative Anemia - Hct improved from 30 on discharge to 32 then fell to 23.7, 26.4 on recheck. No clinical bleeding. Denies melena BRBPR. Added iron studies - mildly low serum iron at 30. Had EGD last admission but not colonoscopy. -Hct stable at 25 -ferrous sulfate q48h ordered Mild bilirubin elevation - 1.4 admission--> 1.0. AST/ALT/AP normal. CT abdomen with contrast unrevealing. 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 continue indefinite oral th iamine. Mentation improved compared to last admission but cognition not normal. Continues to evidence poor insight and judgment and at times is forgetful and agitated, can be very oppositional -suspect dementia - requested cognitive eval from Esophageal dysphagia - Schatzki's ring dilated with EGD last admission, was able to eat following that, continue PPI. Nutrition improved albumin improved from 3.2 to 3.5 -consulted gameplay programmer PT/OT, [facility], did well 2 weeks at home then became very weak over last several days Admission and Anticipated Discharge Date Admission Date: July 06, 2023 Subjective I saw Mr. Alvarez early this afternoon his family is in the room including his sister and a daughter He does seem a little bit better today more interactive and verbal and not agitated however he continues to have no appetite and is very resistant to eating No abdominal pain no complaint of dysphagia drinking coffee His complaint today is left frontal headache, he says this is chronic and longstanding present behind his left eye he has nasal stuffiness he says usually his Nasonex every day at home and this helps relieve this headache. No URI symptoms like cough or sore throat Physical Exam Physical Exam: PHYSICAL EXAMINATION Last 24h vital signs reviewed, see documentation in flowsheet General: looks better than yesterday but not as good as Hospital day 1, sitting up in bed not eating off his lunch tray drinking coffee HEENT: Normocephalic, atraumatic, pupils round and equal, sclerae anicteric, no conjunctival injection, moist mucus membranes L eye ptosis is his chronic baseline, unchanged Lungs: Normal respiratory effort. Clear to auscultation bilaterally. No RRW Heart: Regular rate and rhythm, no murmurs. No JVD Abdomen: scaphoid, soft, no tenderness no RUQ tenderness no rrg +BT -unchanged Extremities: Warm, dry, well-perfused. No extremity edema. Sarcopenia. Neuro: Alert and oriented x hospital but poor insight and judgment nal, face symmetric, moves 4 extremities well Psych: withdrawn affect and no longer agitated but a bit oppositional Results & Data Results & Data Vital Signs (Past 12 Hours) Vital Signs Temp Pulse Resp BP Pulse Ox O2 Del Method 07/06/23 15:53 37.5 C 93 H 16 142/85 H 98 Room Air 07/06/23 07:45 Room Air 07/06/23 07:30 37.0 C 99 H 20 132/77 97 Room Air Laboratory Results 07/06/23 Range/Units 06:52 WBC 7.28 (4.8-10.8) K/ul RBC 2.26 L (4.70-6.10) M/uL Hgb 7.8 L (14.0-18.0) g/dl Hct 23.0 L (42.0-52.0) % MCV 101.8 H (80.0-100.0) fL MCH 34.5 H (25.0-34.0) pg MCHC 33.9 (32.0-36.0) g/dL RDW Std Deviation 47.3 H (36.4-46.3) fL RDW Coeff of Shayan 12.7 (11.5-14.5) % Plt Count 184 (130-400) K/uL MPV 10.4 (9.4-12.4) fL Sodium 133 L (136-145) mmol/L Potassium 3.5 (3.5-5.1) mmol/L Chloride 103 (98-107) mmol/L Carbon Dioxide 24 (21-32) mmol/L Anion Gap 6 (3-11) BUN 9 (6-23) mg/dl Creatinine 0.57 L (0.6-1.4) mg/dl Est Cr Clr Drug Dosing 94.3 ml/min Est GFR ( Amer) 110.8 ml/min Est GFR (Non-Af Amer) 95.6 ml/min BUN/Creatinine Ratio 15.8 (10-20) Glucose 91 (70-99(Fasting)) mg/dl Calcium 7.9 L (8.6-10.3) mg/dl Total Bilirubin 1.2 H (0.2-1.0) mg/dl AST 23 (13-39) U/L ALT 11 (7-52) U/L Alkaline Phosphatase 80 (34-104) U/L Total Protein 5.8 L (6.0-8.3) gm/dl Albumin 2.6 L (3.4-5.0) gm/dl Globulin 3.2 (2.5-4.0) gm/dl Albumin/Globulin Ratio 0.8 L (0.9-2) NEAL Screen Pending PG Care Time/CCT Total # of Minutes Spent Total Time Spent with Patient: Total time spent is greater than 50% in coordination of care (as documented) at patient's floor/unit and/or counseling patient: Coding Level of Care Code 15018 SUB INP/OBS CARE 3/50MIN Diagnoses Abdominal pain R10.9 Weakness R53.1
--- NOTE | 2023-07-06 22:11 | CT Scan Report ---
Exam(s): CT SINUSES EXAM: CT Maxillofacial Sinuses Without Intravenous Contrast CLINICAL HISTORY: Reason for exam: frontal headache, infectious symptoms, sinusitis. TECHNIQUE: Computed tomography images of the maxillofacial sinuses without intravenous contrast. Automated exposure control was utilized for the study. A dose lowering technique was utilized adhering to the principles of ALARA. COMPARISON: No relevant prior studies available. FINDINGS: Maxillary sinuses: Unremarkable. No air-fluid levels. Other sinuses: There is mucosal thickening seen in the right frontal, right sphenoidal and right ethmoidal sinuses there is a 3.1 cm diameter oval density 8 causing expansion of the right upper nasal cavity and right ethmoidal sinus. No air-fluid levels. Mastoid air cells: There is partial opacification of bilateral mastoid air cells. Bones/joints: No acute fracture. IMPRESSION: 1. CT findings are suggestive of sinusitis and mastoiditis. 2. 3.1 cm oval density in the right nasal cavity and right ethmoidal sinus could be from mucous retention cyst or a polyp Electronically signed by: Capo Gallardo MD 07/06/23 22:10 PM
[2023-07-07 07:05] LABS: C Reactive Protein 10.31 mg/dl (0-0.5); Creatinine Clr Calc Pharmacy 91.1 ml/min; Est GFR (African American) 109.3 ml/min; Est GFR (Non-African American) 94.3 ml/min
[2023-07-07] MEDS: FLUTICASONE PROPIONATE NA SPR 16 GM BTL SCH (08:12)
[2023-07-07] MEDS: CYANOCOBALAMIN (B-12) 500 MCG TABLET PO SCH (08:13)
[2023-07-07] MEDS: FOLIC ACID 1 MG TAB PO SCH (08:13)
[2023-07-07] MEDS: OXYMETAZOLINE 0.05% 30 ML BTL SCH ×2 (08:13→21:07)
[2023-07-07] MEDS: THIAMINE HCL 100 MG TAB PO SCH (08:13)
[2023-07-07] MEDS: FERROUS SULFATE 325 MG TAB PO SCH (08:13)
[2023-07-07] MEDS: PANTOprazole 40 MG TAB PO SCH (08:13)
[2023-07-07] MEDS: CEROVITE ADV FORMULA TAB PO SCH (08:13)
[2023-07-07] MEDS: ESCITALOPRAM OXALATE 10 MG TAB PO SCH (08:13)
[2023-07-07] MEDS ORDERED: AMPICILLIN SOD/SULBACTAM SOD 3 GM VIAL IV SCH (08:15)
[2023-07-07] MEDS: UNASYN 3000MG / NS q6h IV SCH ×3 (09:45→21:07)
[2023-07-07] MEDS: CYANOCOBALAMIN 1000 MCG/ML VIAL IM SCH (09:46)
--- NOTE | 2023-07-07 19:24 | Hospitalist Progress Note ---
Date of Service July 07, 2023 Assessment & Plan (1) Acute sinusitis: Plan: Chronically ill gentleman who I saw a month ago when admitted for weakness and acute encephalopathy and severe protein calorie malnutrition. He had basically not been eating for months because of dysphagia. He had EGD and was found to have Schatzki's ring which was dilated, he was started on PPI. Following that he had good oral intake. He was treated for Warnicke encephalopathy with course of IV thiamine with improvement in his mental status, thiamine resulted after discharge and was low. He discharged to acute rehab at [facility] and initially did well went home after about 2 weeks and did well at home for 2 weeks until several days prior to admission when he became extremely weak again could not walk or stand and was brought to the hospital. Extensive evaluation has been u nrevealing for specific cause of his weakness and failure to thrive. Over the weekend he developed nausea and lost his appetite. Nausea seems to have resolved and he has no abdominal pain however he continues to be weak withdrawn and refusing to eat. The only focal symptom he complained of was left sided headache/sinus pain/congestion which she told me about yesterday. He chronically uses Nasonex and gets left frontal headaches not infrequently. He has an persistently elevated inflammatory markers with rising CRP and ESR elevated at 70 -Noncontrast head CT from last admission reviewed no sinus disease was noted, no acute finding -Obtained sinus CT 07/06, shows acute sinusitis and mastoiditis. On physical examination he has no tenderness or erythema in the mastoid region -Started trial of Unasyn for sinusitis and mastoiditis to see if this will improve his overall status. Transition to Augmentin when taking good p.o. -Continue Flonase and Afrin for 3 days, he states left frontal headache has improved/resolved but he is still not eating See below for other investigations (2) Abdominal pain: Plan: Nausea and abdominal pain reported by RN AM of 07/05 - nausea resolved with antiemetic, denied abdominal pain x 2 visits for me, poor appetite all day. Had contrast abdominal CT a month ago that was unremarkable -CBC CMP lipase were normal. HS-trops negative. Has minimal intermittent bili elevation -nausea resolved and no pain but refusing to eat stating poor appetite. His says he was eating ok at [facility] and until a few days prior to admission. -abdominal exam benign -Did not improve while on IV vancomycin, which was discontinued because blood cultures have stayed negative, see above regarding trial of treatment for sinusitis (3) Weakness: Plan: Etiology of weakness and generally doing poorly unclear. He had positive blood cultures last admission thought to be skin contaminant (several species CONS, repeat set negative) temporarily was on IV vancomycin. He has persistently elevated inflammatory markers with CRP 4-->7-->10 and ESR 71. 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 On this readmission it was important to evaluate for CONS endocarditis -2 sets blood cultures drawn in ED 07/03 - NGTD -repeat blood cultures 2 sets 07/05 - NGTG -Check Mg and Po4 --> both normal -replaced mild hypokalemia -PT/OT -Continue B12/Folate/Thiamine 07/05 given that he looked clinically worse started empiric vancomycin pending his blood cultures above (4 sets drawn while off ABX). Neither CRP nor clinical status improved on vancomycin, stopped because cultures have been negative so far -consider rheumatologic illness to explain his weakness, elevated inflammatory markers, NEAL pending, consider trial of prednisone for PMR if blood cx remain negative and/or not responsive to trial of Augmentin. L frontal headache seems chronic related to sinusitis and not too suspicious for GCA, his L eye though has chronic ptosis has intact vision, examined today and both temporal artery pulses are intact and nontender, denies any complaints compatible with jaw claudication -Had thiamine and folate deficiency, possibly B12 deficiency. Consider other nutritional deficiencies to explain his anemia and failure to thrive ordered serum copper, ordered vitamin C level for tomorrow a.m. after holding multivitamin and fruits. Overall prognosis extremely guarded. Has had Ct head, Chest/abd/pelvis. EGD. 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 Mentation improved compared to presentation on last admission but cognition not normal. Continues to evidence poor insight and judgment and at times is forgetful and agitated, can be very oppositional -suspect dementia - requested cognitive eval from [facility] -continue indefinite oral thiamine (8) Anemia: Plan: Anemia - Hct improved from 30 on discharge to 32 then fell to 23.7, 26.4 on recheck. No clinical bleeding. Denies melena BRBPR. Added iron studies - mildly low serum iron at 30. Had EGD last admission but not colonoscopy. -Hct stable at 25 -ferrous sulfate q48h ordered -Needs to have outpatient colonoscopy expedited if he improves enough to tolerate it -B12 is low normal. Ordered MMA which is pending. Meantime started course of B12 IM injections on 07/07 (9) Dysphagia: Plan: Esophageal dysphagia - Schatzki's ring dilated with EGD last admission, was able to eat following that, continue PPI. Nutrition improved albumin improved from 3.2 to 3.5 (10) Severe protein-calorie malnutrition: Plan: -consulted sock drier (11) Generalized weakness: Plan Abnormal UA - some elevation of WBC and leuk esterace - urine culture resulted negative Mild bilirubin elevation - 1.4 admission--> 1.0. AST/ALT/AP normal. CT abdomen with contrast unrevealing. -CMP stable, bili normal Too weak to return home right now and not eating last 2-3 days -ordered gentle IV fluids PT/OT ordered I have updated his in the room daily she is there in early afternoons Admission and Anticipated Discharge Date Admission Date: July 06, 2023 Physical Exam Physical Exam: PHYSICAL EXAMINATION Last 24h vital signs reviewed, see documentation in flowsheet General: looks better than yesterday but not as good as Hospital day 1, sitting up in bed not eating off his lunch tray drinking coffee HEENT: Normocephalic, atraumatic, pupils round and equal, sclerae anicteric, no conjunctival injection, moist mucus membranes L eye ptosis is his chronic baseline, unchanged Lungs: Normal respiratory effort. Clear to auscultation bilaterally. No RRW Heart: Regular rate and rhythm, no murmurs. No JVD Abdomen: scaphoid, soft, no tenderness no RUQ tenderness no rrg +BT -unchanged Extremities: Warm, dry, well-perfused. No extremity edema. Sarcopenia. Neuro: Alert and oriented x hospital but poor insight and judgment nal, face symmetric, moves 4 extremities well Psych: withdrawn affect and no longer agitated but a bit oppositional Results & Data Results & Data Vital Signs (Past 12 Hours) Vital Signs Temp Pulse Resp BP Pulse Ox O2 Del Method 07/07/23 15:34 36.8 C 98 H 16 119/74 97 Room Air 07/07/23 08:00 Room Air 07/07/23 07:23 36.8 C 95 H 18 154/84 H 98 Room Air PG Care Time/CCT Total # of Minutes Spent Total Time Spent with Patient: Total time spent is greater than 50% in coordination of care (as documented) at patient's floor/unit and/or counseling patient: Coding Level of Care Code 16997 SUB INP/OBS CARE 3/50MIN Diagnoses Acute sinusitis J01.90 Abdominal pain R10.9 Weakness R53.1 ASCVD (arteriosclerotic cardiovascular disease) I25.10 Ptosis of eyelid, left H02.402 Folate deficiency E53.8 Wernicke encephalopathy E51.2 Anemia D64.9 Esophageal dysphagia R13.19 Dysphagia type: esophageal phase Severe protein-calorie malnutrition E43 Generalized weakness R53.1 (9) Dysphagia Dysphagia type: esophageal phase Qualified Code(s): R13.19 - Other dysphagia
[2023-07-07] MEDS: SODIUM CHLORIDE 0.45 % 1,000 ML IV SCH (21:07)
[2023-07-08] MEDS: UNASYN 3000MG / NS q6h IV SCH ×4 (03:55→19:34)
[2023-07-08] MEDS: SODIUM CHLORIDE 0.45 % 1,000 ML IV SCH (08:44)
[2023-07-08] MEDS: FOLIC ACID 1 MG TAB PO SCH (08:44)
[2023-07-08] MEDS: THIAMINE HCL 100 MG TAB PO SCH (08:44)
[2023-07-08] MEDS: PANTOprazole 40 MG TAB PO SCH (08:44)
[2023-07-08] MEDS: ESCITALOPRAM OXALATE 10 MG TAB PO SCH (08:44)
[2023-07-08] MEDS: OXYMETAZOLINE 0.05% 30 ML BTL SCH ×2 (08:45→19:31)
[2023-07-08] MEDS: FLUTICASONE PROPIONATE NA SPR 16 GM BTL SCH (08:45)
[2023-07-08] MEDS: CYANOCOBALAMIN (B-12) 500 MCG TABLET PO SCH (08:45)
[2023-07-08 10:26] LABS: Basophils # (auto) 0.02 K/uL (0.00-0.20); Basophils % (auto) 0.5 %; Eosinophils # (auto) 0.05 K/uL (0.00-0.50); Eosinophils % (auto) 1.3 %; Hematocrit (blood only) 24.3 % (42.0-52.0); Immature Granulocytes # (auto) 0.03 K/uL (0.01-0.20); Immature Granulocytes % (auto) 0.8 %; Lymphocytes % (auto) 15.6 %; Mean Corpuscular Hemoglobin 33.8 pg (25.0-34.0); Mean Corpuscular Hgb Conc 32.9 g/dL (32.0-36.0); Mean Corpuscular Volume 102.5 fL (80.0-100.0); Mean Platelet Volume 10.1 fL (9.4-12.4); Monocytes # (auto) 0.57 K/uL (0.11-0.59); Monocytes % (auto) 14.8 %; Neutrophils # (auto) 2.58 K/uL (1.40-6.50); Platelet Count 199 K/uL (130-400); RDW Coefficient of Variation 12.9 % (11.5-14.5); RDW Standard Deviation 47.5 fL (36.4-46.3); Red Blood Count 2.37 M/uL (4.70-6.10); White Blood Count 3.85 K/ul (4.8-10.8)
[2023-07-08 10:36] LABS: BUN Creatinine Ratio 19.6 (10-20); Calcium 7.9 mg/dl (8.6-10.3); Creatinine Clr Calc Pharmacy 95.9 ml/min; Est GFR (African American) 111.6 ml/min; Est GFR (Non-African American) 96.3 ml/min
[2023-07-08] MEDS ORDERED: POTASSIUM CHLORIDE CRTAB 20 MEQ TABCR PO STA (11:39)
--- NOTE | 2023-07-08 12:06 | Hospitalist Progress Note ---
Date of Service July 08, 2023 Assessment & Plan (1) Acute sinusitis: Plan: day #[address] of [address] uncertain if CT findings represent acute sinusitis vs more so chronic sinus issues reasonable to Rx for 7 days - can transition to PO augmentin tomorrow I don't think the left-sided headache is from the sinuses however (2) Abdominal pain: Plan: resolved he did not report any pain today recent CT a/p without acute pathology recent lipase, u/a, etc without abnormalities (3) Weakness: Plan: Etiology of weakness and generally doing poorly unclear. He has persistently elevated inflammatory markers with CRP 4-->7-->10 and ESR 71. Rachel-CT over his 2 hospital stays without overt cancerous process/pathology. NEAL has returned + in low-titer. Uncertain of significance. Left sided headaches and shoulder muscle weakness/myalgias --> temporal arteritis/PMR overlay?? CPK wnl. Will check lyme tomorrow to be complete. Will obtain MRI brain to assess brain parenchyma, sinuses, etc in light of headaches. Remains leukopenic and anemic with macrocytosis - due to folate def? early MDS? MM? other? peripheral smear today without features of myeloproliferative d/o. No cancer on recent EGD. Has not had colonoscopy. For additional opinions on his case consider rheum & heme/onc consultations. Await MR brain. (4) ASCVD (arteriosclerotic cardiovascular disease): (5) Ptosis of eyelid, left: Plan: Chronic, has been followed by [facility] in [place] and has had several eyelid surgeries Left eye vision is intact (6) Folate deficiency: Plan: Continue oral folate 1mg daily although repeat level is wnl (7) Wernicke encephalopathy: Plan: Wernicke's encephalopathy - thiamine was low at 36 on prior admission Treated with high dose IV thiamine last admission. Continue indefinite oral thiamine I believe his thiamine def is indicative of his overall malnutrition and not the catering driver of his ongoing failure to 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 (8) Anemia: Plan: remains on folate supplementation B12 is low normal. MMA is pending. Prior attending MD started B12 IM injections on 07/07 - continue such for now in light of leukopenia, macrocytosis, neg peripheral smear, etc - bone marrow bx down the line? await SPEP/UPEP alternatively his anemic could simply be due to anemia of chronic disease cbc in am for stability (9) Dysphagia: Plan: Esophageal dysphagia - Schatzki's ring dilated with EGD last admission, was able to eat following that, continue PPI. Nutrition improved albumin improved from 3.2 to 3.5 (10) Severe protein-calorie malnutrition: Plan: severe cachexia with severe weight loss and failure to thrive etiology uncertain as above Plan PT OT updated pt's by phone this evening low potassium - replace DVT proph - change lovenox to heparin 5000 BID Admission and Anticipated Discharge Date Admission Date: July 06, 2023 Subjective patient with ongoing fatigue, weakness, achiness in shoulder region (but not hips), left sided temporal headache he does not suffer from headaches nor had migraines earlier in life appetite remains poor states he has lost 150 pounds ? Review of Systems Review of Systems: gen - no fevers or chills HENT - denies facial pain or blowing purulent nasal discharge; no sore throat CV - no chest pain GI - no abd pain/nausea/emesis Physical Exam Physical Exam: gen - cachectic, pleasant, malnourished eyes - ptosis L eye (chronic); PERRL mouth - MMM neck - no JVD heart - RRR, s1 s2 lungs - CTA b/l abd - soft NT no HSM ext - no edema, pulses 2+ b/l neuro - mild proximal muscle weakness of shoulder muscles but not the hips; strength distally (handgrip, ankle dorsiflexion/plantarflexion) 5/5 no fasciculations noted head - no temporal artery tenderness b/l to palpation Results & Data Results & Data Vital Signs (Past 12 Hours) Vital Signs Temp Pulse Resp BP Pulse Ox O2 Del Method 07/08/23 09:00 Room Air 07/08/23 07:30 36.8 C 80 16 128/81 99 Room Air 07/08/23 03:55 36.9 C 88 18 137/87 98 Room Air Laboratory Results Laboratory Results - last 24 hr 07/06/23 07/08/23 07/08/23 06:52 10:04 10:55 WBC RBC Hgb Hct MCV MCH MCHC RDW Std Deviation RDW Coeff of Shayan Plt Count MPV Immature Gran % (Auto) Neut % (Auto) Lymph % (Auto) [place] % (Auto) Eos % (Auto) Baso % (Auto) Neut # (Auto) Lymph # (Auto) [place] # (Auto) Eos # (Auto) Baso # (Auto) Immature Gran # (Auto) RBC Morphology Peripher Smr Path Cons Sodium Potassium Chloride Carbon Dioxide Anion Gap BUN Creatinine Est Cr Clr Drug Dosing Est GFR ( Amer) Est GFR (Non-Af Amer) BUN/Creatinine Ratio Glucose Calcium Folate > 22.30 NEAL Screen POSITIVE A NEAL Titer 1:80 H NEAL Pattern Nuclear, Speckled A Lyme Disease IgG Ab Lyme Disease IgM Ab SARS-CoV-2 (PCR) NEGATIVE PG Care Time/CCT Total # of Minutes Spent Total Time Spent with Patient: Total time spent is greater than 50% in coordination of care (as documented) at patient's floor/unit and/or counseling patient: Coding Level of Care Code 70033 SUB INP/OBS CARE 3/50MIN Diagnoses Acute sinusitis J01.90 Abdominal pain R10.9 Weakness R53.1 ASCVD (arteriosclerotic cardiovascular disease) I25.10 Ptosis of eyelid, left H02.402 Folate deficiency E53.8 Wernicke encephalopathy E51.2 Anemia D64.9 Esophageal dysphagia R13.19 Dysphagia type: esophageal phase Severe protein-calorie malnutrition E43 (9) Dysphagia Dysphagia type: esophageal phase Qualified Code(s): R13.19 - Other dysphagia
[2023-07-08] MEDS ORDERED: GADOBUTROL 65ML VIAL IV ONE (13:14)
--- NOTE | 2023-07-08 13:46 | Magnetic Resonance Report ---
MRI OF THE BRAIN COMBO CLINICAL HISTORY: Left-sided headaches. COMPARISON STUDY: CT of the brain dated 12/07/2022. MRI of the brain dated 12/15/2007. TECHNIQUE: MRI of the brain was performed utilizing various T1 and T2-weighted sequences in the axial , sagittal, and coronal planes. Contrast-enhanced sequences were acquired following the administratio n of 6.7 cc of Gadavist. FINDINGS: Brain parenchyma: There is age related involutional change noting moderate subcortical and periventri cular microangiopathic disease. There is no hemorrhage or mass effect. There is no restricted diffusi on to suggest acute ischemia. No enhancing mass lesion is identified on the postcontrast images. Galindo -white matter differentiation is preserved. No extra-axial fluid collection is seen. The cerebellar t onsils are normal in configuration. Ventricles, sulci, and cisterns: Prominent secondary to involutional change. Pituitary and sella: Partially empty sella is incidentally noted. Intracranial vasculature: Normal flow voids are maintained at the skull base. Orbits: The bony orbits are grossly intact. Orbital contents are normal in appearance noting bilatera l ocular lens implants. Sinuses and mastoids: There is subtotal opacification of the right ethmoid sinuses. A 3.[address] ructure extending into the right nasal cavity may represent a large polyp. There is a retention cyst in the right sphenoid sinus. There is near-complete opacification of the right frontal sinus. There a re small mastoid effusions, left larger than right. Calvarium: Unremarkable. Cervical cord: Partially visualized cervical spinal cord is normal in morphology and signal intensity . IMPRESSION: 1. No acute intracranial abnormality. 2. Paranasal sinus disease as above with a large ovoid structure extending into the right nasal cavit y. This may represent a polyp. Correlate with direct visualization. ACT 112: Negative or not required by law. Electronically signed by: Vladislav Wang M.D. 07/08/2023 1:44 PM
[2023-07-08] MEDS: POTASSIUM CHLORIDE CRTAB 20 MEQ TABCR PO SCH ×2 (14:02→19:34)
[2023-07-08 15:46] LABS: Anti Nuclear Antibody Screen POSITIVE (NEGATIVE)
[2023-07-09] MEDS: SODIUM CHLORIDE 0.45 % 1,000 ML IV SCH (03:16)
[2023-07-09] MEDS: UNASYN 3000MG / NS q6h IV SCH ×2 (03:16→10:33)
[2023-07-09 08:11] LABS: Basophils # (auto) 0.02 K/uL (0.00-0.20); Basophils % (auto) 0.5 %; Eosinophils # (auto) 0.08 K/uL (0.00-0.50); Eosinophils % (auto) 2.2 %; Hematocrit (blood only) 23.8 % (42.0-52.0); Hemoglobin 7.9 g/dl (14.0-18.0); Immature Granulocytes # (auto) 0.05 K/uL (0.01-0.20); Immature Granulocytes % (auto) 1.4 %; Lymphocytes # (auto) 0.92 K/uL (1.20-3.40); Lymphocytes % (auto) 25.3 %; Mean Corpuscular Hemoglobin 34.1 pg (25.0-34.0); Mean Corpuscular Hgb Conc 33.2 g/dL (32.0-36.0); Mean Corpuscular Volume 102.6 fL (80.0-100.0); Monocytes # (auto) 0.48 K/uL (0.11-0.59); Monocytes % (auto) 13.2 %; Neutrophils # (auto) 2.09 K/uL (1.40-6.50); Neutrophils % (auto) 57.4 %; Platelet Count 211 K/uL (130-400); RDW Coefficient of Variation 12.7 % (11.5-14.5); RDW Standard Deviation 47.6 fL (36.4-46.3); Red Blood Count 2.32 M/uL (4.70-6.10); White Blood Count 3.64 K/ul (4.8-10.8)
[2023-07-09 08:34] LABS: BUN Creatinine Ratio 13.6 (10-20); Calcium 7.9 mg/dl (8.6-10.3); Creatinine Clr Calc Pharmacy 91.1 ml/min; Est GFR (African American) 109.3 ml/min; Est GFR (Non-African American) 94.3 ml/min; Potassium 3.2 mmol/L (3.5-5.1)
[2023-07-09 08:49] LABS: Lyme Ab IgG w/WB Rflx Negative (Negative); Lyme Ab IgM w/WB Rflx Negative (Negative)
[2023-07-09 09:06] LABS: RBC Morphology Unremarkable
[2023-07-09] MEDS: ESCITALOPRAM OXALATE 10 MG TAB PO SCH (09:11)
[2023-07-09] MEDS: CYANOCOBALAMIN (B-12) 500 MCG TABLET PO SCH (09:11)
[2023-07-09] MEDS: POTASSIUM CHLORIDE CRTAB 20 MEQ TABCR PO SCH ×4 (09:12→19:50)
[2023-07-09] MEDS: FERROUS SULFATE 325 MG TAB PO SCH (09:12)
[2023-07-09] MEDS: PANTOprazole 40 MG TAB PO SCH (09:12)
[2023-07-09] MEDS: FOLIC ACID 1 MG TAB PO SCH (09:12)
[2023-07-09] MEDS: THIAMINE HCL 100 MG TAB PO SCH (09:12)
[2023-07-09] MEDS: CEROVITE ADV FORMULA TAB PO SCH (09:12)
[2023-07-09] MEDS: OXYMETAZOLINE 0.05% 30 ML BTL SCH (09:22)
[2023-07-09] MEDS: FLUTICASONE PROPIONATE NA SPR 16 GM BTL SCH (09:22)
[2023-07-09] MEDS: CYANOCOBALAMIN 1000 MCG/ML VIAL IM SCH (09:27)
[2023-07-09 10:19] LABS: ANA Pattern Nuclear, Speckled
[2023-07-09] MEDS: HEPARIN SOD 5,000 UNIT/0.5 ML VIAL SQ SCH ×2 (11:57→19:50)
[2023-07-09] MEDS: AMOXICILLIN/CLAVULANATE 875 MG TAB PO SCH (17:22)
--- NOTE | 2023-07-09 21:24 | Hospitalist Progress Note ---
Date of Service July 09, 2023 Assessment & Plan (1) Acute sinusitis: Plan: day #3 of unasyn d/c such, change to augmentin; abx course - 7 days of IV/PO therapy CT and MRI head without air-fluid levels to suggest acute sinus disease suspect most of what we are seeing is chronic in nature I don't think the left-sided headache is from the sinuses however (2) Abdominal pain: Plan: resolved he has not reported any abd pain to me yesterday or today recent CT a/p without acute pathology recent lipase, u/a, etc without abnormalities (3) Weakness: Plan: Etiology of weakness, weight loss, and failure to thrive uncertain. He has persistently elevated inflammatory markers with CRP 4-->7-->10 and ESR 71. Rachel-CT over his 2 hospital stays without overt cancerous process/pathology. EGD without esophageal or gastric cancer (had esophageal ring that was dilated only). NEAL has returned + in low-titer. Speckled pattern. Uncertain of significance. Sister with lupus to his recollection?? Left sided headaches and shoulder muscle weakness/myalgias --> temporal arteritis/PMR overlay?? CPK wnl. Lyme negative. MRI brain without stroke or other lesions. Remains leukopenic and anemic with macrocytosis - due to folate def? early MDS? MM? other? Formal peripheral smear without features of myeloproliferative d/o. SPEP is pending. In light of CBC findings and weight loss, etc will ask hematology to see in consult. Due to elevated inflammatory markers, myalgias, L temporal headaches (coming/going), +NEAL, ?fam hx of autoimmune disease, etc --> rheum consult. 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 (8) Anemia: Plan: remains on folate supplementation B12 384. MMA is pending. Prior attending MD started B12 IM injections on 07/07 - received 2 doses. Will cont PO B12 1000mcg daily. in light of leukopenia, macrocytosis, neg peripheral smear, etc - bone marrow bx down the line? await SPEP alternatively his anemic could simply be due to anemia of chronic disease cbc in am for stability will likely consult hematology for their opinion in light of clinical picture (9) Dysphagia: Plan: Esophageal dysphagia - Schatzki's ring dilated with EGD last admission, was able to eat following that, continue PPI. Nutrition improved albumin improved from 3.2 to 3.5 (10) Severe protein-calorie malnutrition: Plan: severe cachexia with severe weight loss and failure to thrive etiology uncertain as above cont MVI cont folate cont B12 cont Fe Plan PT OT updated pt's by phone yesterday evening low potassium - replace once again; BMP am DVT proph - heparin 5000 BID Admission and Anticipated Discharge Date Admission Date: July 06, 2023 Subjective patient resting in bed watching TV offers no new complaints states L sided temporal headache was better today denies any URI symptoms no cough reports that rash on face/forehead is NOT painful -- "I have rosacea" pt thinks his sister has lupus also one of his kids had leukemia patient a little confused today was talking about things that did not make sense denied any myalgias today appetite remains fair at best Review of Systems Review of Systems: gen - fatigue, weak cv - no chest pain pulm - no dyspnea at rest GI - no nausea/emesis Physical Exam Physical Exam: gen - cachectic, malnourished, confused today, weak eyes - ptosis L eye (chronic) mouth - MMM, no oral lesions/ulcers neck - no JVD heart - RRR, s1 s2, no murmur lungs - CTA b/l abd - soft NT no HSM ext - no edema, pulses 2+ b/l neuro - muscle atrophy of legs/arms/temporal muscles of face head - no temporal artery tenderness b/l to palpation skin - erythematous pustules and papules face, forehead (but not scalp), around nose, and neck; no rash on arms, legs, torso, back; not vesicular psych - confused today Results & Data Results & Data Vital Signs (Past 12 Hours) Vital Signs Temp Pulse Resp BP Pulse Ox O2 Del Method 07/09/23 15:45 Room Air 07/09/23 14:45 36.5 C 70 16 145/84 H 98 Room Air Laboratory Results Laboratory Results - last 24 hr 07/06/23 07/09/23 06:52 07:23 WBC 3.64 L RBC 2.32 L Hgb 7.9 L Hct 23.8 L MCV 102.6 H MCH 34.1 H MCHC 33.2 RDW Std Deviation 47.6 H RDW Coeff of Shayan 12.7 Plt Count 211 MPV 10.0 Immature Gran % (Auto) 1.4 Neut % (Auto) 57.4 Lymph % (Auto) 25.3 [place] % (Auto) 13.2 Eos % (Auto) 2.2 Baso % (Auto) 0.5 Neut # (Auto) 2.09 Lymph # (Auto) 0.92 L [place] # (Auto) 0.48 Eos # (Auto) 0.08 Baso # (Auto) 0.02 Immature Gran # (Auto) 0.05 RBC Morphology Unremarkable Sodium 136 Potassium 3.2 L Chloride 105 Carbon Dioxide 24 Anion Gap 7 BUN 8 Creatinine 0.59 L Est Cr Clr Drug Dosing 91.1 Est GFR ( Amer) 109.3 Est GFR (Non-Af Amer) 94.3 BUN/Creatinine Ratio 13.6 Glucose 85 Calcium 7.9 L NEAL Screen POSITIVE A NEAL Titer 1:80 H NEAL Pattern Nuclear, Speckled A Lyme Disease IgG Ab Negative Lyme Disease IgM Ab Negative PG Care Time/CCT Total # of Minutes Spent Total Time Spent with Patient: Total time spent is greater than 50% in coordination of care (as documented) at patient's floor/unit and/or counseling patient: Coding Level of Care Code 07832 SUB INP/OBS CARE 2/35MIN Diagnoses Acute sinusitis J01.90 Abdominal pain R10.9 Weakness R53.1 ASCVD (arteriosclerotic cardiovascular disease) I25.10 Ptosis of eyelid, left H02.402 Folate deficiency E53.8 Wernicke encephalopathy E51.2 Anemia D64.9 Esophageal dysphagia R13.19 Dysphagia type: esophageal phase Severe protein-calorie malnutrition E43 (9) Dysphagia Dysphagia type: esophageal phase Qualified Code(s): R13.19 - Other dysphagia
[2023-07-10 07:09] LABS: Basophils # (auto) 0.02 K/uL (0.00-0.20); Basophils % (auto) 0.5 %; Eosinophils # (auto) 0.07 K/uL (0.00-0.50); Eosinophils % (auto) 1.7 %; Hematocrit (blood only) 23.4 % (42.0-52.0); Hemoglobin 7.8 g/dl (14.0-18.0); Immature Granulocytes # (auto) 0.07 K/uL (0.01-0.20); Immature Granulocytes % (auto) 1.7 %; Lymphocytes # (auto) 0.98 K/uL (1.20-3.40); Lymphocytes % (auto) 23.6 %; Mean Corpuscular Hemoglobin 34.2 pg (25.0-34.0); Mean Corpuscular Hgb Conc 33.3 g/dL (32.0-36.0); Mean Corpuscular Volume 102.6 fL (80.0-100.0); Mean Platelet Volume 9.9 fL (9.4-12.4); Monocytes # (auto) 0.41 K/uL (0.11-0.59); Monocytes % (auto) 9.9 %; Neutrophils # (auto) 2.61 K/uL (1.40-6.50); Neutrophils % (auto) 62.6 %; Platelet Count 218 K/uL (130-400); RDW Coefficient of Variation 12.5 % (11.5-14.5); RDW Standard Deviation 46.5 fL (36.4-46.3); Red Blood Count 2.28 M/uL (4.70-6.10); White Blood Count 4.16 K/ul (4.8-10.8)
[2023-07-10 07:23] LABS: BUN Creatinine Ratio 9.7 (10-20); C Reactive Protein 2.41 mg/dl (0-0.5); Calcium 8.1 mg/dl (8.6-10.3); Creatinine Clr Calc Pharmacy 86.7 ml/min; Est GFR (African American) 107.1 ml/min; Est GFR (Non-African American) 92.4 ml/min
[2023-07-10 07:47] LABS: RBC Morphology Unremarkable
[2023-07-10] MEDS: CEROVITE ADV FORMULA TAB PO SCH (08:00)
[2023-07-10] MEDS: THIAMINE HCL 100 MG TAB PO SCH (08:00)
[2023-07-10] MEDS: ESCITALOPRAM OXALATE 10 MG TAB PO SCH (08:00)
[2023-07-10] MEDS: AMOXICILLIN/CLAVULANATE 875 MG TAB PO SCH ×2 (08:00→17:37)
[2023-07-10] MEDS: POTASSIUM CHLORIDE CRTAB 20 MEQ TABCR PO SCH (08:00)
[2023-07-10] MEDS: CYANOCOBALAMIN (B-12) 500 MCG TABLET PO SCH (08:01)
[2023-07-10] MEDS: FOLIC ACID 1 MG TAB PO SCH (08:01)
[2023-07-10] MEDS: PANTOprazole 40 MG TAB PO SCH (08:01)
[2023-07-10] MEDS: FLUTICASONE PROPIONATE NA SPR 16 GM BTL SCH (08:01)
[2023-07-10] MEDS: HEPARIN SOD 5,000 UNIT/0.5 ML VIAL SQ SCH ×2 (08:02→20:01)
[2023-07-10] MEDS: SODIUM CHLORIDE 0.45 % 1,000 ML IV SCH (09:02)
[2023-07-10] MEDS ORDERED: predniSONE 20 MG TAB PO STA (13:12)
--- NOTE | 2023-07-10 16:38 | Rheumatology Consultation ---
Rheumatology Consultation DOS July 10, [address] Frias Attending Physician Dr Frias Reason for Consultation elevated inflammatory markers Assessment & Plan (1) Generalized weakness: he has had 1 yr of headaches and generalized muscle weakness, fatigue and failure to thrive. he has left sided temporal headaches that come and go. he does have a significantly elevated ESR, elevated CRP but his history is not very consistent with GCA - no scalp tenderness, jaw pain, palpitations, night sweats. he does have anemia and awaiting hematology evaluation. vasculitis such as GCA is always a consideration in the elderly with elevated ESR/CRP, headaches, fatigue and other constitutional symptoms. did give a dose of prednisone today and will gauge response. could consider bilateral temporal artery biopsies especially given unclear diagnosis and patient is here inpatient. unclear significance of the low + NEAL. his history would not be concerning for SLE itself. (2) Serologic abnormality: see above (3) Headache: see above Plan 1. consider bialteral temporal artery biopsies 2. continue pred 20mg daily to see if helps 3. await hematology evaluation 4. would check c3,c4, anti dna, ssa/b and FISHER EEL-robertson given + NEAL 5. will discuss with Dr Frias 6. thanks for the consult and involving me in the patient's care History of Present Illness Reason for Consultation: elevated inflammatory markers Requesting Physician: Dr Frias Attending Physician: Binu Frias MD History of Present Illness Mr Alvarez has been admitted to [facility] several times now over the last month with fatigue, muscle weakness and failure to thrive. at this most recent admission he had inflamamtory markers checked and his esr was > 70 and CRP was around 4. he had previous CRP during the other hospital stays as well that were elevated. he reports a 47 lbs weight loss since Jun of last year (2021). he states since last fall he has dealt with bouts of fatigue, weakness, and lack of appetite. he has seen his PCP for this as well. His sister and are at bedside with him. His sister has lupus and has had it for 20+ yrs. no other family members with autoimmune diseases that they are aware of. He reports that he also has dealt with left sided headaches since last year as well. these seem to come and go. he is not sure what makes them worse or better. he denies any scalp tenderness or jaw claudication. he denies any sudden vision loss or prolonged blurry vision. he states he had some blurry vision this am but did not last long. he has history of left eye lid surgery that did not work well and the lid is usually closed. he denies any palpitations. he denied any nausea, just did not feel hungry. no night sweats. no swollen or tender joints. he has some joint pains at times. during last visit he was seen by GI and had EGD that showed a skazki ring that was dilated - biopsies done looked fine. he has had extensive imaging done with no definitive diagnosis. labs also showed a low + NEAL at 1:80 speckled pattern. he has a facial rash and pustules that is not new for him. he has had this for yrs as per patient and family. they state he has rosacea. he has multiple ecchymosis on his arms. he is anemic which is more profound then his in itial visits here. there is a hematology consult pending. Allergies Allergy/AdvReac Type Severity Reaction Status Date / Time shrimp Allergy Severe Hives and Unverified 06/04/23 18:16 GI Upset erythromycin base Allergy Unknown Unknown Unverified 06/04/23 18:16 Home Medications Medication Instructions Recorded Confirmed Type cyanocobalamin (vitamin B-12) 500 500 mcg PO QAM #0 tabs 06/09/23 07/03/23 Rx mcg tablet folic acid 1 mg tablet 1 mg PO QAM #0 tabs 06/09/23 07/03/23 Rx pantoprazole 40 mg tablet,delayed 40 mg PO QAM #0 tabs 06/09/23 07/03/23 Rx release thiamine HCl (vitamin B1) 100 mg 100 mg PO QAM #0 tabs 06/09/23 07/03/23 Rx tablet escitalopram oxalate 5 mg tablet 5 mg PO DAILY 07/03/23 07/03/23 History Patient History Medical History (Updated 07/10/23 @ 16:44 by Sea Owens MD) Wernicke encephalopathy Ptosis of eyelid, left Dupuytren's contracture of hand Social History Smoking Status: Never smoker Second Hand Exposure: No; Do You Dip or Chew Tobacco: No; Hx Alcohol Use: Yes Hx Substance Use: No Preferred Language: Macedonian Communication Ability: Effective 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: No Beliefs That Will Affect Care: None Current Living Situation: Spouse Other Information That Helps Us Care for You: No Feels Safe at Home: Yes Safety Concerns: Feels Safe At This Time Assistive Devices: Cane and Walker Review of Systems Constitutional: fatigue, weight loss, weakness Eyes: left eye ptosis, blurry vision this am - resilved quickly Ear, Nose, Mouth, Throat: facial rash Respiratory: no cough Cardiovascular: Additional Comments: negative Gastrointestinal: lack of appetite Musculoskeletal: muscle weakness Integumentary: facial skin rash Neurologic: confusion Physical Exam Constitutional: elderly male, thin, NAD, examined in bed Eyes: left ptosis noted, conjunctiva clear ENMT: temporal pulses noted bialterally Neck: no adenopathy Respiratory: CTA B/l no wheezes Cardiovascular: reg, no murmurs, + s1 and s2 Gastrointestinal (Abdomen): active bowel sounds heard, no pain, soft Musculoskeletal: hip flexor strength 4-/5 bilaterally, deltoid and bicep strength 5-/5 bilaterally. no synovitis of the hands or feet. no knee effusions. Skin: pustules noted on face. ecchymosis on forearms. Results & Data Vital Signs (Past 12 Hours) Vital Signs Temp Pulse Resp BP Pulse Ox O2 Del Method 07/10/23 15:05 36.7 C 74 18 148/79 H 98 Room Air 07/10/23 08:08 36.5 C 77 20 155/90 H 95 Room Air Laboratory Results reviewed Diagnostic Findings reviewed
--- NOTE | 2023-07-10 21:20 | Hospitalist Progress Note ---
Date of Service July 10, 2023 Assessment & Plan (1) Weakness: Plan: Etiology of weakness, weight loss, and failure to thrive uncertain. He has persistently elevated inflammatory markers with CRP 4-->7-->10 and ESR 71. CRP is better today, however. Rachel-CT over his 2 hospital stays without overt cancerous process/pathology. EGD without esophageal or gastric cancer (had esophageal ring that was dilated only). NEAL has returned + in low-titer. Speckled pattern. Uncertain of significance. Sister does have SLE. Left sided headaches and shoulder muscle weakness/myalgias --> temporal arteritis/PMR overlay?? CPK wnl. Lyme negative. MRI brain without stroke or other lesions. Remains leukopenic and anemic with macrocytosis - due to folate def? early MDS? MM? other? Formal peripheral smear without features of myeloproliferative d/o. SPEP is pending. In light of CBC findings and weight loss, etc will ask hematology to see in consult. Due to elevated inflammatory markers, myalgias, L temporal headaches (coming/going), +NEAL, ?fam hx of autoimmune disease, etc --> rheum consult. Dr Owens saw patient in consult today (rheum) - advises TA biopsy, trial of prednisone 20mg daily, and SLE labs (C3,C4, anti-dsDNA, etc). await heme consultation Cont PT/OT (2) Acute sinusitis: Plan: day #4 - unasyn then augmentin complete [address] and MRI head without air-fluid levels to suggest acute sinus disease suspect most of what we are seeing is chronic in nature I don't think the left-sided headache is from the sinuses however (3) Abdominal pain: Plan: resolved he has not reported any abd pain to me yesterday or today recent CT a/p without acute pathology recent lipase, u/a, etc without abnormalities (4) ASCVD (arteriosclerotic cardiovascular disease): (5) Ptosis of eyelid, left: Plan: Chronic, has been followed by [facility] in [place] and has had several eyelid surgeries Left eye vision is intact (6) Folate deficiency: Plan: Continue oral folate 1mg daily although repeat level was wnl this week (7) Wernicke encephalopathy: Plan: Wernicke's encephalopathy - thiamine was low at 36 on prior admission Treated with high dose IV thiamine last admission for such Continue indefinite oral thiamine I believe his thiamine def is indicative of his overall malnutrition and not the dedicated driver of his ongoing failure to 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 (8) Anemia: Plan: remains on folate supplementation B12 384. MMA is pending. Prior attending MD started B12 IM injections on 07/07 - received 2 doses. Will cont PO B12 1000mcg daily. in light of leukopenia, macrocytosis, neg peripheral smear, etc - bone marrow bx down the line? await SPEP alternatively his anemic could simply be due to anemia of chronic disease consulted hematology for their opinion in light of clinical picture and #1 above along with failure to thrive (9) Dysphagia: Plan: Esophageal dysphagia - Schatzki's ring dilated with EGD last admission, was able to eat following that, continue PPI. Nutrition improved albumin improved from 3.2 to 3.5 (10) Severe protein-calorie malnutrition: Plan: severe cachexia with severe weight loss and failure to thrive etiology uncertain as above cont MVI cont folate cont B12 cont Fe Plan PT OT updated pt's and sister at bedside today DVT proph - heparin 5000 BID Admission and Anticipated Discharge Date Admission Date: July 06, 2023 Subjective & sister at bedside sister reports long history of SLE - she takes plaquenil confirms he has had the rash on his face for "long time" no new issues he mentions going to rehab post-d/c we discussed having heme & rheum see him in consult Review of Systems Review of Systems: gen - eating is better neuro - no headache today, but had such yesterday cv - no chest pain pulm - no dyspnea GI - no N/V Physical Exam Physical Exam: gen - cachectic, malnourished, still a little confused today, weak eyes - ptosis L eye (chronic) mouth - MMM, no oral lesions/ulcers neck - no JVD heart - RRR, s1 s2, no murmur lungs - CTA b/l abd - soft NT no HSM ext - no edema, pulses 2+ b/l skin - erythematous pustules and papules face, forehead (but not scalp), around nose, and neck; no rash on arms, legs, torso, back; not vesicular Results & Data Results & Data Vital Signs (Past 12 Hours) Vital Signs Temp Pulse Resp BP Pulse Ox O2 Del Method 07/10/23 21:18 36.6 C 70 18 167/92 H 99 Room Air 07/10/23 15:05 36.7 C 74 18 148/79 H 98 Room Air Laboratory Results Laboratory Results - last 24 hr 07/10/23 06:53 WBC 4.16 L RBC 2.28 L Hgb 7.8 L Hct 23.4 L MCV 102.6 H MCH 34.2 H MCHC 33.3 RDW Std Deviation 46.5 H RDW Coeff of Shayan 12.5 Plt Count 218 MPV 9.9 Immature Gran % (Auto) 1.7 Neut % (Auto) 62.6 Lymph % (Auto) 23.6 [place] % (Auto) 9.9 Eos % (Auto) 1.7 Baso % (Auto) 0.5 Neut # (Auto) 2.61 Lymph # (Auto) 0.98 L [place] # (Auto) 0.41 Eos # (Auto) 0.07 Baso # (Auto) 0.02 Immature Gran # (Auto) 0.07 RBC Morphology Unremarkable Sodium 136 Potassium 4.0 D Chloride 106 Carbon Dioxide 25 Anion Gap 5 BUN 6 Creatinine 0.62 Est Cr Clr Drug Dosing 86.7 Est GFR ( Amer) 107.1 Est GFR (Non-Af Amer) 92.4 BUN/Creatinine Ratio 9.7 L Glucose 89 Calcium 8.1 L C-Reactive Protein 2.41 H PG Care Time/CCT Total # of Minutes Spent Total Time Spent with Patient: Total time spent is greater than 50% in coordination of care (as documented) at patient's floor/unit and/or counseling patient: Coding Level of Care Code 62834 SUB INP/OBS CARE 2/35MIN Diagnoses Weakness R53.1 Acute sinusitis J01.90 Abdominal pain R10.9 ASCVD (arteriosclerotic cardiovascular disease) I25.10 Ptosis of eyelid, left H02.402 Folate deficiency E53.8 Wernicke encephalopathy E51.2 Anemia D64.9 Esophageal dysphagia R13.19 Dysphagia type: esophageal phase Severe protein-calorie malnutrition E43 (9) Dysphagia Dysphagia type: esophageal phase Qualified Code(s): R13.19 - Other dysphagia
[2023-07-11 06:58] LABS: Albumin 2.4 g/dL (3.8-4.8); Alpha 1 Globulin 0.4 g/dL (0.2-0.3); Alpha 2 Globulin 0.9 g/dL (0.5-0.9); Beta-1-Globulin 0.3 g/dL (0.4-0.6); Beta-2-Globulin 0.5 g/dL (0.2-0.5); Gamma Globulin 1.2 g/dL (0.8-1.7); Monoclonal Protein Band 1 DNR g/dL (NONE DETECTED); Monoclonal Protein Band 2 DNR g/dL (NONE DETECTED); Monoclonal Protein Band 3 DNR g/dL (NONE DETECTED); Total Protein 5.8 g/dL (6.1-8.1)
[2023-07-11] MEDS: CYANOCOBALAMIN (B-12) 500 MCG TABLET PO SCH (08:39)
[2023-07-11] MEDS: FOLIC ACID 1 MG TAB PO SCH (08:39)
[2023-07-11] MEDS: THIAMINE HCL 100 MG TAB PO SCH (08:39)
[2023-07-11] MEDS: PANTOprazole 40 MG TAB PO SCH (08:39)
[2023-07-11] MEDS: ESCITALOPRAM OXALATE 10 MG TAB PO SCH (08:40)
[2023-07-11] MEDS: FERROUS SULFATE 325 MG TAB PO SCH (08:40)
[2023-07-11] MEDS: predniSONE 20 MG TAB PO SCH (08:40)
[2023-07-11] MEDS: FLUTICASONE PROPIONATE NA SPR 16 GM BTL SCH (08:41)
[2023-07-11] MEDS: HEPARIN SOD 5,000 UNIT/0.5 ML VIAL SQ SCH ×2 (08:44→21:06)
[2023-07-11] MEDS: CEROVITE ADV FORMULA TAB PO SCH (10:02)
[2023-07-11] MEDS: AMOXICILLIN/CLAVULANATE 875 MG TAB PO SCH ×2 (10:02→17:21)
[2023-07-11 11:33] LABS: Copper, Serum 87 mcg/dL (70-175); Methylmalonic Acid 201 nmol/L (87-318)
--- NOTE | 2023-07-11 20:51 | Hospitalist Progress Note ---
Date of Service July 11, 2023 Assessment & Plan (1) Weakness: Plan: Etiology of weakness, weight loss, and failure to thrive uncertain. He has persistently elevated inflammatory markers with CRP 4-->7-->10 but now down to 2.4. ESR 71. Rachel-CT over his 2 hospital stays without overt cancerous process/pathology. EGD without esophageal or gastric cancer (had esophageal ring that was dilated only). NEAL has returned + in low-titer. Speckled pattern. Uncertain of significance. Sister does have SLE. Left sided headaches and shoulder muscle weakness/myalgias --> temporal arteritis/PMR overlay?? CPK wnl. Lyme negative. MRI brain without stroke or other lesions. Remains leukopenic and anemic with macrocytosis - due to folate def? early MDS? MM? --> SPEP with faint M-spike (see #2 below) other? Formal peripheral smear without features of myeloproliferative d/o. In light of CBC findings and weight loss, etc will ask hematology to see in consult. Due to elevated inflammatory markers, myalgias, L temporal headaches (coming/going), +NEAL, ?fam hx of autoimmune disease, etc --> rheum consult. Dr Owens saw patient in consult (rheum) - advises TA biopsy, prednisone 20mg daily, and SLE labs (C3,C4, anti-dsDNA, etc). Patient does seem to have responded to the prednisone - feels much better today I [place] [place] biopsy this Friday if still hospitalized await heme consultation Cont PT/OT (2) Abnormal SPEP: Plan: plan to send UPEP, immunofixation, etc await Heme consult and other recs (3) Acute sinusitis: Plan: day #5 - unasyn then augmentin complete [address] and MRI head without air-fluid levels to suggest acute sinus disease suspect most of what we are seeing is chronic in nature I don't think the previous left-sided headaches were sinus-related however (4) Abdominal pain: Plan: resolved he has not reported any abd pain to me yesterday or today recent CT a/p without acute pathology recent lipase, u/a, etc without abnormalities (5) ASCVD (arteriosclerotic cardiovascular disease): (6) Ptosis of eyelid, left: Plan: Chronic, has been followed by [facility] in [place] and has had several eyelid surgeries Left eye vision is intact Interestingly his ptosis is much better today - nearly normal actually (7) Folate deficiency: Plan: Continue oral folate 1mg daily although repeat level was wnl this week (8) Wernicke encephalopathy: Plan: Wernicke's encephalopathy - thiamine was low at 36 on prior admission Treated with high dose IV thiamine last admission for such Continue indefinite oral thiamine I believe his thiamine def is indicative of his overall malnutrition and not the cart driver of his ongoing failure to 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 (9) Anemia: Plan: remains on folate supplementation B12 384. MMA is pending. Prior attending MD started B12 IM injections on 07/07 - received 2 doses. Will cont PO B12 1000mcg daily. in light of leukopenia, macrocytosis, neg peripheral smear, etc - bone marrow bx down the line? SPEP mildly + with M-spike seen see above alternatively his anemic could simply be due to anemia of chronic disease consulted hematology for their opinion in light of clinical picture and #1 above along with failure to thrive (10) Dysphagia: Plan: Esophageal dysphagia - Schatzki's ring dilated with EGD last admission, was able to eat following that, continue PPI. Nutrition improved albumin improved from 3.2 to 3.5 (11) Severe protein-calorie malnutrition: Plan: severe cachexia with severe weight loss and failure to thrive etiology uncertain as above cont MVI cont folate cont B12 cont Fe Plan PT OT updated pt's and sister at bedside yesterday DVT proph - heparin 5000 BID dispo post-d/c -- [facility]?? Admission and Anticipated Discharge Date Admission Date: July 06, 2023 Subjective no issues overnight "I feel good!" really good appetite today no headaches no myalgias no new symptoms we discussed the rheumatology recommendations including TA bx Review of Systems Review of Systems: gen - no fevers cv - no chest pain pulm - no cough/congestion/dyspnea GI - no N/V/pain Physical Exam Physical Exam: gen - cachectic, malnourished, best he has looked all week eyes - ptosis L eye (chronic) is improved; the lid was nearly fully open today mouth - MMM, no oral lesions/ulcers neck - no JVD heart - RRR, s1 s2, no murmur lungs - CTA b/l abd - soft NT no HSM ext - no edema, pulses 2+ b/l skin - erythematous pustules and papules face, forehead, around nose, and neck IMPROVED today Results & Data Results & Data Vital Signs (Past 12 Hours) Vital Signs Temp Pulse Resp BP Pulse Ox O2 Del Method 07/11/23 15:58 36.6 C 77 18 136/71 97 Room Air Laboratory Results Laboratory Results - last 48 hr 07/07/23 07/07/23 07/11/23 05:23 08:41 05:42 WBC RBC Hgb Hct MCV MCH MCHC RDW Std Deviation RDW Coeff of Shayan Plt Count MPV Immature Gran % (Auto) Neut % (Auto) Lymph % (Auto) [place] % (Auto) Eos % (Auto) Baso % (Auto) Neut # (Auto) Lymph # (Auto) [place] # (Auto) Eos # (Auto) Baso # (Auto) Immature Gran # (Auto) RBC Morphology ESR Sodium Potassium Chloride Carbon Dioxide Anion Gap BUN Creatinine Est Cr Clr Drug Dosing Est GFR ( Amer) Est GFR (Non-Af Amer) BUN/Creatinine Ratio Glucose Calcium Total Protein (PEP) 5.8 L Albumin (PEP) 2.4 L Pwsbl-2-Dfwvgzxch 0.4 H Dhgja-5-Yadorosqn 0.9 Ewtf-9-Ljvozqbm 0.3 L Wexv-1-Dnjsgcdu 0.5 Gamma Globulins 1.2 Monoclonal Peak 3 DNR Ser Monoclonl Protein DNR Ser Monoclonal Prot 2 DNR PEP Interpretation SEE NOTE Methylmalonic Acid 201 Ascorbic Acid Cancelled Serum Copper 87 Miscellaneous Test Cancelled PG Care Time/CCT Total # of Minutes Spent Total Time Spent with Patient: Total time spent is greater than 50% in coordination of care (as documented) at patient's floor/unit and/or counseling patient: Coding Level of Care Code 87692 SUB INP/OBS CARE 2/35MIN Diagnoses Weakness R53.1 Abnormal SPEP R77.8 Acute sinusitis J01.90 Abdominal pain R10.9 ASCVD (arteriosclerotic cardiovascular disease) I25.10 Ptosis of eyelid, left H02.402 Folate deficiency E53.8 Wernicke encephalopathy E51.2 Anemia D64.9 Esophageal dysphagia R13.19 Dysphagia type: esophageal phase Severe protein-calorie malnutrition E43 (10) Dysphagia Dysphagia type: esophageal phase Qualified Code(s): R13.19 - Other dysphagia
[2023-07-12 06:27] LABS: Hematocrit (blood only) 22.8 % (42.0-52.0); Hemoglobin 7.7 g/dl (14.0-18.0); Mean Corpuscular Hemoglobin 34.5 pg (25.0-34.0); Mean Corpuscular Hgb Conc 33.8 g/dL (32.0-36.0); Mean Corpuscular Volume 102.2 fL (80.0-100.0); Mean Platelet Volume 10.1 fL (9.4-12.4); Platelet Count 261 K/uL (130-400); RDW Coefficient of Variation 12.6 % (11.5-14.5); RDW Standard Deviation 46.6 fL (36.4-46.3); Red Blood Count 2.23 M/uL (4.70-6.10); White Blood Count 5.64 K/ul (4.8-10.8)
[2023-07-12 06:49] LABS: BUN Creatinine Ratio 17.8 (10-20); Calcium 8.4 mg/dl (8.6-10.3); Creatinine Clr Calc Pharmacy 73.6 ml/min; Est GFR (African American) 100.1 ml/min; Est GFR (Non-African American) 86.4 ml/min; Potassium 3.8 mmol/L (3.5-5.1)
[2023-07-12 06:51] LABS: Basophils # (auto) 0.03 K/uL (0.00-0.20); Basophils % (auto) 0.5 %; Eosinophils # (auto) 0.04 K/uL (0.00-0.50); Eosinophils % (auto) 0.7 %; Immature Granulocytes # (auto) 0.17 K/uL (0.01-0.20); Lymphocytes # (auto) 2.01 K/uL (1.20-3.40); Lymphocytes % (auto) 35.6 %; Monocytes # (auto) 0.29 K/uL (0.11-0.59); Monocytes % (auto) 5.1 %; Neutrophils % (auto) 55.1 %; RBC Morphology Unremarkable
[2023-07-12] MEDS: FLUTICASONE PROPIONATE NA SPR 16 GM BTL SCH (08:35)
[2023-07-12] MEDS: ESCITALOPRAM OXALATE 10 MG TAB PO SCH (08:35)
[2023-07-12] MEDS: CYANOCOBALAMIN (B-12) 500 MCG TABLET PO SCH (08:36)
[2023-07-12] MEDS: predniSONE 20 MG TAB PO SCH (08:37)
[2023-07-12] MEDS: CEROVITE ADV FORMULA TAB PO SCH (08:37)
[2023-07-12] MEDS: THIAMINE HCL 100 MG TAB PO SCH (08:37)
[2023-07-12] MEDS: AMOXICILLIN/CLAVULANATE 875 MG TAB PO SCH ×2 (08:37→16:54)
[2023-07-12] MEDS: PANTOprazole 40 MG TAB PO SCH (08:38)
[2023-07-12] MEDS: FOLIC ACID 1 MG TAB PO SCH (08:38)
[2023-07-12] MEDS: HEPARIN SOD 5,000 UNIT/0.5 ML VIAL SQ SCH ×2 (08:41→21:04)
--- NOTE | 2023-07-12 13:24 | Oncology Consultation ---
Date of Consultation July 12, 2023 Assessment & Plan (1) Macrocytic anemia: Reviewed the CBC, the recently performed workup. There is a high possibility that his hematological abnormalities are related to his heavy alcohol consumption. Explained to the patient that alcohol consumed in heavy amounts is myelotoxic and can lead to macrocytic anemia. The other consideration would be underlying myelodysplastic syndrome. Alcohol- related myelotoxicity is generally diagnosis of exclusion based on history. Since we are entertaining the possibility of MDS it may be reasonable to consider a bone marrow biopsy and aspiration in this patient to rule out myelodysplastic syndrome. Though I did not see any evidence of other cell line abnormalities. He did have leukopenia however that was lymphocytopenia. He does not have neutropenia. He does not have thrombocytopenia. Other causes for macrocytic anemia in patients who have heavy alcohol consumption include micronutrient deficiencies such as deficiency of copper, excess zinc level. There is a second test which can be performed on an inpatient versus outpatient basis. Plan At this point hematology will continue to make appropriate recommendations. Bone marrow biopsy is an appropriate consideration to rule out underlying MDS in this gentleman who is 82 years old. However the other consideration is alcohol related myelotoxicity and macrocytic anemia; that is a diagnosis of exclusion in my opinion, given that the patient has not had much to drink for the last 4 months and has lost about 40 pounds of weight. Will discuss with radiology regarding the CT of the abdomen and clarify that spot which is noted in the liver, whether that was hemangioma versus an actual liver nodule. Thank you for this interesting hematological consult. History of Present Illness Attending Physician: Binu Frias MD History of Present Illness An 82-year-old gentleman, who presented to the hospital with progressive weakness. He was noted to be significantly anemic with microcytosis. His hemoglobin during this admission has been between 7 to 8 g/dL. Initially he was also leukopenic however that is now improved. Reports no fever or chills. Does report weakness which is progressive over the last 6 months. He is lost about 40 pounds of weight. Of note he tells me that he drinks alcohol and heavy amounts. He tells me that he drinks about 3 drinks every night and has been drinking like that for the last 30 years. He reports no active bleeding or bruising. Reports no fever or chills. Reports no nausea vomiting. No diarrhea. He has elevated inflammatory markers. He is being followed by our rheumatology colleagues. He had a CT of the abdomen pelvis during this admission, which did not reveal any splenomegaly. There was an hepatic lesion which I noted, will clarify with our radiology colleagues whether that represents a nodule/mass versus a hemangioma. He had a recent B12/methylmalonic acid level checked which was normal. Had a TSH level checked which was normal. He is on vitamin B1 replacement. Allergies Allergy/AdvReac Type Severity Reaction Status Date / Time shrimp Allergy Severe Hives and Unverified 06/04/23 18:16 GI Upset erythromycin base Allergy Unknown Unknown Unverified 06/04/23 18:16 Home Medications Medication Instructions Recorded Confirmed Type cyanocobalamin (vitamin B-12) 500 500 mcg PO QAM #0 tabs 06/09/23 07/03/23 Rx mcg tablet folic acid 1 mg tablet 1 mg PO QAM #0 tabs 06/09/23 07/03/23 Rx pantoprazole 40 mg tablet,delayed 40 mg PO QAM #0 tabs 06/09/23 07/03/23 Rx release thiamine HCl (vitamin B1) 100 mg 100 mg PO QAM #0 tabs 06/09/23 07/03/23 Rx tablet escitalopram oxalate 5 mg tablet 5 mg PO DAILY 07/03/23 07/03/23 History Patient History Medical History (Updated 07/12/23 @ 09:28 by Binu Frias MD) Wernicke encephalopathy Ptosis of eyelid, left Dupuytren's contracture of hand Social History Smoking Status: Never smoker Second Hand Exposure: No; Do You Dip or Chew Tobacco: No; Hx Alcohol Use: Yes Hx Substance Use: No Preferred Language: Haitian Communication Ability: Effective 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
--- NOTE | 2023-07-12 18:39 | Hospitalist Progress Note ---
Date of Service July 12, 2023 Assessment & Plan (1) Weakness: Plan: Etiology of weakness, weight loss, and failure to thrive uncertain. He has persistently elevated inflammatory markers with CRP 4-->7-->10 but now down to 2.4. ESR 71 initially, now 67 today. Rachel-CT over his 2 hospital stays without overt cancerous process/pathology. EGD without esophageal or gastric cancer (had esophageal ring that was dilated only). NEAL has returned + in low-titer. Speckled pattern. Uncertain of significance. Sister does have SLE. Left sided headaches and shoulder muscle weakness/myalgias --> temporal arteritis/PMR overlay?? CPK wnl. Lyme negative. MRI brain without stroke or other lesions. Remains anemic with macrocytosis - due to folate def? Bone marrow toxicity from etoh? early MDS? MM? --> SPEP with faint M-spike (see #2 below) other? Formal peripheral smear without features of myeloproliferative d/o. In light of CBC findings and weight loss, etc asked hematology to see in consult. Due to elevated inflammatory markers, myalgias, L temporal headaches (coming/going), +NEAL, ?fam hx of autoimmune disease, etc --> rheum consult. Dr Owens saw patient in consult (rheum) - advises TA biopsy, prednisone 20mg daily, and SLE labs (C3,C4, anti-dsDNA, etc). Patient does seem to have responded to the prednisone - will continue such at least until rheum labs are back and TA biopsy has been completed. I spoke with [place] surg [place] [place] who can perform TA biopsy this Friday if still hospitalized Dr [facility] from [facility] saw patient -advised bone marrow bx - will have IR do that on Friday Cont PT/OT (2) Abnormal SPEP: Plan: plan to send UPEP, serum immunofixation, etc see #1 above (3) Acute sinusitis: Plan: day #6 of abx (was on unasyn - now augmentin) complete [address] and MRI head without air-fluid levels to suggest acute sinus disease suspect most of what we are seeing is chronic in nature I don't think the previous left-sided headaches were sinus-related however (4) Abdominal pain: Plan: resolved he has not reported any abd pain to me yesterday or today recent CT a/p without acute pathology recent lipase, u/a, etc without abnormalities (5) ASCVD (arteriosclerotic cardiovascular disease): (6) Ptosis of eyelid, left: Plan: Chronic, has been followed by [facility] in [place] and has had several eyelid surgeries Left eye vision is intact Interestingly his ptosis is much better today - nearly normal actually (7) Folate deficiency: Plan: Continue oral folate 1mg daily although repeat level was wnl this week (8) Wernicke encephalopathy: Plan: Wernicke's encephalopathy - thiamine was low at 36 on prior admission Treated with high dose IV thiamine last admission for such Continue indefinite oral thiamine I believe his thiamine def is indicative of his overall malnutrition and not the route driver coin machines of his ongoing failure to 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 (9) Anemia: Plan: remains on folate supplementation B12 384. MMA is pending. Prior attending MD started B12 IM injections on 07/07 - received 2 doses. Will cont PO B12 1000mcg daily. in light of leukopenia, macrocytosis, neg peripheral smear, etc - bone marrow bx down the line? SPEP mildly + with M-spike seen see above alternatively his anemia could simply be due to anemia of chronic disease consulted hematology for their opinion in light of clinical picture and #1 above along with failure to thrive --> bone marrow bx recommended will attempt to get that by IR on Friday (10) Dysphagia: Plan: Esophageal dysphagia - Schatzki's ring dilated with EGD last admission, was able to eat following that, continue PPI. Nutrition improved albumin improved from 3.2 to 3.5 (11) Severe protein-calorie malnutrition: Plan: severe cachexia with severe weight loss and failure to thrive etiology uncertain as above cont MVI cont folate cont B12 cont Fe Plan PT OT updated pt's at bedside today DVT proph - heparin 5000 BID dispo post-d/c -- [facility]?? Admission and Anticipated Discharge Date Admission Date: July 06, 2023 Subjective no issues overnight at bedside continues to eat better headache improved - none today no myalgias or arthralgias he again inquires about rehab Review of Systems Review of Systems: gen - no fevers or chills cv - no chest pain or orthopnea pulm - no cough/dyspnea Physical Exam Physical Exam: gen - cachectic, malnourished, but NAD & in good spirits eyes - ptosis L eye (chronic) mouth - MMM, no oral lesions/ulcers neck - no JVD heart - RRR, s1 s2, no murmur lungs - CTA b/l abd - soft NT no HSM ext - no edema, pulses 2+ b/l skin - erythematous pustules and papules face, forehead, around nose, and neck again doing better Results & Data Results & Data Vital Signs (Past 12 Hours) Vital Signs Temp Pulse Resp BP Pulse Ox O2 Del Method 07/12/23 15:43 36.4 C L 68 16 138/73 98 Room Air 07/12/23 06:57 36.3 C L 76 16 159/87 H 99 Room Air Laboratory Results Laboratory Results 07/07/23 07/12/23 08:41 05:38 WBC 5.64 RBC 2.23 L Hgb 7.7 L Hct 22.8 L MCV 102.2 H MCH 34.5 H MCHC 33.8 RDW Std Deviation 46.6 H RDW Coeff of Shayan 12.6 Plt Count 261 MPV 10.1 Immature Gran % (Auto) 3.0 Neut % (Auto) 55.1 Lymph % (Auto) 35.6 [place] % (Auto) 5.1 Eos % (Auto) 0.7 Baso % (Auto) 0.5 Neut # (Auto) 3.10 Lymph # (Auto) 2.01 [place] # (Auto) 0.29 Eos # (Auto) 0.04 Baso # (Auto) 0.03 Immature Gran # (Auto) 0.17 RBC Morphology Unremarkable ESR 67 H Sodium 137 Potassium 3.8 Chloride 105 Carbon Dioxide 26 Anion Gap 6 BUN 13 Creatinine 0.73 Est Cr Clr Drug Dosing 73.6 Est GFR ( Amer) 100.1 Est GFR (Non-Af Amer) 86.4 BUN/Creatinine Ratio 17.8 Glucose 76 Calcium 8.4 L Methylmalonic Acid 201 Ascorbic Acid Cancelled Serum Copper 87 PG Care Time/CCT Total # of Minutes Spent Total Time Spent with Patient: Total time spent is greater than 50% in coordination of care (as documented) at patient's floor/unit and/or counseling patient: Coding Level of Care Code 84942 SUB INP/OBS CARE 2/35MIN Diagnoses Weakness R53.1 Abnormal SPEP R77.8 Acute sinusitis J01.90 Abdominal pain R10.9 ASCVD (arteriosclerotic cardiovascular disease) I25.10 Ptosis of eyelid, left H02.402 Folate deficiency E53.8 Wernicke encephalopathy E51.2 Anemia D64.9 Esophageal dysphagia R13.19 Dysphagia type: esophageal phase Severe protein-calorie malnutrition E43 (10) Dysphagia Dysphagia type: esophageal phase Qualified Code(s): R13.19 - Other dysphagia
[2023-07-13 05:57] LABS: Hematocrit (blood only) 22.6 % (42.0-52.0); Hemoglobin 7.7 g/dl (14.0-18.0); Mean Corpuscular Hemoglobin 34.5 pg (25.0-34.0); Mean Corpuscular Hgb Conc 34.1 g/dL (32.0-36.0); Mean Corpuscular Volume 101.3 fL (80.0-100.0); Mean Platelet Volume 9.9 fL (9.4-12.4); Platelet Count 262 K/uL (130-400); RDW Coefficient of Variation 12.9 % (11.5-14.5); RDW Standard Deviation 47.5 fL (36.4-46.3); Red Blood Count 2.23 M/uL (4.70-6.10); White Blood Count 5.83 K/ul (4.8-10.8)
[2023-07-13] MEDS: AMOXICILLIN/CLAVULANATE 875 MG TAB PO SCH ×2 (09:42→17:20)
[2023-07-13] MEDS: CYANOCOBALAMIN (B-12) 500 MCG TABLET PO SCH (09:42)
[2023-07-13] MEDS: THIAMINE HCL 100 MG TAB PO SCH (09:43)
[2023-07-13] MEDS: FLUTICASONE PROPIONATE NA SPR 16 GM BTL SCH (09:43)
[2023-07-13] MEDS: PANTOprazole 40 MG TAB PO SCH (09:43)
[2023-07-13] MEDS: CEROVITE ADV FORMULA TAB PO SCH (09:44)
[2023-07-13] MEDS: FOLIC ACID 1 MG TAB PO SCH (09:44)
[2023-07-13] MEDS: ESCITALOPRAM OXALATE 10 MG TAB PO SCH (09:45)
[2023-07-13] MEDS: FERROUS SULFATE 325 MG TAB PO SCH (09:45)
[2023-07-13] MEDS: predniSONE 20 MG TAB PO SCH (09:45)
[2023-07-13] MEDS: HEPARIN SOD 5,000 UNIT/0.5 ML VIAL SQ SCH ×2 (09:46→20:33)
--- NOTE | 2023-07-13 20:15 | Hospitalist Progress Note ---
Date of Service July 13, 2023 Assessment & Plan (1) Weakness: Plan: Etiology of weakness, weight loss, and failure to thrive uncertain. He has persistently elevated inflammatory markers with CRP 4-->7-->10 but now down to 2.4. ESR 71 initially, now 67. Rachel-CT over his 2 hospital stays without overt cancerous process/pathology. EGD without esophageal or gastric cancer (had esophageal ring that was dilated only). NEAL has returned + in low-titer. Speckled pattern. Uncertain of significance. Sister does have SLE. Left sided headaches and shoulder muscle weakness/myalgias --> temporal arteritis/PMR overlay?? Fortunately these symptoms have improved with prednisone over the last few days. CPK wnl. Lyme negative. MRI brain without stroke or other lesions. Remains anemic with macrocytosis - due to folate def? Bone marrow toxicity from etoh? early MDS? MM? --> SPEP with faint M-spike (see #2 below) other? Formal peripheral smear without features of myeloproliferative d/o. In light of CBC findings and weight loss, etc asked hematology to see in consult. Due to elevated inflammatory markers, myalgias, L temporal headaches (coming/going), +NEAL, ?fam hx of autoimmune disease, etc --> rheum consult. Dr Owens saw patient in consult (rheum) - advises TA biopsy, prednisone 20mg daily, and SLE labs (C3,C4, anti-dsDNA, etc). Patient does seem to have responded to the prednisone - will continue such at least until rheum labs are back and TA biopsy has been completed. I spoke with gen surg ([facility]) who can perform TA biopsy this Friday. Dr Baker from [facility] saw patient -advised bone marrow bx - will have IR do that on Friday; order placed. patient and made aware of potential BMBx tomorrow. Cont PT/OT (2) Abnormal SPEP: Plan: plan to send UPEP, serum immunofixation, etc see #1 above (3) Acute sinusitis: Plan: day #7 of abx (was on unasyn - now augmentin) stop abx today CT and MRI head without air-fluid levels to suggest acute sinus disease suspect most of what we are seeing is chronic in nature I don't think the previous left-sided headaches were sinus-related however (4) Abdominal pain: Plan: resolved he has not reported any abd pain to me yesterday or today recent CT a/p without acute pathology recent lipase, u/a, etc without abnormalities (5) ASCVD (arteriosclerotic cardiovascular disease): (6) Ptosis of eyelid, left: Plan: Chronic, has been followed by [facility] in [place] and has had several eyelid surgeries Left eye vision is intact Interestingly his ptosis is much better today - nearly normal actually (7) Folate deficiency: Plan: Continue oral folate 1mg daily although repeat level was wnl this week (8) Wernicke encephalopathy: Plan: Wernicke's encephalopathy - thiamine was low at 36 on prior admission Treated with high dose IV thiamine last admission for such Continue indefinite oral thiamine I believe his thiamine def is indicative of his overall malnutrition and not the medical delivery driver of his ongoing failure to 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 (9) Anemia: Plan: remains on folate supplementation B12 384. MMA is pending. Prior attending MD started B12 IM injections on 07/07 - received 2 doses. Will cont PO B12 1000mcg daily. in light of leukopenia, macrocytosis, neg peripheral smear, etc - bone marrow bx down the line? SPEP mildly + with M-spike seen see above alternatively his anemia could simply be due to anemia of chronic disease consulted hematology for their opinion in light of clinical picture and #1 above along with failure to thrive --> bone marrow bx recommended will attempt to get that by IR on Friday - order placed (10) Dysphagia: Plan: Esophageal dysphagia - Schatzki's ring dilated with EGD last admission, was able to eat following that, continue PPI. Nutrition improved albumin improved from 3.2 to 3.5 (11) Severe protein-calorie malnutrition: Plan: severe cachexia with severe weight loss and failure to thrive etiology uncertain as above cont MVI cont folate cont B12 cont Fe Plan PT OT updated pt's by phone this evening DVT proph - heparin 5000 BID - hold starting tomorrow morning dispo post-d/c -- [facility]?? Admission and Anticipated Discharge Date Admission Date: July 06, 2023 Subjective no issues overnight like previous visits he has pleasant confusion often asks repeated questions during the same conversation denies headaches denies myalgias eating fair per nursing flowsheets Review of Systems Review of Systems: gen - no fevers; does endorse fatigue cv - no cp, no orthopnea pulm - no dyspnea or cough GI - no abd pain Physical Exam Physical Exam: gen - cachectic, malnourished, but NAD; mild confusion eyes - ptosis L eye unchanged mouth - MMM, no oral lesions/ulcers neck - no JVD heart - RRR, s1 s2, no murmur lungs - CTA b/l abd - soft NT no HSM ext - no edema, pulses 2+ b/l skin - erythematous pustules and papules face, forehead, around nose, and neck improving neuro - strength 5/5 x 4 exts; muscle wasting noted of arms/legs Results & Data Results & Data Vital Signs (Past 12 Hours) Vital Signs Temp Pulse Resp BP Pulse Ox O2 Del Method 07/13/23 19:56 36.6 C 72 18 124/73 98 Room Air 07/13/23 15:10 36.6 C 75 16 124/74 97 Room Air Laboratory Results Laboratory Results - last 48 hr 07/12/23 07/13/23 05:38 05:44 WBC 5.64 5.83 RBC 2.23 L 2.23 L Hgb 7.7 L 7.7 L Hct 22.8 L 22.6 L MCV 102.2 H 101.3 H MCH 34.5 H 34.5 H MCHC 33.8 34.1 RDW Std Deviation 46.6 H 47.5 H RDW Coeff of Shayan 12.6 12.9 Plt Count 261 262 MPV 10.1 9.9 Immature Gran % (Auto) 3.0 Neut % (Auto) 55.1 Lymph % (Auto) 35.6 [place] % (Auto) 5.1 Eos % (Auto) 0.7 Baso % (Auto) 0.5 Neut # (Auto) 3.10 Lymph # (Auto) 2.01 [place] # (Auto) 0.29 Eos # (Auto) 0.04 Baso # (Auto) 0.03 Immature Gran # (Auto) 0.17 RBC Morphology Unremarkable ESR 67 H Sodium 137 Potassium 3.8 Chloride 105 Carbon Dioxide 26 Anion Gap 6 BUN 13 Creatinine 0.73 Est Cr Clr Drug Dosing 73.6 Est GFR ( Amer) 100.1 Est GFR (Non-Af Amer) 86.4 BUN/Creatinine Ratio 17.8 Glucose 76 Calcium 8.4 L PG Care Time/CCT Total # of Minutes Spent Total Time Spent with Patient: Total time spent is greater than 50% in coordination of care (as documented) at patient's floor/unit and/or counseling patient: Coding Level of Care Code 70360 SUB INP/OBS CARE 2/35MIN Diagnoses Weakness R53.1 Abnormal SPEP R77.8 Acute sinusitis J01.90 Abdominal pain R10.9 ASCVD (arteriosclerotic cardiovascular disease) I25.10 Ptosis of eyelid, left H02.402 Folate deficiency E53.8 Wernicke encephalopathy E51.2 Anemia D64.9 Esophageal dysphagia R13.19 Dysphagia type: esophageal phase Severe protein-calorie malnutrition E43 (10) Dysphagia Dysphagia type: esophageal phase Qualified Code(s): R13.19 - Other dysphagia
[2023-07-14 06:32] LABS: Hemoglobin 8.3 g/dl (14.0-18.0); Mean Corpuscular Hgb Conc 33.2 g/dL (32.0-36.0); Mean Corpuscular Volume 102.5 fL (80.0-100.0); Mean Platelet Volume 10.5 fL (9.4-12.4); Platelet Count 301 K/uL (130-400); RDW Coefficient of Variation 13.1 % (11.5-14.5); RDW Standard Deviation 48.6 fL (36.4-46.3); Red Blood Count 2.44 M/uL (4.70-6.10); White Blood Count 6.03 K/ul (4.8-10.8)
[2023-07-14 06:33] LABS: BUN Creatinine Ratio 28.8 (10-20); Creatinine Clr Calc Pharmacy 73.6 ml/min; Est GFR (African American) 100.1 ml/min; Est GFR (Non-African American) 86.4 ml/min; Potassium 3.9 mmol/L (3.5-5.1)
[2023-07-14] MEDS: PANTOprazole 40 MG TAB PO SCH (07:51)
[2023-07-14] MEDS: CEROVITE ADV FORMULA TAB PO SCH (07:51)
[2023-07-14] MEDS: predniSONE 20 MG TAB PO SCH (07:51)
[2023-07-14] MEDS: CYANOCOBALAMIN (B-12) 500 MCG TABLET PO SCH (07:51)
[2023-07-14] MEDS: THIAMINE HCL 100 MG TAB PO SCH (07:51)
[2023-07-14] MEDS: FLUTICASONE PROPIONATE NA SPR 16 GM BTL SCH (07:51)
[2023-07-14] MEDS: ESCITALOPRAM OXALATE 10 MG TAB PO SCH (07:51)
[2023-07-14] MEDS: FOLIC ACID 1 MG TAB PO SCH (07:51)
[2023-07-14] MEDS ORDERED: CYANOCOBALAMIN 1000 MCG/ML VIAL IM SCH (09:00)
--- NOTE | 2023-07-14 11:21 | Surgery Consultation ---
Date of Consultation July 14, 2023 Assessment & Plan (1) Headache: NPO past MN to OR for L TABx History of Present Illness Attending Physician: Binu Frias MD History of Present Illness 82YO with 1 yr of headaches and generalized muscle weakness, fatigue and failure to thrive. He has had left sided temporal headaches that come and go. He does have a significantly elevated ESR and elevated CRP Allergies Allergy/AdvReac Type Severity Reaction Status Date / Time shrimp Allergy Severe Hives and Unverified 06/04/23 18:16 GI Upset erythromycin base Allergy Unknown Unknown Unverified 06/04/23 18:16 Home Medications Medication Instructions Recorded Confirmed Type cyanocobalamin (vitamin B-12) 500 500 mcg PO QAM #0 tabs 06/09/23 07/03/23 Rx mcg tablet folic acid 1 mg tablet 1 mg PO QAM #0 tabs 06/09/23 07/03/23 Rx pantoprazole 40 mg tablet,delayed 40 mg PO QAM #0 tabs 06/09/23 07/03/23 Rx release thiamine HCl (vitamin B1) 100 mg 100 mg PO QAM #0 tabs 06/09/23 07/03/23 Rx tablet escitalopram oxalate 5 mg tablet 5 mg PO DAILY 07/03/23 07/03/23 History Patient History Medical History (Updated 07/12/23 @ 09:28 by Binu Frias MD) Wernicke encephalopathy Ptosis of eyelid, left Dupuytren's contracture of hand Social History Smoking Status: Never smoker Second Hand Exposure: No; Do You Dip or Chew Tobacco: No; Hx Alcohol Use: Yes Hx Substance Use: No Preferred Language: Eritrean Communication Ability: Effective Line Builder Required: No Beliefs That Will Affect Care: None Current Living Situation: Spouse Other Information That Helps Us Care for You: No Feels Safe at Home: Yes Safety Concerns: Feels Safe At This Time Assistive Devices: Cane and Walker Review of Systems Constitutional: + weakness and + anorexia; no fever and no chills Eyes: no problem reported Ear, Nose, Mouth, Throat: + hearing loss Respiratory: no cough and no dyspnea Cardiovascular: no chest pain Gastrointestinal: no abdominal pain Genitourinary: no dysuria Integumentary: + rash; no lesions Neurologic: + generalized weakness Hematologic / Lymphatic: no easy bleeding and no easy bruising Physical Exam Constitutional: + thin Eyes: PERRL, conjunctivae normal, anicteric sclerae ENMT: external ear and nose normal, oropharynx normal palpable left temporal artery Neck: trachea midline Respiratory: normal respiratory effort, lungs clear to auscultation no respiratory distress Cardiovascular: RRR, no murmur, no edema Gastrointestinal (Abdomen): Inspection/Auscultation: abdomen not distended Percussion/Palpation: abdomen soft; abdomen nontender Musculoskeletal: Head/Neck/Chest: normocephalic and head atraumatic Results & Data Vital Signs (Past 12 Hours) Vital Signs Temp Pulse Resp BP Pulse Ox O2 Del Method 07/14/23 08:30 Room Air 07/14/23 06:23 36.6 C 74 18 149/89 H 99 Room Air
[2023-07-14] MEDS ORDERED: ACETAMINOPHEN 1000 MG/100 ML IV IV ONE (12:00)
[2023-07-14] MEDS ORDERED: fentaNYL citrate PF 100 MCG/2 ML VIAL ONE (12:00)
--- NOTE | 2023-07-14 13:50 | CT Scan Report ---
CT-guided bone marrow biopsy INDICATION: Anemia PROCEDURE: Procedure and risks were explained. Informed consent was obtained. A final timeout was com pleted. The patient was placed prone on the CT exam table. The left gluteal region was prepped and dr aped in sterile fashion. 1% buffered lidocaine was utilized for skin anesthesia. Utilizing CT guidance, an 11-gauge bone biopsy needle was advanced into the left iliac bone. Multiple aspirates and one bone core was obtained and given to the lab. The needle was removed and Band-Aid a pplied. The patient tolerated the procedure well. Vital signs will be monitored postprocedure. IMPRESSION: Bone marrow biopsy as detailed above. Performed, dictated, and signed by Grzegorz Parr PA-C; to be co-signed by Dr. Brian Delgadillo. Electronically signed by: Brian Delgadillo M.D. 07/14/2023 3:09 PM
[2023-07-14 14:09] LABS: Basophils # (auto) 0.04 K/uL (0.00-0.20); Basophils % (auto) 0.7 %; Eosinophils # (auto) 0.05 K/uL (0.00-0.50); Eosinophils % (auto) 0.8 %; Immature Granulocytes # (auto) 0.33 K/uL (0.01-0.20); Immature Granulocytes % (auto) 5.5 %; Lymphocytes # (auto) 2.06 K/uL (1.20-3.40); Lymphocytes % (auto) 34.4 %; Monocytes # (auto) 0.33 K/uL (0.11-0.59); Monocytes % (auto) 5.5 %; Neutrophils # (auto) 3.17 K/uL (1.40-6.50); Neutrophils % (auto) 53.1 %
[2023-07-14 14:25] LABS: Bone Marrow Smear SLHOLD; RBC Morphology Unremarkable
[2023-07-14 14:42] LABS: Anti-dsDNA Recombinant 1 IU/mL
[2023-07-14 15:22] LABS: Anti-SS-A <1.0 NEG AI (<1.0 NEG); Anti-SS-B <1.0 NEG AI (<1.0 NEG); Complement C3 122 mg/dL
--- NOTE | 2023-07-14 18:53 | Hospitalist Progress Note ---
Date of Service July 14, 2023 Assessment & Plan (1) Weakness: Plan: Etiology of weakness, weight loss, and failure to thrive uncertain. He has had persistently elevated inflammatory markers with CRP 4-->7-->10 but now down to 2.4. ESR 71 initially, now 67. Rachel-CT over his 2 hospital stays without overt cancerous process/pathology. EGD without esophageal or gastric cancer (had esophageal ring that was dilated only). NEAL has returned + in low-titer. Speckled pattern. Uncertain of significance. Sister does have SLE. C3, C4, anti-dsDNA, SS-A, SS-B -- all returned negative -- SLE unlikely. Left sided headaches and shoulder muscle weakness/myalgias --> temporal arteritis/PMR overlay?? Fortunately these symptoms have improved with prednisone over the last few days. CPK wnl. Lyme negative. MRI brain without stroke or other lesions. Remains anemic with macrocytosis - due to folate def? Bone marrow toxicity from etoh? early MDS? MM? --> SPEP with faint M-spike (see #2 below) other? Formal peripheral smear without features of myeloproliferative d/o. In light of CBC findings and weight loss, etc asked hematology to see in consult. Due to elevated inflammatory markers, myalgias, L temporal headaches (coming/going), +NEAL, ?fam hx of autoimmune disease, etc --> rheum consult. Dr Owens saw patient in consult (rheum) - advises TA biopsy, prednisone 20mg daily until TA bx is done. Patient does seem to have responded to the prednisone with less headaches. Dr Baker from [facility] saw patient -advised bone marrow bx - that was completed today w/o incident. Tomorrow, 07/15 -- temporal artery bx by Dr Rodríguez. NPO after MN tonight. (2) Abnormal SPEP: Plan: SPEP with faint M-spike UPEP, serum immunofixation - pending s/p bone marrow bx today see #1 above (3) Acute sinusitis: Plan: completed 7 days of unasyn/augmentin any URI/sinus symptoms have resolved CT and MRI head without air-fluid levels to suggest acute sinus disease suspect most of what we are seeing is chronic in nature (4) Abdominal pain: Plan: resolved he has not reported any abd pain to me yesterday or today recent CT a/p without acute pathology recent lipase, u/a, etc without abnormalities (5) ASCVD (arteriosclerotic cardiovascular disease): (6) Ptosis of eyelid, left: Plan: Chronic, has been followed by [facility] in [place] and has had several eyelid surgeries Left eye vision is intact Interestingly his ptosis has been coming/going; some days has not ptosis (7) Folate deficiency: Plan: Continue oral folate 1mg daily although repeat level was wnl last week (8) Wernicke encephalopathy: Plan: Wernicke's encephalopathy - thiamine was low at 36 on prior admission Treated with high dose IV thiamine last admission for such Continue indefinite oral thiamine I believe his thiamine def is indicative of his overall malnutrition and 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 (9) Anemia: Plan: remains on folate supplementation B12 384. MMA is pending. Prior attending MD started B12 IM injections on 07/07 - received 2 doses. Will cont PO B12 1000mcg daily. in light of leukopenia, macrocytosis, neg peripheral smear, etc - bone marrow bx down the line? SPEP mildly + with M-spike seen see above alternatively his anemia could simply be due to anemia of chronic disease consulted hematology for their opinion in light of clinical picture and #1 above along with failure to thrive --> bone marrow bx recommended ; completed today, 07/14/23 (10) Dysphagia: Plan: Esophageal dysphagia - Schatzki's ring dilated with EGD last admission, was able to eat following that, continue PPI. Nutrition improved albumin improved from 3.2 to 3.5 (11) Severe protein-calorie malnutrition: Plan: severe cachexia with severe weight loss and failure to thrive etiology uncertain as above cont MVI cont folate cont B12 cont Fe Plan PT OT updated pt's by phone this evening once again DVT proph - heparin 5000 BID - on hold due to biopsies dispo post-d/c -- [facility]?? Friday of this week? discussed with social work Admission and Anticipated Discharge Date Admission Date: July 06, 2023 Subjective underwent bone marrow bx earlier in the day by IR denies any pelvic pain no new complaints he "hopes to be home for [place]" but understands he still needs rehab before returning home with his eating well denies any headaches denies myalgias Review of Systems Review of Systems: gen - no fever or chills cv - no chest pain pulm - no cough or dyspnea GI - no abd pain/nausea or emesis Physical Exam Physical Exam: gen - cachectic, malnourished, but NAD; not as confused today eyes - ptosis L eye - comes/goes mouth - MMM, no oral lesions/ulcers neck - no JVD heart - RRR, s1 s2, no murmur lungs - CTA b/l abd - soft NT no HSM ext - no edema, pulses 2+ b/l skin - erythematous pustules and papules face, forehead, around nose, and neck nearly resolved neuro - muscle wasting noted of arms/legs Results & Data Results & Data Vital Signs (Past 12 Hours) Vital Signs Temp Pulse Resp BP Pulse Ox O2 Del Method 07/14/23 14:24 36.3 C L 70 15 124/73 99 Room Air 07/14/23 12:55 77 16 131/77 100 Room Air 07/14/23 08:30 Room Air Laboratory Results Laboratory Results - last 24 hr 07/11/23 07/14/23 07/14/23 05:42 05:56 12:30 WBC 6.03 RBC 2.44 L Hgb 8.3 L Hct 25.0 L MCV 102.5 H MCH 34.0 MCHC 33.2 RDW Std Deviation 48.6 H RDW Coeff of Shayan 13.1 Plt Count 301 MPV 10.5 Immature Gran % (Auto) 5.5 Neut % (Auto) 53.1 Lymph % (Auto) 34.4 [place] % (Auto) 5.5 Eos % (Auto) 0.8 Baso % (Auto) 0.7 Neut # (Auto) 3.17 Lymph # (Auto) 2.06 [place] # (Auto) 0.33 Eos # (Auto) 0.05 Baso # (Auto) 0.04 Immature Gran # (Auto) 0.33 H RBC Morphology Unremarkable Sodium 137 Potassium 3.9 Chloride 105 Carbon Dioxide 25 Anion Gap 7 BUN 21 Creatinine 0.73 Est Cr Clr Drug Dosing 73.6 Est GFR ( Amer) 100.1 Est GFR (Non-Af Amer) 86.4 BUN/Creatinine Ratio 28.8 H Glucose 78 Calcium 9.0 SS-A/Ro Antibody <1.0 NEG SS-B/La Antibody <1.0 NEG SM/COUNTER ROLLER IgG Antibody <1.0 NEG Double Strand DNA Ab 1 Complement C3 122 Complement C4 28 BM Chromosome Analysis Pending Flow Cytometry Comment Pending PG Care Time/CCT Total # of Minutes Spent Total Time Spent with Patient: Total time spent is greater than 50% in coordination of care (as documented) at patient's floor/unit and/or counseling patient: Coding Level of Care Code 22324 SUB INP/OBS CARE 2/35MIN Diagnoses Weakness R53.1 Abnormal SPEP R77.8 Acute sinusitis J01.90 Abdominal pain R10.9 ASCVD (arteriosclerotic cardiovascular disease) I25.10 Ptosis of eyelid, left H02.402 Folate deficiency E53.8 Wernicke encephalopathy E51.2 Anemia D64.9 Esophageal dysphagia R13.19 Dysphagia type: esophageal phase Severe protein-calorie malnutrition E43 (10) Dysphagia Dysphagia type: esophageal phase Qualified Code(s): R13.19 - Other dysphagia
[2023-07-15] MEDS: FLUTICASONE PROPIONATE NA SPR 16 GM BTL SCH (08:34)
[2023-07-15] MEDS: PANTOprazole 40 MG TAB PO SCH (08:35)
[2023-07-15] MEDS: predniSONE 20 MG TAB PO SCH (08:35)
[2023-07-15] MEDS: FOLIC ACID 1 MG TAB PO SCH (08:35)
[2023-07-15] MEDS: CYANOCOBALAMIN (B-12) 500 MCG TABLET PO SCH (08:35)
[2023-07-15] MEDS: CEROVITE ADV FORMULA TAB PO SCH (08:35)
[2023-07-15] MEDS: ESCITALOPRAM OXALATE 10 MG TAB PO SCH (08:35)
[2023-07-15] MEDS: THIAMINE HCL 100 MG TAB PO SCH (08:35)
[2023-07-15] MEDS: FERROUS SULFATE 325 MG TAB PO SCH (08:35)
--- NOTE | 2023-07-15 11:24 | Anesthesiology Consultation ---
Date of Service July 15, 2023 Assessment & Plan (1) Encounter for pre-operative examination: Chart Review Chart Review: Acceptable Risk for Surgery History Surgery Operation Date: 07/15/23 12:00 Proposed Procedures p Temporal Artery Biopsy - William Rodírguez MD Height/Weight Height: 6 ft Weight: 66.7 kg Allergies Allergy/AdvReac Type Severity Reaction Status Date / Time shrimp Allergy Severe Hives and Unverified 06/04/23 18:16 GI Upset erythromycin base Allergy Unknown Unknown Unverified 06/04/23 18:16 Medications Home Medications Medication Instructions Recorded Confirmed Last Taken cyanocobalamin (vitamin B-12) 500 500 mcg PO QAM #0 tabs 06/09/23 07/03/23 Unknown mcg tablet folic acid 1 mg tablet 1 mg PO QAM #0 tabs 06/09/23 07/03/23 Unknown pantoprazole 40 mg tablet,delayed 40 mg PO QAM #0 tabs 06/09/23 07/03/23 Unknown release thiamine HCl (vitamin B1) 100 mg 100 mg PO QAM #0 tabs 06/09/23 07/03/23 Unknown tablet escitalopram oxalate 5 mg tablet 5 mg PO DAILY 07/03/23 07/03/23 Unknown Active Medications Generic Name Dose Route Start Last Admin Trade Name Freq PRN Reason Stop Dose Admin Cyanocobalamin 1,000 mcg 07/10/23 09:00 07/15/23 08:35 Cyanocobalamin (B-12) 500 Mcg Tablet PO 08/09/23 08:59 1,000 mcg QAM HENOK Administration Escitalopram Oxalate 5 mg 07/04/23 09:00 07/15/23 08:35 Escitalopram Oxalate 10 Mg Tab PO 08/03/23 08:59 5 mg DAILY HENOK Administration Ferrous Sulfate 325 mg 07/05/23 09:00 07/15/23 08:35 Ferrous Sulfate 325 Mg Tab PO 08/04/23 08:59 325 mg Q48H HENOK Administration Fluticasone Propionate 2 sprays 07/06/23 13:45 07/15/23 08:34 Fluticasone Propionate Na Spr 16 Gm Btl NA 08/05/23 13:44 2 sprays DAILY HENOK Administration Folic Acid 1 mg 07/04/23 09:00 07/15/23 08:35 Folic Acid 1 Mg Tab PO 08/03/23 08:59 1 mg QAM HENOK Administration Heparin Sodium (Porcine) 5,000 units 07/09/23 11:10 07/13/23 20:33 Heparin Sod 5,000 Unit/0.5 Ml Vial SQ 08/08/23 11:09 5,000 units Q12 HENOK Administration Multivitamins/Minerals 1 tab 07/07/23 09:00 07/15/23 08:35 Cerovite Adv Formula Tab PO 08/06/23 08:59 1 tab QAM HENOK Administration Pantoprazole Sodium 40 mg 07/04/23 09:00 07/15/23 08:35 Pantoprazole 40 Mg Tab PO 08/03/23 08:59 40 mg QAM HENOK Administration Prednisone 20 mg 07/11/23 09:00 07/15/23 08:35 Prednisone 20 Mg Tab PO 08/10/23 08:59 20 mg QAM HENOK Administration Thiamine HCl 100 mg 07/04/23 09:00 07/15/23 08:35 Thiamine Hcl 100 Mg Tab PO 08/03/23 08:59 100 mg QAM HENOK Administration Past Medical History Medical History (Updated 07/15/23 @ 11:26 by Siva Alcantar MD) Headache Anemia Severe protein-calorie malnutrition Wernicke encephalopathy Ptosis of eyelid, left Dupuytren's contracture of hand Past Surgical History Surgical History (Updated 07/15/23 @ 11:24 by Siva Alcantar MD) History of esophagogastroduodenoscopy (EGD) Social History Smoking Status: Never smoker Do You Dip or Chew Tobacco: No Hx Alcohol Use: Yes alcohol intake frequency: 0-2 drinks per day Hx Substance Use: No substance use type: does not use Physical Exam Vital Signs Last Vital Signs Temp 36.4 C L 07/15/23 07:55 Pulse 79 07/15/23 07:55 Resp 14 07/15/23 07:55 BP 145/85 H 07/15/23 07:55 Pulse Ox 100 07/15/23 07:55 O2 Del Method Room Air 07/15/23 07:55 Testing Laboratory Results 07/14/23 05:56 07/14/23 05:56 PT 10.5 Seconds (9.0-12.0) 07/03/23 17:23 INR 1.0 (0.9-1.1) 07/03/23 17:23 APTT 27.6 Seconds (21.0-31.0) 07/03/23 17: Urine Color Dark Yellow 07/03/23 23:44 Urine Appearance Clear (Clear) 07/03/23 23:44 Urine pH 6.5 (4.5-7.5) 07/03/23 23:44 Ur Specific [place] 1.021 (1.000-1.030) 07/03/23 23:44 Urine Protein Negative (Negative) 07/03/23 23:44 Urine Glucose (UA) Negative (Negative) 07/03/23 23:44 Urine Ketones Negative (Negative) 07/03/23 23:44 Urine Nitrite Negative (Negative) 07/03/23 23:44 Ur Leukocyte Esterase 1+ (Negative) H 07/03/23 23:44 Urine WBC (Auto) 10-30 /hpf (0-5) H 07/03/23 23:44 Urine RBC (Auto) 0-4 /hpf (0-4) 07/03/23 23:44 U Hyaline Cast (Auto) 0 /lpf (0-5) 07/03/23 23:44 U Epithel Cells (Auto) >30 /lpf (0-5) H 07/03/23 23:44 Urine Bacteria (Auto) Negative (Negative) 07/03/23 23:44 Blood Type O Positive 07/04/23 12:54 Antibody Screen NEGATIVE 07/04/23 12:54 07/04/23 19:25 Aerobic Blood Culture - Final Blood No growth in Aerobic bottle after 5 days. Anaerobic Blood Culture - Final No growth in Anaerobic bottle after 5 days. 07/04/23 19:33 Aerobic Blood Culture - Final Blood No growth in Aerobic bottle after 5 days. Anaerobic Blood Culture - Final No growth in Anaerobic bottle after 5 days. 07/03/23 17:23 Aerobic Blood Culture - Final Blood No growth in Aerobic bottle after 5 days. Anaerobic Blood Culture - Final No growth in Anaerobic bottle after 5 days. 07/03/23 17: Aerobic Blood Culture - Final Blood No growth in Aerobic bottle after 5 days. Anaerobic Blood Culture - Final No growth in Anaerobic bottle after 5 days. 07/03/23 23:44 Urine Culture - Final Urine,Straight Cath No growth - less than 1,000 colonies/mL. Electrocardiogram Date: 07/05/23 Findings: + poor R wave progression and + ST @ (112) PVC's Echocardiogram Date: 06/06/23 EF: 60-65% LV Function: normal Valvular Disease: + no significant valvular disease
[2023-07-15] MEDS ORDERED: ATROPINE SULFATE 0.1 MG/ML 10ML SYR IV PRN (11:43)
[2023-07-15] MEDS ORDERED: fentaNYL citrate PF 100 MCG/2 ML VIAL IV PRN (11:43)
[2023-07-15] MEDS ORDERED: LABETALOL HCL IV 5 MG/ML 20ML IV PRN (11:43)
--- NOTE | 2023-07-15 11:59 | History & Physical Bridge Note ---
Date of Service July 15, 2023 History & Physical Bridge Note I have examined the patient, reviewed the History & Physical and in the interval since the performance of the History & Physical I have noted the following changes of clinical significance: no changes noted
[2023-07-15] MEDS ORDERED: fentaNYL citrate PF 100 MCG/2 ML VIAL ONE (12:06)
[2023-07-15] MEDS ORDERED: MIDAZOLAM HCL 1 MG/ML 2ML VIAL ONE (12:06)
[2023-07-15] MEDS ORDERED: DEXAMETHASONE SOD INJ 4 MG/ML VIAL ONE (12:06)
[2023-07-15] MEDS ORDERED: PROPOFOL IV EMULSION 10 MG/ML 20 ML VIAL IV ONE ×3 (12:06→12:09)
[2023-07-15] MEDS ORDERED: ONDANSETRON INJ 2 MG/ML 2 ML VIAL ONE (12:06)
[2023-07-15] MEDS ORDERED: LIDOCAINE 2% 2 ML VIAL/AMP(20MG/ML) INFIL ONE (12:06)
[2023-07-15] MEDS ORDERED: LIDOCAINE 1%/EPINEPHRINE 1:100,000 20 ML VIAL ONE (12:36)
--- NOTE | 2023-07-15 13:17 | Post Operative Brief Note ---
Immediate Post Op Note v1 Date of Surgery July 15, 2023 Pre & Post Diagnosis Operation Date: 07/15/23 12:00 Pre-Op Diagnosis: WEAKNESS Post-Op Diagnosis: WEAKNESS I identified the patient and participated in the time-out.: Yes Procedure Operation Date: 07/15/23 12:00 Actual Procedures p Temporal Artery Biopsy(Left) - William Rodríguez MD Surgeon William Rodríguez MD Guardian Family Member None Estimated Blood Loss 2 Findings Consistent with Post-Op Diagnosis
--- NOTE | 2023-07-15 13:21 | Operative Report ---
Post Operative Report Pre & Post Diagnosis Operation Date: 07/15/23 12:00 Pre-Op Diagnosis: WEAKNESS Post-Op Diagnosis: WEAKNESS I identified the patient and participated in the time-out.: Yes Procedure Operation Date: 07/15/23 12:00 Actual Procedures p Temporal Artery Biopsy(Left) - William Rodríguez MD Surgeon William Rodríguez MD Photographer Portrait None Estimated Blood Loss 2 Findings Consistent with Post-Op Diagnosis Normal-appearing artery. Specimens Left temporal artery sent for pathologic diagnosis Drains None Anesthesia Type MAC Complications None Indications This is an 82-year-old male with a history of left-sided headaches, an elevated sed rate and weakness. He was referred for left temporal artery biopsy. I explained the risks of not finding the artery, infection, and bleeding. Description of Procedure Patient was taken the OR and underwent excellent monitored anesthetic care. His left gnosticism area was prepped and draped normal sterile fashion. Xylocaine was used to create a local field block. An incision was made over previously located temporal artery. Dissection was taken down to identify the artery. This was then dissected free. A clip reduction plant supervisor was used to clip distally on the artery. Another clip was placed proximally and a portion of the artery was sent for pathologic evaluation. There was a small branch was which was also clipped and removed to send for pathologic evaluation. The cavity was irrigated. There was no active bleeding noted. A running nylon suture was used to close the skin. Patient was sent to the postop recovery period of observation and be sent to the floor for his care. I attest to the content of the Intraoperative Record and any orders documented therein. Any exceptions are noted below.
--- NOTE | 2023-07-15 14:01 | Anesthesiology Progress Note ---
Date of Service July 15, 2023 Anesthesia Post Procedure Vital Signs Vital Signs: Temp Pulse Pulse Resp BP Pulse Ox O2 Del Method 07/15/23 13:35 86 16 118/68 97 Room Air 07/15/23 13:25 85 20 112/71 97 Room Air 07/15/23 13:19 36.5 C 94 H 19 112/71 98 Room Air 07/15/23 11:20 36.5 C 60 18 164/86 H 99 Room Air 07/15/23 07:55 36.4 C L 79 14 145/85 H 100 Room Air 07/14/23 23:04 36.4 C L 68 16 151/81 H 99 Room Air 07/14/23 22:45 Room Air 07/14/23 14:24 36.3 C L 70 15 124/73 99 Room Air Transfer of Care Handoff Completed per policy Notes Mental Status: alert / awake / arousable Patient Amnestic to Procedure: Yes Nausea / Vomiting: adequately controlled Pain: adequately controlled Airway Patency, RR, SpO2: stable & adequate BP & HR: stable & adequate Hydration State: stable & adequate Anesthetic Complications: no major complications apparent
[2023-07-15] MEDS ORDERED: oxyCODONE/ACETAMINOPHEN 5mg/325mg TAB PO PRN ×2 (14:29)
--- NOTE | 2023-07-15 18:06 | Hospitalist Progress Note ---
Date of Service July 15, 2023 Assessment & Plan (1) Weakness: Plan: Etiology of weakness, weight loss, and failure to thrive uncertain. He has had persistently elevated inflammatory markers with CRP 4-->7-->10 but now down to 2.4. ESR 71 initially, now 67. Rachel-CT over his 2 hospital stays without overt cancerous process/pathology. EGD without esophageal or gastric cancer (had esophageal ring that was dilated only). NEAL has returned + in low-titer. Speckled pattern. Uncertain of significance. Sister does have SLE. C3, C4, anti-dsDNA, SS-A, SS-B -- all returned negative -- SLE unlikely. Left sided headaches and shoulder muscle weakness/myalgias --> temporal arteritis/PMR overlay?? Fortunately these symptoms have improved with prednisone over the last few days. CPK wnl. Lyme negative. MRI brain without stroke or other lesions. Remains anemic with macrocytosis - due to folate def? Bone marrow toxicity from etoh? early MDS? MM? --> SPEP with faint M-spike (see #2 below) Formal peripheral smear without features of myeloproliferative d/o. In light of CBC findings and weight loss, etc asked hematology to see in consult. Due to elevated inflammatory markers, myalgias, L temporal headaches (coming/going), +NEAL, ?fam hx of autoimmune disease, etc --> rheum consult. Dr Owens saw patient in consult (rheum) - advised TA biopsy which was completed 07/15, await pathology, prednisone 20mg daily until resulted Patient does seem to have responded to the prednisone with less headaches, improvement in appetite and constitutional symptoms and interestingly his left eye ptosis seems to have improved. Dr Baker from [facility] saw patient -advised bone marrow bx - that was completed today w/o incident. discussed with Dr. Baker today anticipate discharge to rehab tomorrow and follow-up with rheumatology and hematology for the above results (2) Abnormal SPEP: Plan: SPEP with faint M-spike UPEP, serum immunofixation - pending s/p bone marrow bx 07/[address] Baker see #1 above (3) Acute sinusitis: Plan: completed 7 days of unasyn/augmentin any URI/sinus symptoms have resolved CT and MRI head without air-fluid levels to suggest acute sinus disease suspect most of what we are seeing is chronic in nature (4) Abdominal pain: Plan: resolved he has not reported any further abdominal pain and nausea/vomiting resovled recent CT a/p without acute pathology recent lipase, u/a, etc without abnormalities states good appetite today (5) ASCVD (arteriosclerotic cardiovascular disease): (6) Ptosis of eyelid, left: Plan: Chronic, has been followed by [facility] in [place] and has had several eyelid surgeries Left eye vision is intact Interestingly his ptosis has been coming/going; some days has not ptosis (7) Folate deficiency: Plan: Continue oral folate 1mg daily although repeat level was wnl last week (8) Wernicke encephalopathy: Plan: Wernicke's encephalopathy - thiamine was low at 36 on prior admission Treated with high dose IV thiamine last admission for such Continue indefinite oral thiamine I believe his thiamine def is indicative of his overall malnutrition and not the contract driver of his ongoing failure to 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 (9) Anemia: Plan: remains on folate supplementation B12 384. MMA is pending. Prior attending MD started B12 IM injections on 07/07 - received 2 doses. Will cont PO B12 1000mcg daily. SPEP mildly + with M-spike seen see above alternatively his anemia could simply be due to anemia of chronic disease consulted hematology for their opinion in light of clinical picture and #1 above along with failure to thrive --> bone marrow bx recommended; completed 07/14/23 (10) Dysphagia: Plan: Esophageal dysphagia - Schatzki's ring dilated with EGD last admission, was able to eat following that, continue PPI. Nutrition improved albumin improved from 3.2 to 3.5 (11) Severe protein-calorie malnutrition: Plan: severe cachexia with severe weight loss and failure to thrive etiology uncertain as above cont MVI cont folate cont B12 cont Fe Plan PT OT updated pt's in room 07/15 DVT proph - heparin 5000 BID - on hold due to biopsies Admission and Anticipated Discharge Date Admission Date: July 06, 2023 Subjective Mr Alvarez is doing much better than when I saw him a week ago. I saw him postop from his temporal artery biopsy. His was in the room with him. He stated that he was hungry and had already eaten some Jell-O and was looking forward to dinner so appetite is much improved. We also noticed that his left eye ptosis is significantly improved in fact not apparent right now. He is feeling stronger he denies any pain Physical Exam Physical Exam: PHYSICAL EXAMINATION Last 24h vital signs reviewed, see documentation in flowsheet General: looks much better than 1 week ago he is sitting up in bed he looks much stronger his color is better he is more alert HEENT: Normocephalic, atraumatic, pupils round and equal, sclerae anicteric, no conjunctival injection, moist mucus membranes L eye ptosis is not apparent currently he has a surgical dressing present over his left temporal artery area and this is clean dry and intact with no strikethrough Lungs: Normal respiratory effort. Clear to auscultation bilaterally. No RRW Heart: Regular rate and rhythm, no murmurs. No JVD Abdomen: scaphoid, soft, no tenderness no rrg +BT -unchanged Extremities: Warm, dry, well-perfused. No extremity edema. Sarcopenia. Neuro: Alert and oriented x hospital and to situation he is much more verbal and is joking with me, face symmetric, moves 4 extremities well Psych: normal affect and behavior Results & Data Results & Data Vital Signs (Past 12 Hours) Vital Signs Temp Pulse Pulse Resp BP Pulse Ox O2 Del Method 07/15/23 16:26 36.7 C 86 16 127/75 100 Room Air 07/15/23 16:01 36.4 C L 76 20 112/68 100 Room Air 07/15/23 15:28 36.3 C L 74 20 119/70 98 Room Air 07/15/23 15:00 36.5 C 78 16 127/74 96 Room Air 07/15/23 14:29 36.5 C 77 18 121/72 98 Room Air 07/15/23 14:10 78 15 125/73 96 Room Air 07/15/23 13:55 36.2 C L 78 12 123/70 96 Room Air 07/15/23 13:45 84 15 122/70 97 Room Air 07/15/23 13:35 86 16 118/68 97 Room Air 07/15/23 13:25 85 20 112/71 97 Room Air 07/15/23 13:19 36.5 C 94 H 19 112/71 98 Room Air 07/15/23 11:20 36.5 C 60 18 164/86 H 99 Room Air 07/15/23 07:55 36.4 C L 79 14 145/85 H 100 Room Air PG Care Time/CCT Total # of Minutes Spent Total Time Spent with Patient: Total time spent is greater than 50% in coordination of care (as documented) at patient's floor/unit and/or counseling patient: Coding Level of Care Code 42964 SUB INP/OBS CARE 2/35MIN Diagnoses Weakness R53.1 Abnormal SPEP R77.8 Acute sinusitis J01.90 Abdominal pain R10.9 ASCVD (arteriosclerotic cardiovascular disease) I25.10 Ptosis of eyelid, left H02.402 Folate deficiency E53.8 Wernicke encephalopathy E51.2 Anemia D64.9 Esophageal dysphagia R13.19 Dysphagia type: esophageal phase Severe protein-calorie malnutrition E43 (10) Dysphagia Dysphagia type: esophageal phase Qualified Code(s): R13.19 - Other dysphagia
[2023-07-15] MEDS: HEPARIN SOD 5,000 UNIT/0.5 ML VIAL SQ SCH (20:59)
[2023-07-16] MEDS: FLUTICASONE PROPIONATE NA SPR 16 GM BTL SCH (08:29)
[2023-07-16] MEDS: FOLIC ACID 1 MG TAB PO SCH (08:30)
[2023-07-16] MEDS: CYANOCOBALAMIN (B-12) 500 MCG TABLET PO SCH (08:30)
[2023-07-16] MEDS: ESCITALOPRAM OXALATE 10 MG TAB PO SCH (08:30)
[2023-07-16] MEDS: CEROVITE ADV FORMULA TAB PO SCH (08:30)
[2023-07-16] MEDS: PANTOprazole 40 MG TAB PO SCH (08:31)
[2023-07-16] MEDS: THIAMINE HCL 100 MG TAB PO SCH (08:31)
[2023-07-16] MEDS: predniSONE 20 MG TAB PO SCH (08:31)
--- NOTE | 2023-07-16 08:41 | Discharge Summary ---
Date of Service July 16, 2023 Admission HPI Per Admitting Provider Ahmet Alvarez is an 82yo male presenting from home with report of generalized weakness. Patient was recently admitted to [facility] from 06/04/23 - 06/09/23 with similar complaints, weakness, fatigue and dysphagia - found to have a Schatzki's ring on EGD 06/06/23 which was dilated. He was discharged to acute rehab. Patient is brought to the ER by his family. Reportedly was too weak to stand. He has had progressive weakness and LLQ pain over the last several days. Patient is asleep at this time and does not offer any details of events prior to arrival. Principal Diagnosis weakness and failure to thrive, possible polymyalgia rheumatica or temporal arteritis, anemia Discharge Exam PHYSICAL EXAMINATION Last 24h vital signs reviewed, see documentation in flowsheet exam unchanged 07/16: General: looks much better than 1 week ago he is sitting up in bed he looks much stronger his color is better he is more alert HEENT: Normocephalic, atraumatic, pupils round and equal, sclerae anicteric, no conjunctival injection, moist mucus membranes L eye ptosis is only slight currently he has a surgical dressing present over his left temporal artery area and this is clean dry and intact with no strikethrough, mild flat ecchymosis surrounding Lungs: Normal respiratory effort. Clear to auscultation bilaterally. No RRW Heart: Regular rate and rhythm, no murmurs. No JVD Abdomen: scaphoid, soft, no tenderness no rrg +BT -unchanged Extremities: Warm, dry, well-perfused. No extremity edema. Sarcopenia. Neuro: Alert and oriented x 4 and to situation he is much more verbal, face symmetric, moves 4 extremities well Psych: normal affect and behavior Discharge Data Allergies Allergy/AdvReac Type Severity Reaction Status Date / Time shrimp Allergy Severe Hives and Unverified 06/04/23 18:16 GI Upset erythromycin base Allergy Unknown Unknown Unverified 06/04/23 18:16 Consultations 07/04/23 03:20 ED Decision to Admit Stat 07/10/23 07:44 Consult Rheumatology Routine 07/11/23 13:38 Consult Hematology Routine 07/14/23 08:00 Consult General Surgery Routine Procedures Performed Operation Date: 07/15/23 12:00 Actual Procedures p Temporal Artery Biopsy(Left) - William Rodríguez MD Ordered Studies 07/03/23 21:21 CT Abd and Pelvis [CT abd pelvis IV con only] Stat 07/06/23 14:22 CT sinus wo con Routine 07/08/23 12:04 MR brain wo/w con Routine 07/13/23 11:29 IR bone marrow bx & asp Routine Chest X-Ray 07/03/23 16:14 XR chest 1V not portable CLINICAL HISTORY: Weakness TECHNIQUE: Single frontal radiograph of the chest was obtained. Comparison: None available at the time of this dictation. FINDINGS: No lines and tubes are seen. The cardiomediastinal silhouette is normal. The lungs are clear. No evidence of pleural effusion or pneumothorax. IMPRESSION: No acute chest disease. ACT 112: Negative or not required by law. Electronically signed by: Jerome Mendoza M.D. 07/03/2023 4:55 PM Abdomen/Pelvis CT 07/03/23 21:21 Exam(s): CT ABDOMEN + PELVIS With Contrast IV Amt: 83 ml optiray 320 EXAM: CT Abdomen and Pelvis With Intravenous Contrast CLINICAL HISTORY: Reason for exam: LLQ pain. TECHNIQUE: Axial computed tomography images of the abdomen and pelvis with intravenous contrast. CTDI is 15.66 mGy and DLP is 748.61 mGy-cm. Automated exposure control was utilized for the study. A dose lowering technique was utilized adhering to the principles of ALARA. CONTRAST: Patient received 83 ml optiray 320 of IV contrast COMPARISON: No relevant prior studies available. FINDINGS: Lung bases: Unremarkable. No mass. No consolidation. ABDOMEN: Liver: Unremarkable. No mass. Gallbladder and bile ducts: Unremarkable. No calcified stones. No ductal dilation. Pancreas: Unremarkable. No mass. No ductal dilation. Spleen: Calcified splenic granuloma. Adrenals: Unremarkable. No mass. Kidneys and ureters: Unremarkable. No solid mass. No hydronephrosis. Stomach and bowel: Diverticulosis, without acute diverticulitis. No small bowel obstruction. No free intraperitoneal air. PELVIS: Appendix: Normal appendix. Bladder: Unremarkable. No mass. Reproductive: Unremarkable as visualized. ABDOMEN and PELVIS: Intraperitoneal space: Unremarkable. No free air. No significant fluid collection. Bones/joints: Degenerative changes of the spine. No acute fracture. No dislocation. Soft tissues: Unremarkable. Vasculature: Atherosclerotic changes of the aorta. No abdominal aortic aneurysm. Lymph nodes: Unremarkable. No enlarged lymph nodes. IMPRESSION: No acute findings in the abdomen or pelvis. Electronically signed by: Abhi Hinojosa MD 07/03/23 22:[address] 07/06/23 14:22 Exam(s): CT SINUSES EXAM: CT Maxillofacial Sinuses Without Intravenous Contrast CLINICAL HISTORY: Reason for exam: frontal headache, infectious symptoms, sinusitis. TECHNIQUE: Computed tomography images of the maxillofacial sinuses without intravenous contrast. Automated exposure control was utilized for the study. A dose lowering technique was utilized adhering to the principles of ALARA. COMPARISON: No relevant prior studies available. FINDINGS: Maxillary sinuses: Unremarkable. No air-fluid levels. Other sinuses: There is mucosal thickening seen in the right frontal, right sphenoidal and right ethmoidal sinuses there is a 3.1 cm diameter oval density 8 causing expansion of the right upper nasal cavity and right ethmoidal sinus. No air-fluid levels. Mastoid air cells: There is partial opacification of bilateral mastoid air cells. Bones/joints: No acute fracture. IMPRESSION: 1. CT findings are suggestive of sinusitis and mastoiditis. 2. 3.1 cm oval density in the right nasal cavity and right ethmoidal sinus could be from mucous retention cyst or a polyp Electronically signed by: Capo Gallardo MD 07/06/23 22:10 PM Brain MRI 07/08/23 12:04 MRI OF THE BRAIN COMBO CLINICAL HISTORY: Left-sided headaches. COMPARISON STUDY: CT of the brain dated 12/07/2022. MRI of the brain dated 12/15/2007. TECHNIQUE: MRI of the brain was performed utilizing various T1 and T2-weighted sequences in the axial, sagittal, and coronal planes. Contrast-enhanced sequences were acquired following the administration of 6.7 cc of Gadavist. FINDINGS: Brain parenchyma: There is age related involutional change noting moderate subcortical and periventricular microangiopathic disease. There is no hemorrhage or mass effect. There is no restricted diffusion to suggest acute ischemia. No enhancing mass lesion is identified on the postcontrast images. Galindo-white matter differentiation is preserved. No extra-axial fluid collection is seen. The cerebellar tonsils are normal in configuration. Ventricles, sulci, and cisterns: Prominent secondary to involutional change. Pituitary and sella: Partially empty sella is incidentally noted. Intracranial vasculature: Normal flow voids are maintained at the skull base. Orbits: The bony orbits are grossly intact. Orbital contents are normal in appearance noting bilateral ocular lens implants. Sinuses and mastoids: There is subtotal opacification of the right ethmoid sinuses. A 3.[address]ructure extending into the right nasal cavity may represent a large polyp. There is a retention cyst in the right sphenoid sinus. There is near-complete opacification of the right frontal sinus. There are small mastoid effusions, left larger than right. Calvarium: Unremarkable. Cervical cord: Partially visualized cervical spinal cord is normal in morphology and signal intensity. IMPRESSION: 1. No acute intracranial abnormality. 2. Paranasal sinus disease as above with a large ovoid structure extending into the right nasal cavity. This may represent a polyp. Correlate with direct visualization. ACT 112: Negative or not required by law. Electronically signed by: Vladislav Wang M.D. 07/08/2023 1:44 PM Bone Marrow Biopsy w/ CT 07/13/23 11:29 CT-guided bone marrow biopsy INDICATION: Anemia PROCEDURE: Procedure and risks were explained. Informed consent was obtained. A final timeout was completed. The patient was placed prone on the CT exam table. The left gluteal region was prepped and draped in sterile fashion. 1% buffered lidocaine was utilized for skin anesthesia. Utilizing CT guidance, an 11-gauge bone biopsy needle was advanced into the left iliac bone. Multiple aspirates and one bone core was obtained and given to the lab. The needle was removed and Band-Aid applied. The patient tolerated the procedure well. Vital signs will be monitored postprocedure. IMPRESSION: Bone marrow biopsy as detailed above. Performed, dictated, and signed by Grzegorz Parr PA-C; to be co-signed by Dr. Brian Delgadillo. Electronically signed by: Brian Delgadillo M.D. 07/14/2023 3:09 PM 07/14/23 05:56 07/14/23 05:56 Hospital Course (1) Weakness: Etiology of weakness, weight loss, and failure to thrive uncertain. He has had persistently elevated inflammatory markers with CRP 4-->7-->10 but now down to 2.4. ESR 71 initially, now 67. Rachel-CT over his 2 hospital stays without overt cancerous process/pathology. EGD without esophageal or gastric cancer (had esophageal ring that was dilated only). NEAL has returned + in low-titer. Speckled pattern. Sister does have SLE. C3, C4, anti-dsDNA, SS-A, SS-B -- all returned negative -- SLE unlikely. Left sided headaches and shoulder muscle weakness/myalgias --> temporal arteritis/PMR overlay?? Fortunately these symptoms have improved much with prednisone over the last few days as has his general well-being. CPK wnl. Lyme negative. MRI brain without stroke or other lesions. Remains anemic with macrocytosis - due to folate def? Bone marrow toxicity from etoh? early MDS? MM? --> SPEP with faint M-spike (see #2 below) Formal peripheral smear without features of myeloproliferative d/o. In light of CBC findings and weight loss, etc asked hematology to see in consult. Due to elevated inflammatory markers, myalgias, L temporal headaches (coming/going), +NEAL, ?fam hx of autoimmune disease, etc --> rheum consult. Dr Owens saw patient in consult (rheum) - advised TA biopsy which was completed 07/15, await pathology, prednisone 20mg daily until resulted, follow up with Dr. Owens Patient does seem to have responded to the prednisone with less headaches, improvement in appetite and constitutional symptoms and interestingly his left eye ptosis seems to have improved. Dr Baker from [facility] saw patient -advised bone marrow bx - that was completed 07/15 w/o incident. discussed with Dr. Baker 07/15 - follow up results as outpatient -will need to follow up with general surgeon in 2 weeks for postop check and suture removal -dry dressing change PRN Studies: Radiology as above NEAL positive 1:80, nuclear, speckled A anti-Ro, anti-La, [employer] negative, dsDNA 1, complement C3/C4 normal Lyme IgG, IgM negative SPEP - faint indistinct bands present, likely reactive but cannot exclude clonal population Studies pending at discharge: UPEP Bone marrow biopsy for chromosomal analysis and flow cytometry Left temporal artery biopsy (2) Abnormal SPEP: SPEP with faint M-spike UPEP, serum immunofixation - pending s/p bone marrow bx 07/[address] Baker see #1 above (3) Acute sinusitis: completed 7 days of unasyn/augmentin any URI/sinus symptoms have resolved continue flonase CT and MRI head without air-fluid levels to suggest acute sinus disease suspect most of what we are seeing is chronic in nature (4) Abdominal pain: early hospital course had episode of nausea/vomiting and loss of appetite CT a/p without acute pathology CMP lipase, u/a, etc without abnormalities and exam remained benign resolved. he has not reported any further abdominal pain and nausea/vomiting resolved appetite restored improved after starting prednisone now eating well again (5) ASCVD (arteriosclerotic cardiovascular disease): extensive seen on CT images (6) Ptosis of eyelid, left: Chronic, has been followed by [facility] [place] and has had several eyelid surgeries Left eye vision is intact Interestingly his ptosis has been coming/going; some days has not ptosis, seems improved (7) Folate deficiency: Continue oral folate 1mg daily although repeat level was wnl last week (8) Wernicke encephalopathy: Wernicke's encephalopathy - thiamine was low at 36 on prior admission Treated with high dose IV thiamine last admission for such Continue indefinite oral thiamine I believe his thiamine def is indicative of his overall malnutrition and 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 (9) Anemia: remains on folate supplementation B12 384. Prior attending MD started B12 IM injections on 07/07 - received 2 doses. MMA level resulted normal. Will cont PO B12 1000mcg daily. SPEP mildly + with M-spike seen see above treated with venofer 3 doses last admission. alternatively his anemia could simply be due to anemia of chronic disease he should follow up with [facility] gastroenterology for outpatient colonoscopy and follow up of Schatzki's ring consulted hematology for their opinion in light of clinical picture and #1 above along with failure to thrive --> bone marrow bx recommended; completed 07/14/23 (10) Dysphagia: Esophageal dysphagia - Schatzki's ring dilated with EGD last admission, was able to eat following that, continue PPI. Nutrition improved albumin improved from 3.2 to 3.5 (11) Severe protein-calorie malnutrition: severe cachexia with severe weight loss and failure to thrive etiology uncertain as above cont MVI cont folate cont B12 cont Fe Plan PT OT updated pt's in room last 07/15 Total Time Total Time Spent Total Time Spent (In Minutes): I spent 45 minutes coordinating care for discharge today including discussion with bedside RN, care coord, surgical team, reviewing chart vitals labs studies, examining and counseling patient, writing discharge orders and documentaiton. Discharge Plan Discharge Items Patient Disposition: Transfer Inpatient Rehab Fac Reason For Visit: WEAKNESS Discharge Diagnosis: Generalized weakness and failure to thrive, possible PMR or temporal arteritis, clinically improved on steroids, anemia, thiamine deficiency, sinusitis Activity: Resume your previous activity Non-emergency contact: Primary Care Provider Call non-emergency contact if: you have any medication questions and your symptoms worsen Follow-up/Referrals: William Rodríguez MD [Physician] - (in 2 weeks for postop check and suture removal - L temporal artery biopsy site) Sea Roberts [Primary Care Provider] - Sea Owens MD [Physician] - Andrei Baker MD [Physician] - Diet: Regular Diet Comment: soft diet (history of dysphagia due to schatzki's ring, dilated last month) Addtl Attending Provider Instructions: PT and OT evaluate and treat Studies pending at discharge: UPEP Bone marrow biopsy (done) - results pending for chromosomal analysis and flow cytometry Left temporal artery biopsy (done 07/15) - pathology pending for evaluation of possible temporal arteritis Follow up with Dr. Rodríguez in 2 weeks for postop check and suture removal - L temporal artery biopsy site Please schedule follow up with Dr. Baker for anemia, bone marrow biopsy results Please schedule follow up with [place] Dr. Owens for possible PMR or temporal arteritis, follow up of temporal artery biopsy -meanwhile continue trial of prednisone 20 mg daily Please schedule follow up with [facility] gastroenterology for evaluation of iron deficiency anemia and follow up of previous EGD/dilation of Schatzki's ring in 06/2023 -continue PPI and soft diet Continue indefinite oral thiamine and folate replacement for confirmed thiamine and folate deficiency Recommend checking CBC ESR and CRP in 1-2 weeks Note: left eyelid ptosis is chronic and tends to wax and wane Pending Studies at Discharge: Yes Studies:: see above Stand-Alone Forms: My [facility] Sk[facility] Patient informed of condition?: Yes DNR: No Discharge Level of Care: Acute rehab Communicable Disease: No Discharge Prognosis: Improving Lines: None Urinary Catheter: No Medications and DC Order Prescriptions: New ferrous sulfate 325 mg (65 mg iron) Tablet,Delayed Release (Dr/Ec) 325 mg PO Q48H Qty: 0 0RF acetaminophen 325 mg Tablet 650 mg PO Q4H PRNQty: 0 0RF polyvinyl alcohol [Artificial Tears (polyvin alc)] 1.4 % Drops 1 drp OPB QID PRN (Reason: dry eyes) Qty: 0 0RF fluticasone propionate 50 mcg/actuation [place],Suspension 2 spray NA DAILY Qty: 0 0RF polyethylene glycol 3350 [Miralax] 17 gram Powder In Packet 17 g PO DAILY PRN (Reason: constipation) Qty: 0 0RF prednisone 20 mg Tablet 20 mg PO QAM Qty: 0 0RF cyanocobalamin (vitamin B-12) 500 mcg Tablet 1,000 mcg PO QAM Qty: 0 0RF Cerovite Senior 0.4 mg-300 mcg- 250 mcg Tablet 1 tab PO QAM Qty: 0 0RF Continued pantoprazole 40 mg Tablet,Delayed Release (Dr/Ec) 40 mg PO QAM Qty: 0 0RF folic acid 1 mg Tablet 1 mg PO QAM Qty: 0 0RF thiamine HCl (vitamin B1) 100 mg Tablet 100 mg PO QAM Qty: 0 0RF escitalopram oxalate 5 mg tablet 5 mg PO DAILY Discontinued cyanocobalamin (vitamin B-12) 500 mcg Tablet 500 mcg PO QAM Qty: 0 0RF Discharge Orders: Discharge Order (Routine); Ordered 07/16/23 Ordered By: Peggy Díaz/Other Patient Handouts: Dysphagia Diet- Managing Drinks, Dysphagia Diet- Managing Foods Admission Data Admit Date/Time: 07/06/23 09:22 Attending Provider: Peggy Lord Admit Provider: Brooklyn Shi Primary Care Provider: Sea Roberts Other Providers: [facility]; Brooklyn Shi; Sea Owens; Andrei Baker; Carlos Ansari; Luis Parekh; Blessing Simmons; Ant Stinson; William Rodríguez; Pati Kapadia; Monica Rajan; Casimiro Means Jr; Grant Copeland; Grzegorz Porter; Aixa Yates Other Interventions: Discharge Summary Assessment (RN) Last Done: 07/16/23 16:19 Coding Level of Care Code 79031 INP/OBS DISCH >30 MIN Diagnoses Weakness R53.1 Abnormal SPEP R77.8 Acute sinusitis J01.90 Abdominal pain R10.9 ASCVD (arteriosclerotic cardiovascular disease) I25.10 Ptosis of eyelid, left H02.402 Folate deficiency E53.8 Wernicke encephalopathy E51.2 Anemia D64.9 Esophageal dysphagia R13.19 Dysphagia type: esophageal phase Severe protein-calorie malnutrition E43
[2023-07-16] MEDS: HEPARIN SOD 5,000 UNIT/0.5 ML VIAL SQ SCH (10:11)
[2023-07-17 09:07] LABS: Creatinine Ur 18 mg/dL (20-320); Protein, Urine Random <4 mg/dL (5-25); Ur Protein/Creat Ratio mg/g NOTE mg/g creat (25-148); Urine Abnormal Protein Band 1 DNR mg/dL (NONE DETECTED); Urine Abnormal Protein Band 2 DNR mg/dL (NONE DETECTED); Urine Abnormal Protein Band 3 DNR mg/dL (NONE DETECTED); Urine Protein/Creatinine Ratio NOTE (0.025-0.148)
== END 2023-07-16 17:19 | DRG 628 ==
LOC: 3E 15:51 → ED 15:51 → SUATTDRO 07-04 03:44 → 3E 07-04 04:35 → SUATTDRO 07-06 09:22